=== PATIENT | female | born 1990 | race African-American/Black ===

== ENCOUNTER → 2016-04-15 | Outpatient (CLI) | payer OTHER ==
[2016-04-15 12:08] LABS: ABSOLUTE EOSINOPHILS # (AUTO) 0.1 10^3/uL (0.0-0.6); ABSOLUTE LYMPHOCYTES (AUTO) 1.5 10^3/uL (0.5-4.7); ABSOLUTE MONOCYTES (AUTO) 0.3 10^3/uL (0.1-1.4); ABSOLUTE NEUT (AUTO) 4.4 10^3/uL (1.7-8.2); BASOPHILS % (AUTO) 0.4 % (0-2); EOSINOPHILS % (AUTO) 2.1 % (0-6); HEMATOCRIT 38.3 % (36.0-47.0); HGB HCT DIFFERENCE -2.3; LYMPHOCYTES % (AUTO) 23.6 % (13-45); MEAN CORPUSCULAR HEMOGLOBIN 26.5 pg (27.0-33.4); MEAN CORPUSCULAR HGB CONC 31.4 g/dL (32.0-36.0); MEAN CORPUSCULAR VOLUME 84 fl (80-97); RED BLOOD COUNT 4.55 10^6/uL (3.72-5.28); RED CELL DISTRIBUTION WIDTH 13.6 % (11.5-14.0); SEGMENTED NEUTROPHILS % (AUTO) 68.9 % (42-78); WHITE BLOOD COUNT 6.4 10^3/uL (4.0-10.5)
[2016-04-15 12:32] LABS: ALANINE AMINOTRANSFERASE 20 U/L (9-52); ALBUMIN 3.8 g/dL (3.5-5.0); ALKALINE PHOSPHATASE 63 U/L (38-126); ANION GAP 13 (5-19); ASPARTATE AMINO TRANSFERASE 20 U/L (14-36); BILIRUBIN,TOTAL 0.5 mg/dL (0.2-1.3); BLOOD UREA NITROGEN 17 mg/dL (7-20); CALCIUM 9.7 mg/dL (8.4-10.2); CARBON DIOXIDE 27 mmol/L (22-30); CHLORIDE 99 mmol/L (98-107); CREATININE RESULT 0.54 mg/dL (0.52-1.25); GLUCOSE 257 mg/dL (75-110); POTASSIUM 4.4 mmol/L (3.6-5.0); SODIUM 138.6 mmol/L (137-145); TOTAL PROTEIN 7.1 g/dL (6.3-8.2)
== END ==
LOC: CCC 10:31
DX: E11.8 Type 2 diabetes mellitus with unspecified complications (principal)
CPT/HCPCS: 36415; 80053; 83036; 84443; 85025

== ENCOUNTER → 2016-07-23 | Outpatient (CLI) | payer OTHER ==
[2016-07-23 12:21] LABS: ANION GAP 15 (5-19); BLOOD UREA NITROGEN 15 mg/dL (7-20); CALCIUM 9.7 mg/dL (8.4-10.2); CARBON DIOXIDE 22 mmol/L (22-30); CHLORIDE 102 mmol/L (98-107); CREATININE RESULT 0.54 mg/dL (0.52-1.25); GLUCOSE 279 mg/dL (75-110); SODIUM 138.7 mmol/L (137-145)
== END ==
LOC: CCC 10:35
DX: E11.8 Type 2 diabetes mellitus with unspecified complications (principal)
CPT/HCPCS: 36415; 80048; 83036

== ENCOUNTER 2016-10-19 17:28 | Emergency (ER) | payer SELFPAY ==
[2016-10-19] MEDS ORDERED: ONDANSETRON ODT 4 MG TAB (6 TAB/DSPK) PO PRN (18:50)
[2016-10-19] MEDS ORDERED: PENICILLIN V POTASSIUM 500 MG TABLET PO ONE (18:50)
--- NOTE | 2016-10-19 18:52 | ER Document Report ---
ED Medical Screen (RME) - General Chief Complaint: High Blood Sugar Stated Complaint: BLOOD SUGAR PROBLEM Time Seen by Provider: 10/19/16 18:47 Mode of Arrival: Ambulatory Information source: Patient Notes: 26-year-old female that presents to the emergency room with intermittent elevations and her sugar. She does report that she has not had any fevers, but she has had some teeth pain after "cracking a tooth". Denies any abdominal pain , dysuria TRAVEL OUTSIDE OF THE [place] IN LAST 30 DAYS: No - HPI Onset: Last week Onset/Duration: Gradual Quality of pain: No pain Severity: None Pain Level: Denies Associated Symptoms: Other - dental pain. denies: Chest pain, Fever, Shortness of breath Exacerbated by: Denies Relieved by: Denies Similar symptoms previously: No Recently seen / treated by doctor: No - Related Data Smoking: Non-smoker Frequency of alcohol use: None Drug Abuse: None Allergies/Adverse Reactions: No Known Allergies Allergy (Verified 03/20/16 16:18) Past Medical History - General Information source: Patient - Social History Cigarette use (# per day): No Chew tobacco use (# tins/day): No Frequency of alcohol use: None Drug Abuse: None Lives with: Family Family history: Reviewed & Not Pertinent - Past Medical History Cardiac Medical History: Reports: None Pulmonary Medical History: Reports: None Denies: Hx Tuberculosis EENT Medical History: Reports: None Neurological Medical History: Reports: None Endocrine Medical History: Reports: Hx Diabetes Mellitus Type 1 Renal/ Medical History: Denies: Hx Peritoneal Dialysis Malignancy Medical History: Reports: None GI Medical History: Reports: None Musculoskeltal Medical History: Reports None Skin Medical History: Reports None Psychiatric Medical History: Denies: Hx Depression Traumatic Medical History: Reports: None Infectious Medical History: Reports: None Past Surgical History: Denies: Hx Pacemaker - Immunizations Immunizations up to date: Yes Hx Diphtheria, Pertussis, Tetanus Vaccination: Yes Review of Systems - Review of Systems Constitutional: denies: Chills, Fever EENT: See HPI Cardiovascular: No symptoms reported Respiratory: No symptoms reported Gastrointestinal: No symptoms reported Genitourinary: No symptoms reported Female Genitourinary: No symptoms reported Musculoskeletal: No symptoms reported Skin: No symptoms reported Hematologic/Lymphatic: No symptoms reported Neurological/Psychological: No symptoms reported Physical Exam - Vital signs Vitals: Temp Pulse Resp BP Pulse Ox 98.3 F 105 H 19 118/83 98 10/19/16 17:46 10/19/16 17:46 10/19/16 17:46 10/19/16 17:46 10/19/16 17:46 Notes: Physical exam: GENERAL: Well-appearing 26-year-old female, no acute distress, alert and oriented 3 HEAD: Atraumatic, normocephalic. EYES: Pupils equal round and reactive to light, extraocular movements intact, sclera anicteric, conjunctiva are normal. ENT: oropharynx clear without exudates. Moist mucous membranes. Does have some dental caries in the left upper and right upper with some tenderness over the tooth. Otherwise, the teeth look like they are in reasonable shape NECK: Normal range of motion, supple without lymphadenopathy or JVD. LUNGS: Breath sounds clear to auscultation bilaterally and equal. No wheezes rales or rhonchi. HEART: Regular rate and rhythm without murmurs, rubs or gallops. ABDOMEN: Soft, normoactive bowel sounds. No tenderness to palpation. No guarding, no rebound. No masses appreciated. EXTREMITIES: Normal range of motion, no pitting or edema. No clubbing or cyanosis. NEUROLOGICAL: Cranial nerves II through XII grossly intact. Normal speech, normal gait. PSYCH: Normal mood, normal affect. SKIN: Warm, Dry, normal turgor, no rashes or lesions noted. Course - Re-evaluation Re-evalutation: 10/19/16 18:49 Patient does have some signs of dental caries and she states that her sugars have been climbing in the 400 range. Due to this, I will treat her with some Penicillin VK for dental caries and I referred her to the [facility]. Repeat Accu-Chek in the ER is 187. Is tolerating fluids and otherwise looks good. 10/19/16 20:33 - Vital Signs Vital signs: Temp Pulse Resp BP Pulse Ox 97.9 F 88 16 101/18 L 100 10/19/16 19:36 10/19/16 19:36 10/19/16 19:36 10/19/16 19:36 10/19/16 19:36 - Laboratory Laboratory results interpreted by me: 10/19/16 17:49 POC Glucose 187 H Doctor's Discharge - Discharge Clinical Impression: Dental caries, Diabetes Condition: Stable Disposition: HOME, SELF-CARE Instructions: Dentist, Toothache ([facility]) Additional Instructions: Note: Take the Diflucan tablet to the antibiotics are complete if you start having symptoms of a yeast infection. Prescriptions: Fluconazole [Diflucan] 150 mg PO ONCE PRN #1 tablet PRN Reason: Penicillin V Potassium [Penicillin Vk 500 mg Tablet] 500 mg PO QID #28 tablet Referrals: [facility] [Provider Group] - Follow up as needed
[2016-10-19 19:37] VITALS: BP 101/18
== END 2016-10-19 19:37 | disposition home or self-care (01) ==
LOC: ER 17:28
DX: K02.9 Dental caries, unspecified (principal); E10.65 Type 1 diabetes mellitus with hyperglycemia
CPT/HCPCS: 82962; 99284

== ENCOUNTER 2016-10-27 21:16 | Emergency (ER) | payer SELFPAY ==
--- NOTE | 2016-10-27 22:56 | ER Document Report ---
ED General - General Mode of Arrival: Ambulatory Information source: Patient TRAVEL OUTSIDE OF THE [place] IN LAST 30 DAYS: No - HPI Onset: Just prior to arrival - Refer to HPI notes Similar symptoms previously: No Recently seen / treated by doctor: No <XIMENA BOLES - Last Filed: 10/28/16 02:36> <NOELCHON - Last Filed: 10/28/16 03:27> - General Chief Complaint: Nausea/Vomiting Stated Complaint: DIZZY Time Seen by Provider: 10/27/16 22:54 Notes: Patient is a 26-year-old female presenting to the emergency department for nausea and vomiting earlier this afternoon. Patient is an insulin-dependent diabetic. Patient states that her sugar has been 296 afternoon. Patient states she took her medications around 10:00 this morning. Patient took 14 units of NovoLog with his serial this afternoon. Patient also had a sharp headache, fruity breath and some blurry vision. Patient states that she has been feeling some dizziness and off-balance this when she walked this morning. Patient's last hemoglobin A1c was 9. Patient has had diabetes for 5 years and states her last DKA was July 2015. Patient denies any missed dosages of her medication. Patient states that she is finishing her menstrual cycle presently. Patient denies any chance of being . Patient has no known drug allergies. Patient's primary care physician is the [facility]. (XIMENA BOLES) - Related Data Allergies/Adverse Reactions: No Known Allergies Allergy (Verified 10/27/16 22:06) Past Medical History - General Information source: Patient - Social History Smoking Status: Never Smoker Cigarette use (# per day): No Chew tobacco use (# tins/day): No Smoking Education Provided: No Frequency of alcohol use: None Drug Abuse: None Family History: None Patient has suicidal ideation: No Patient has homicidal ideation: No Endocrine Medical History: Reports: Hx Diabetes Mellitus Type 1 Surgical Hx: Negative - Immunizations Immunizations up to date: Yes Hx Diphtheria, Pertussis, Tetanus Vaccination: Yes <XIMENA BOLES - Last Filed: 10/28/16 02:36> Review of Systems - Review of Systems Constitutional: No symptoms reported EENT: See HPI, Blurred vision Cardiovascular: See HPI, Dizziness Respiratory: No symptoms reported Gastrointestinal: See HPI, Nausea, Vomiting Genitourinary: No symptoms reported Female Genitourinary: No symptoms reported Musculoskeletal: No symptoms reported Skin: No symptoms reported Hematologic/Lymphatic: No symptoms reported Neurological/Psychological: See HPI, Headaches -: Yes All other systems reviewed and negative <XIMENA BOLES - Last Filed: 10/28/16 02:36> Physical Exam - Vital signs Interpretation: Normal <CLYDE BOLESINE - Last Filed: 10/28/16 02:36> <CHON COHEN - Last Filed: 10/28/16 03:27> - Vital signs Vitals: Temp Pulse Resp BP Pulse Ox 98.4 F 73 16 132/80 H 100 10/27/16 22:06 10/27/16 22:06 10/27/16 22:06 10/27/16 22:06 10/27/16 22:06 - Notes Notes: GENERAL: Alert, interacts well. No acute distress. HEAD: Normocephalic, atraumatic. EYES: Appear normal. Pupils equal, round, and reactive to light. ENT: Moist mucus membranes, tongue midline. NECK: Full range of motion. Supple. Trachea midline. LUNGS: Clear to auscultation bilaterally, no wheezes, rales, or rhonchi. No respiratory distress. HEART: Regular rate and rhythm. No murmurs, gallops, or rubs. ABDOMEN: Soft, non-tender. Non-distended. Normal bowel sounds. EXTREMITIES: Moves all 4 extremities spontaneously. Normal strength. No edema. NEUROLOGICAL: Alert and oriented x3. Normal speech. No focal neurological deficits. GSC 15. PSYCH: Normal affect, normal mood. SKIN: Warm, dry, normal turgor. No rashes or lesions noted. (XIMENA BOLES) Course - Laboratory Result Diagrams: 10/27/16 23:25 10/27/16 23:25 <ELVIXIMENA - Last Filed: 10/28/16 02:36> - Laboratory Result Diagrams: 10/27/16 23:25 10/27/16 23:25 <CHON COHEN - Last Filed: 10/28/16 03:27> - Re-evaluation Re-evalutation: 10/28/16 00:28 Presents emergency department chief plan nausea and vomiting earlier this afternoon. She is insulin-dependent diabetic that her sugar was running to 96. Camille lightheaded dizzy but not vertiginous in nature. Last hemoglobin A1c she says is greater than 10. She denies any headache neck pain or history of trauma or fall she is well-appearing nontoxic in no acute distress with stable vital signs not tachycardic and afebrile. No acute abdominal guarding rebound rigidity labs completely normal the exception of blood in her urine she says she is just getting off of her period. Her sugar here is 113 she is not DKA. No active vomiting or abdominal pain on examination her urinary tract infection. Given Zofran discharge follow-up primary care physician in 1-2 days and discussed reasons for ED return sooner 10/28/16 00:30 (CHON COHEN) - Vital Signs Vital signs: Temp Pulse Resp BP Pulse Ox 98.2 F 72 16 91/62 L 100 10/28/16 00:46 10/28/16 00:46 10/28/16 00:46 10/28/16 00:46 10/28/16 00:46 - Laboratory Laboratory results interpreted by me: 10/27/16 10/27/16 23:05 23:25 Creatinine 0.50 L Glucose 113 H Urine Protein 30 H Urine Blood LARGE H Discharge <XIMENA BOLES - Last Filed: 10/28/16 02:36> <CHON COHEN - Last Filed: 10/28/16 03:27> - Discharge Clinical Impression: Nausea, Dizziness Condition: Stable Disposition: HOME, SELF-CARE Additional Instructions: Nausea or Vomiting, Nonspecific Vomiting (or nausea without vomiting) can be caused by many different problems. Of course, it can mean that something's wrong with the stomach, such as "stomach flu," ulcers, or inflammation. But it can also be a symptom of a problem that has nothing to do with the stomach or intestines. Vomiting is common with severe headaches, earaches, and tonsillitis. We see it with pneumonia or heart attacks. Drugs can cause nausea. Many abdominal problems cause vomiting; for example, gallstones, kidney stones, pancreatitis, and intestinal obstruction (blocked bowels). In most cases, curing the vomiting depends on fixing the problem that caused it. For temporary relief, we may use an anti-nausea medicine. For home use, we can prescribe suppositories, chewable pills, pills that dissolve in the mouth, or liquid anti-nausea drugs. If the vomiting seems to be caused by a problem in the stomach, acid-suppressing drugs may be prescribed as well. It's important to avoid dehydration. Sip clear liquids. Take increasing amounts of fluid over the first 24 hours. Then start small amounts of bland foods (such as dry toast, applesauce, mashed potato). Avoid aspirin, tobacco, and alcohol. Gradually resume your usual diet. If the vomiting worsens, if the problem that's making you vomit worsens, or if there's evidence of bleeding in the stomach (such as black, tarry stool, bloody or black vomit, or lightheadedness), you should return immediately. Call your doctor if you aren't improved in 24 to 36 hours. Dizziness Under normal circumstances, your sense of balance is controlled by a number of signals that your brain receives from several locations: Eyes. No matter what your position, visual signals help you determine where your body is in space and how it's moving. Sensory nerves. These are in your skin, muscles and joints. Sensory nerves send messages to your brain about body movements and positions. Inner ear. The organ of balance in your inner ear is the vestibular labyrinth. It includes loop-shaped structures (semicircular canals) that contain fluid and fine, hair-like sensors that monitor the rotation of your head. Near the semicircular canals are the utricle and saccule, which contain tiny particles called otoconia ([id number]). These particles are attached to sensors that help detect gravity and [id number] motion. Good balance depends on at least two of these three sensory systems working well. For instance, closing your eyes while washing your hair in the shower doesn't mean you'll lose your balance. Signals from your inner ear and sensory nerves help keep you upright. However, if your central nervous system can't process signals from all of these locations, if the messages are contradictory, or if the sensory systems aren't functioning properly, you may experience loss of balance. Dizziness may have a number of potential causes. These may include: Vertigo Vertigo - the false sense of motion or spinning - is the most common symptom of dizziness. Sitting up or moving around may make it worse. Sometimes vertigo is severe enough to cause nausea and vomiting. Vertigo usually results from a problem with the nerves and the structures of the balance mechanism in your inner ear (vestibular system), which sense movement and changes in your head position. Abnormal rhythmic eye movements ( nystagmus) almost always accompany vertigo. Causes of vertigo may include: Benign paroxysmal positional vertigo (BPPV). BPPV involves intense, brief episodes of vertigo associated with a change in the position of your head, often when you turn over in bed or sit up in the morning. It occurs when normal calcium carbonate crystals (otoconia) break loose and fall into the wrong part of the canals in your inner ear. When these particles shift, they stimulate sensors in your ear, producing an episode of vertigo. Doctors don't know what causes BPPV, but it may be a natural result of aging. Trauma to your head also may lead to BPPV. Inflammation in the inner ear. Signs and symptoms of inflammation of the inner ear (acute vestibular neuronitis or labyrinthitis) include sudden, intense vertigo that may persist for several days, with nausea and vomiting. It can be incapacitating, requiring bed rest to minimize the signs and symptoms. Fortunately, vestibular neuronitis generally subsides and clears up on its own. Recovery time may be shorter with vestibular rehabilitation exercises. Although the cause of this condition is unknown, it may be a viral infection. Meniere's disease. This disease involves the excessive buildup of fluid in your inner ear. It may affect adults at any age and is characterized by sudden episodes of vertigo lasting 30 minutes to an hour or longer. Other signs and symptoms include the feeling of fullness in your ear, buzzing or ringing in your ear (tinnitus), and fluctuating hearing loss. The cause of Meniere's disease is unknown. Vestibular migraine. People who experience a vestibular migraine are very sensitive to motion. Dizziness and vertigo caused by a vestibular migraine may be triggered by turning your head quickly, being in a crowded or confusing place , driving or riding in a vehicle, or even watching movement on TV. A vestibular migraine may cause feelings of imbalance or unsteadiness, hearing loss, "muffled " hearing, or ringing in your ears (tinnitus). For most people with a vestibular migraine, vertigo doesn't necessarily happen at the same time as the headache. Instead, typical migraine triggers may lead to vertigo without an actual migraine. Attacks of migrainous vertigo can last from a few minutes to several days. Acoustic neuroma. An acoustic neuroma (schwannoma) is a noncancerous (benign ) growth on the acoustic nerve, which connects the inner ear to your brain. Signs and symptoms of an acoustic neuroma may include dizziness, loss of balance , hearing loss and tinnitus. Rapid changes in motion. Riding on roller coasters or in boats, cars or even airplanes may on occasion make you dizzy. Other causes. Rarely, vertigo can be a symptom of a more serious neurological problem such as a stroke, brain hemorrhage or multiple sclerosis. Feeling of faintness (presyncope) "Presyncope" is the medical term for feeling faint and lightheaded without losing consciousness. Sometimes nausea, pale skin and a sense of dizziness accompany a feeling of faintness. Causes of presyncope include: Drop in blood pressure (orthostatic hypotension). A dramatic drop in your systolic blood pressure - the higher number in your blood pressure reading - may result in lightheadedness or a feeling of faintness. It can occur after sitting up or standing too quickly. Inadequate output of blood from the heart. Conditions such as partially blocked arteries (atherosclerosis), disease of the heart muscle (cardiomyopathy) , abnormal heart rhythm (arrhythmia) or a decrease in blood volume may cause inadequate blood flow from your heart. Loss of balance (disequilibrium) Disequilibrium is the loss of balance or the feeling of unsteadiness when you walk. Causes may include: Inner ear (vestibular) problems. Abnormalities with your inner ear can cause you to feel like you are floating, have a heavy head or are unsteady in the dark. Sensory disorders. Failing vision and nerve damage in your legs (peripheral neuropathy) are common in older adultsand may result in difficulty maintaining your balance. Joint and muscle problems. Muscle weakness and osteoarthritis - the type of arthritis that involves wear and tear of your joints - can contribute to loss of balance when it involves your weight-bearing joints. Medications. Loss of balance can be a side effect of certain medications, such as anti-seizure drugs, sedatives and tranquilizers. Lightheadedness and other kinds of 'dizziness' Feeling lightheaded is the feeling of being "spaced out" or having the sensation of spinning inside your head. It can also give you the sensation that if your lightheadedness worsens, you might lose consciousness. Causes may include: Inner ear disorders. These abnormalities of your inner ear can lead to illusions of motion and make you feel like you're floating. Anxiety disorders. Certain anxiety disorders, such as panic attacks and a fear of leaving home or being in large, open spaces (agoraphobia), may cause lightheadedness. Hyperventilation. Abnormally rapid breathing that often accompanies anxiety disorders may make you feel lightheaded. Referrals: [facility] [Provider Group] (Call for a follow-up appointment in 3- 5 days return for increasing worsening or new symptoms) Scribe Attestation: 10/28/16 00:30 I personally performed the services described in the documentation reviewed the documentation recorded by my scribe in my presence and it accurately and completely records my words and actions (CHON COHEN) Scribe Documentation - Scribe Written by Shiela:: Shiela Valdes, 10/28/2016 2:50 acting as scribe for :: Noel <XIMENA BOLES - Last Filed: 10/28/16 02:36>
[2016-10-27] MEDS ORDERED: MECLIZINE HCL 25 MG TABLET PO ONE (23:17)
[2016-10-27] MEDS ORDERED: ONDANSETRON 4 MG TAB.RAPDIS PO ONE (23:18)
[2016-10-27 23:31] LABS: APPEARANCE,URINE SLIGHTLY-CLOUDY; BILIRUBIN,URINE NEGATIVE (NEGATIVE); GLUCOSE, URINE NEGATIVE (NEGATIVE); KETONES,URINE NEGATIVE (NEGATIVE); LEUKOCYTE ESTERASE,URINE NEGATIVE (NEGATIVE); NITRITE,URINE NEGATIVE (NEGATIVE); PROTEIN,URINE 30 mg/dL (NEGATIVE); URINE SPECIFIC GRAVITY 1.013; UROBILINOGEN,URINE NEGATIVE mg/dL (<2.0)
[2016-10-27 23:37] LABS: ABSOLUTE BASOPHILS # (AUTO) 0.1 10^3/uL (0.0-0.2); ABSOLUTE EOSINOPHILS # (AUTO) 0.2 10^3/uL (0.0-0.6); ABSOLUTE LYMPHOCYTES (AUTO) 2.5 10^3/uL (0.5-4.7); ABSOLUTE MONOCYTES (AUTO) 0.4 10^3/uL (0.1-1.4); ABSOLUTE NEUT (AUTO) 4.2 10^3/uL (1.7-8.2); BASOPHILS % (AUTO) 0.8 % (0-2); EOSINOPHILS % (AUTO) 2.4 % (0-6); HEMATOCRIT 37.5 % (36.0-47.0); HEMOGLOBIN 12.6 g/dL (12.0-15.5); HGB HCT DIFFERENCE 0.3; MEAN CORPUSCULAR HEMOGLOBIN 27.6 pg (27.0-33.4); MEAN CORPUSCULAR HGB CONC 33.6 g/dL (32.0-36.0); MEAN CORPUSCULAR VOLUME 82 fl (80-97); RED BLOOD COUNT 4.57 10^6/uL (3.72-5.28); RED CELL DISTRIBUTION WIDTH 12.9 % (11.5-14.0); SEGMENTED NEUTROPHILS % (AUTO) 57.8 % (42-78); WHITE BLOOD COUNT 7.3 10^3/uL (4.0-10.5)
[2016-10-27 23:45] LABS: URINE BARBITURATES SCREEN NEGATIVE; URINE METHADONE SCREEN NEGATIVE; URINE OPIATES LOW NEGATIVE; URINE PHENCYCLIDINE SCREEN NEGATIVE
[2016-10-27 23:51] LABS: ANION GAP 12 (5-19); BLOOD UREA NITROGEN 11 mg/dL (7-20); CALCIUM 10.2 mg/dL (8.4-10.2); CARBON DIOXIDE 27 mmol/L (22-30); CHLORIDE 103 mmol/L (98-107); GLUCOSE 113 mg/dL (75-110); POTASSIUM 3.9 mmol/L (3.6-5.0); SODIUM 141.6 mmol/L (137-145)
[2016-10-28 00:21] LABS: VENOUS BLOOD BASE EXCESS -1.5 mmol/L; VENOUS BLOOD HCO3 25.3 mmol/L (20-32); VENOUS BLOOD PCO2 51.5 mmHg (35-63); VENOUS BLOOD PH 7.31 (7.30-7.42)
[2016-10-28 00:50] VITALS: BP 91/62
== END 2016-10-28 00:51 | disposition home or self-care (01) ==
LOC: ER 21:16
DX: R11.2 Nausea with vomiting, unspecified (principal); R42 Dizziness and giddiness; R51 Headache; Z79.4 Long term (current) use of insulin; E11.9 Type 2 diabetes mellitus without complications
CPT/HCPCS: 99284; 36415; 85025; 81025; 80048; 81001; 80307; 82803; S0119

== ENCOUNTER → 2016-12-29 | Outpatient (CLI) | payer OTHER | LOC: OD 15:27 | DX: E11.8 Type 2 diabetes mellitus with unspecified complications (principal) | CPT/HCPCS: 36415; 83036 ==

== ENCOUNTER 2017-01-18 19:11 | Emergency (ER) | payer SELFPAY ==
[2017-01-18] MEDS ORDERED: HYDROCODONE/ACETAMINOPHEN 5-325 MG TABLET PO ONE (19:49)
[2017-01-18] MEDS ORDERED: NORMAL SALINE 1000 ML 1,000 ML IV ONE ×2 (19:49→21:43)
[2017-01-18] MEDS ORDERED: ONDANSETRON HCL INJ/PF 4 MG/2 ML SDV IV ONE (19:50)
--- NOTE | 2017-01-18 19:54 | ER Document Report ---
ED GI/ - General Chief Complaint: Pelvic Pain Stated Complaint: ABDOMINAL PAIN Time Seen by Provider: 01/18/17 19:39 Notes: Patient is a 17-year-old female that comes emergency department for chief complaint of sharp mid to left lower pelvic pain, nausea, and breaking into a sweat with a particularly bad episode this morning of pain. She also reports vaginal bleeding that started today. She states she thinks she ruptured cyst, she had a similar episode about a month ago although she did not have an ultrasound at that time. She also states she has not eaten or drank much today , she is a type I diabetic, she did not take insulin this morning. She denies fever, she denies current nausea, she states pain has improved but not resolved. She denies vaginal discharge, flank pain, she states she has not been sexually active in over a year. TRAVEL OUTSIDE OF THE [place] IN LAST 30 DAYS: No - Related Data Allergies/Adverse Reactions: No Known Allergies Allergy (Unverified 01/18/17 19:22) Past Medical History - General Information source: Patient - Social History Smoking Status: Never Smoker Frequency of alcohol use: None Drug Abuse: None Lives with: Family Family History: Reviewed & Not Pertinent Patient has suicidal ideation: No Patient has homicidal ideation: No Endocrine Medical History: Reports: Hx Diabetes Mellitus Type 1 Renal/ Medical History: Denies: Hx Peritoneal Dialysis Surgical Hx: Negative - Immunizations Immunizations up to date: Yes Hx Diphtheria, Pertussis, Tetanus Vaccination: Yes Review of Systems - Review of Systems Constitutional: No symptoms reported EENT: No symptoms reported Cardiovascular: No symptoms reported Respiratory: No symptoms reported Gastrointestinal: See HPI Genitourinary: See HPI Female Genitourinary: See HPI Musculoskeletal: No symptoms reported Skin: No symptoms reported Hematologic/Lymphatic: No symptoms reported Neurological/Psychological: No symptoms reported Physical Exam - Vital signs Vitals: Temp Pulse Resp BP Pulse Ox 97.4 F 71 16 95/61 L 99 01/18/17 19:17 01/18/17 19:17 01/18/17 19:17 01/18/17 19:17 01/18/17 19:17 Interpretation: Normal - General General appearance: Appears well, Alert In distress: None - HEENT Head: Normocephalic, Atraumatic Eyes: Normal Conjunctiva: Normal Extraocular movements intact: Yes Eyelashes: Normal Pupils: PERRL Nasal: Normal Mouth/Lips: Normal Mucous membranes: Dry Pharynx: Normal Neck: Normal - Respiratory Respiratory status: No respiratory distress Chest status: Nontender Breath sounds: Normal Chest palpation: Normal - Cardiovascular Rhythm: Regular. No: Tachycardia Heart sounds: Normal auscultation, S1 appreciated, S2 appreciated Murmur: No - Abdominal Inspection: Normal Distension: No distension Bowel sounds: Normal Tenderness: Nontender. No: Tender, Guarding Organomegaly: No organomegaly - Back Back: Normal, Nontender. No: Tender, CVA tenderness - Extremities General upper extremity: Normal inspection, Nontender, Normal ROM, Normal strength General lower extremity: Normal inspection, Nontender, Normal ROM, Normal strength - Neurological Neuro grossly intact: Yes Cognition: Normal Orientation: AAOx4 [place] Coma Scale Eye Opening: Spontaneous Clement Coma Scale Verbal: Oriented Clement Coma Scale Motor: Obeys Commands [place] Coma Scale Total: 15 Speech: Normal Motor strength normal: LUE, RUE, LLE, RLE Sensory: Normal - Psychological Associated symptoms: Normal affect, Normal mood - Skin Skin Temperature: Warm Skin Moisture: Dry Skin Color: Normal Course - Re-evaluation Re-evalutation: Patient appears clinically dry with dry mucous membranes, urinalysis shows elevated specific gravity, ketones, glucose, questionable urinary tract infection. CBC shows mild leukocytosis. This is nonspecific, patient has a fairly benign abdomen with only mild left lower quadrant tenderness on examination. Low suspicion of PID based on her reported symptoms, ultrasound does not show anything other than trace free fluid. Chemistry shows slightly low and bicarbonate, anion gap is normal, hyperglycemia noted. Patient given several boluses of IV fluids. Venous blood gas was checked at the same time and does not show acidosis whatsoever. I reevaluated patient. I did discuss her slightly lowered bicarbonate, dehydration, ketones in the urine, and type 1 diabetes risks. Discussed DKA and potential admission. Patient states that after IV fluid she feels normal again. She is asking to leave. Declined antibiotics for her urine, urine culture placed. Patient is very compliant with her medications, she is only had DKA once since being diagnosed with type diabetes. Because of venous blood gas , lack of anion gap, hydration here, and patient intelligence and compliance after discussion with patient with strict return precautions she states that she will leave and return if she worsens in any way. Patient and family member state understanding and agreement. - Vital Signs Vital signs: Temp Pulse Resp BP Pulse Ox 97.4 F 88 16 109/68 100 01/18/17 19:17 01/19/17 00:43 01/18/17 19:17 01/19/17 00:43 01/19/17 00:43 - Laboratory Result Diagrams: 01/18/17 20:48 01/18/17 21:28 Laboratory results interpreted by me: 01/18/17 01/18/17 01/18/17 20:48 21:11 21:28 WBC 13.1 H Seg Neutrophils % 88.4 H Lymphocytes % 8.5 L Monocytes % 2.2 L Absolute Neutrophils 11.6 H Carbon Dioxide 20 L Glucose 361 H POC Glucose 362 H Urine Glucose (UA) Urine Ketones Urine Blood Ur Leukocyte Esterase 01/18/17 01/18/17 01/19/17 23:12 23:19 00:02 WBC Seg Neutrophils % Lymphocytes % Monocytes % Absolute Neutrophils Carbon Dioxide Glucose POC Glucose 206 H 179 H Urine Glucose (UA) >=500 H Urine Ketones 80 H Urine Blood LARGE H Ur Leukocyte Esterase TRACE H Discharge - Discharge Clinical Impression: Pelvic pain, Hyperglycemia, Dehydration Condition: Stable Disposition: HOME, SELF-CARE Additional Instructions: Continue rehydration at home, try not to miss any insulin doses, follow-up with your provider for additional management. Your ultrasound shows some free fluid which does suggest you ruptured an ovarian cyst, but no concerning abnormalities are seen on your pelvic ultrasound. Please return the emergency department if you worsen in anyway including vomiting, returned or increased pain, fever, or any other concerning symptoms. Forms: Return to Work Referrals: [facility] [Primary Care Provider] - Follow up as needed
[2017-01-18] MEDS ORDERED: ACETAMINOPHEN 325 MG TABLET PO ONE (20:20)
[2017-01-18 21:01] LABS: ABSOLUTE BASOPHILS # (AUTO) 0.1 10^3/uL (0.0-0.2); ABSOLUTE LYMPHOCYTES (AUTO) 1.1 10^3/uL (0.5-4.7); ABSOLUTE MONOCYTES (AUTO) 0.3 10^3/uL (0.1-1.4); ABSOLUTE NEUT (AUTO) 11.6 10^3/uL (1.7-8.2); BASOPHILS % (AUTO) 0.7 % (0-2); EOSINOPHILS % (AUTO) 0.2 % (0-6); LYMPHOCYTES % (AUTO) 8.5 % (13-45); MEAN CORPUSCULAR HEMOGLOBIN 28.1 pg (27.0-33.4); MEAN CORPUSCULAR HGB CONC 33.4 g/dL (32.0-36.0); MEAN CORPUSCULAR VOLUME 84 fl (80-97); MONOCYTES % (AUTO) 2.2 % (3-13); RED BLOOD COUNT 4.64 10^6/uL (3.72-5.28); RED CELL DISTRIBUTION WIDTH 12.7 % (11.5-14.0); SEGMENTED NEUTROPHILS % (AUTO) 88.4 % (42-78); WHITE BLOOD COUNT 13.1 10^3/uL (4.0-10.5)
[2017-01-18 21:51] LABS: ALANINE AMINOTRANSFERASE 27 U/L (5-35); ALBUMIN 4.6 g/dL (3.7-5.6); ALKALINE PHOSPHATASE 89 U/L (50-135); ANION GAP 17 (5-19); ASPARTATE AMINO TRANSFERASE 16 U/L (5-30); BILIRUBIN,DIRECT 0.3 mg/dL (0.0-0.4); BILIRUBIN,TOTAL 1.1 mg/dL (0.2-1.3); BLOOD UREA NITROGEN 15 mg/dL (7-20); CARBON DIOXIDE 20 mmol/L (22-30); CHLORIDE 103 mmol/L (98-107); CREATININE RESULT 0.56 mg/dL (0.52-1.25); GLUCOSE 361 mg/dL (75-110); POTASSIUM 4.4 mmol/L (3.6-5.0); SODIUM 140.2 mmol/L (137-145); TOTAL PROTEIN 8.1 g/dL (6.3-8.2)
[2017-01-18 21:59] LABS: VENOUS BLOOD BASE EXCESS -3.7 mmol/L; VENOUS BLOOD HCO3 22.4 mmol/L (20-32); VENOUS BLOOD PCO2 44.7 mmHg (35-63); VENOUS BLOOD PH 7.32 (7.30-7.42)
--- NOTE | 2017-01-18 23:48 | RADIOLOGY REPORT (SQ) ---
EXAM DESCRIPTION: U/S NON OB PEL TV W/DOPPLER COMPLETED DATE/TIME: 01/18/2017 11:39 pm REASON FOR STUDY: sharp left pelvic pain COMPARISON: None. TECHNIQUE: Dynamic and static grayscale images acquired of the pelvis via transvaginal approach and recorded on PACS. Additional selected color Doppler and spectral images recorded. LIMITATIONS: None. FINDINGS: UTERUS: Contour normal. No mass. ENDOMETRIAL STRIPE: No focal or generalized thickening. No masses. CERVIX: No nabothian cysts. RIGHT OVARY: No abnormal masses. RIGHT OVARY DOPPLER: Normal arterial vascular flow without evidence for torsion. LEFT OVARY: No abnormal masses. LEFT OVARY DOPPLER: Normal arterial vascular flow without evidence for torsion. FREE FLUID: Small amount of free fluid is identified in the posterior cul-de-sac. OTHER: No other significant finding. MEASUREMENTS: UTERUS: 7.6 x 4.1 x 5.3 cm ENDOMETRIAL STRIPE: 14 mm RIGHT OVARY: 2.9 x 1.8 x 3.0 cm LEFT OVARY: 3.3 x 1.4 x 1.8 cm IMPRESSION: No significant pelvic abnormalities were identified. Findings as noted above. TECHNICAL DOCUMENTATION: JOB ID: [id number] [employer]- All Rights Reserved
[2017-01-18 23:57] LABS: APPEARANCE,URINE CLEAR; BILIRUBIN,URINE NEGATIVE (NEGATIVE); GLUCOSE, URINE >=500 mg/dL (NEGATIVE); KETONES,URINE 80 mg/dL (NEGATIVE); LEUKOCYTE ESTERASE,URINE TRACE (NEGATIVE); NITRITE,URINE NEGATIVE (NEGATIVE); PROTEIN,URINE NEGATIVE (NEGATIVE); URINE SPECIFIC GRAVITY 1.039; UROBILINOGEN,URINE NEGATIVE mg/dL (<2.0)
[2017-01-19] MEDS ORDERED: NORMAL SALINE 1000 ML 1,000 ML IV ONE (00:10)
[2017-01-19 00:45] VITALS: BP 109/68
== END 2017-01-19 00:45 | disposition home or self-care (01) ==
LOC: MERGE 19:11 → EDBD 19:11 → ER 19:11
DX: R10.2 Pelvic and perineal pain (principal); E10.65 Type 1 diabetes mellitus with hyperglycemia; E86.0 Dehydration; R10.9 Unspecified abdominal pain; R11.0 Nausea
CPT/HCPCS: 99284; 36415; 87086; 82962; 85025; 81025; 80053; 81001; 82803; 76830; 93976; J2405; J7030

== ENCOUNTER 2017-03-13 12:51 | Emergency (ER) | payer OTHER ==
[2017-03-13 14:11] LABS: ABSOLUTE BASOPHILS # (AUTO) 0.1 10^3/uL (0.0-0.2); ABSOLUTE EOSINOPHILS # (AUTO) 0.2 10^3/uL (0.0-0.6); ABSOLUTE LYMPHOCYTES (AUTO) 2.7 10^3/uL (0.5-4.7); ABSOLUTE MONOCYTES (AUTO) 0.7 10^3/uL (0.1-1.4); ABSOLUTE NEUT (AUTO) 5.7 10^3/uL (1.7-8.2); BASOPHILS % (AUTO) 0.5 % (0-2); EOSINOPHILS % (AUTO) 2.4 % (0-6); HEMATOCRIT 36.7 % (36.0-47.0); HEMOGLOBIN 12.4 g/dL (12.0-15.5); HGB HCT DIFFERENCE 0.5; LYMPHOCYTES % (AUTO) 28.6 % (13-45); MEAN CORPUSCULAR HEMOGLOBIN 27.6 pg (27.0-33.4); MEAN CORPUSCULAR HGB CONC 33.7 g/dL (32.0-36.0); MEAN CORPUSCULAR VOLUME 82 fl (80-97); MONOCYTES % (AUTO) 7.5 % (3-13); RED BLOOD COUNT 4.48 10^6/uL (3.72-5.28); WHITE BLOOD COUNT 9.3 10^3/uL (4.0-10.5)
[2017-03-13 14:24] LABS: ALANINE AMINOTRANSFERASE 24 U/L (9-52); ALBUMIN 4.2 g/dL (3.5-5.0); ALKALINE PHOSPHATASE 83 U/L (38-126); ANION GAP 12 (5-19); ASPARTATE AMINO TRANSFERASE 14 U/L (14-36); BILIRUBIN,DIRECT 0.2 mg/dL (0.0-0.4); BILIRUBIN,TOTAL 0.4 mg/dL (0.2-1.3); BLOOD UREA NITROGEN 11 mg/dL (7-20); CALCIUM 10.1 mg/dL (8.4-10.2); CARBON DIOXIDE 25 mmol/L (22-30); CHLORIDE 104 mmol/L (98-107); CREATININE RESULT 0.58 mg/dL (0.52-1.25); GLUCOSE 157 mg/dL (75-110); POTASSIUM 3.7 mmol/L (3.6-5.0); SODIUM 141.2 mmol/L (137-145); TOTAL PROTEIN 7.5 g/dL (6.3-8.2)
[2017-03-13 14:30] LABS: APPEARANCE,URINE TURBID; BILIRUBIN,URINE NEGATIVE (NEGATIVE); GLUCOSE, URINE >=500 mg/dL (NEGATIVE); KETONES,URINE TRACE mg/dL (NEGATIVE); LEUKOCYTE ESTERASE,URINE LARGE (NEGATIVE); NITRITE,URINE NEGATIVE (NEGATIVE); PROTEIN,URINE >=500 mg/dL (NEGATIVE); URINE SPECIFIC GRAVITY 1.039; UROBILINOGEN,URINE NEGATIVE mg/dL (<2.0)
[2017-03-13 14:33] LABS: WBC,URINE 20-30 /HPF
[2017-03-13 14:34] LABS: BACTERIA,URINE TRACE /HPF; RBC,URINE 30-50 /HPF
[2017-03-13] MEDS ORDERED: HYDROCODONE/ACETAMINOPHEN 5-325 MG TABLET PO ONE (14:40)
[2017-03-13] MEDS ORDERED: CEFTRIAXONE 1 GM/D5W RTU 1 GM/50 ML RTUPB IV ONE (14:40)
[2017-03-13] MEDS ORDERED: NITROFURANTOIN MONOHYD/M-CRYST 100 MG CAPSULE PO ONE (15:00)
--- NOTE | 2017-03-13 15:12 | ER Document Report ---
ED Blood Sugar Problem - General Chief Complaint: High Blood Sugar Stated Complaint: BLOOD SUGAR PROBLEMS Time Seen by Provider: 03/13/17 13:16 Mode of Arrival: Ambulatory Information source: Patient Notes: Patient is a 26-year-old female who presents to the ER today for burning with urination 3 days. Patient admits to hesitancy and frequency of urination. She also states that she has some bleeding and she is unsure if she has started her menstrual cycle as it is 4 days early or if the bleeding is coming with the urine. She denies any abdominal or back pain. She denies any fevers or chills. She states that she has been passing little clots of blood. Patient also is a type I diabetic and states that she her sugars have been high , in the 300s over the past couple of days. She states that she gave herself her insulin and has been keeping it down the best she can. TRAVEL OUTSIDE OF THE [place] IN LAST 30 DAYS: No - Related Data Allergies/Adverse Reactions: No Known Allergies Allergy (Verified 03/13/17 12:51) Past Medical History - General Information source: Patient - Social History Smoking Status: Never Smoker Frequency of alcohol use: None Drug Abuse: None Family History: None, Reviewed & Not Pertinent Patient has suicidal ideation: No Patient has homicidal ideation: No Pulmonary Medical History: Denies: Hx Tuberculosis Endocrine Medical History: Reports: Hx Diabetes Mellitus Type 1 Renal/ Medical History: Denies: Hx Peritoneal Dialysis Psychiatric Medical History: Denies: Hx Depression Past Surgical History: Denies: Hx Pacemaker - Immunizations Immunizations up to date: Yes Hx Diphtheria, Pertussis, Tetanus Vaccination: Yes Review of Systems - Review of Systems Constitutional: No symptoms reported EENT: No symptoms reported Cardiovascular: No symptoms reported Respiratory: No symptoms reported Gastrointestinal: No symptoms reported Genitourinary: No symptoms reported Female Genitourinary: See HPI Musculoskeletal: No symptoms reported Skin: No symptoms reported Hematologic/Lymphatic: No symptoms reported Neurological/Psychological: No symptoms reported Physical Exam - Vital signs Vitals: Temp Pulse Resp BP Pulse Ox 98.0 F 100 16 109/87 H 99 03/13/17 13:06 03/13/17 13:06 03/13/17 13:06 03/13/17 13:06 03/13/17 13:06 - Notes Notes: PHYSICAL EXAMINATION: GENERAL: Well-appearing and in no acute distress. HEAD: Atraumatic, normocephalic. EYES: Pupils equal round and reactive to light, extraocular movements intact, sclera anicteric, conjunctiva are normal. NECK: Normal range of motion, supple without lymphadenopathy LUNGS: CTAB and equal. No wheezes rales or rhonchi. HEART: Regular rate and rhythm without murmurs ABDOMEN: Soft, no tenderness. No guarding, no rebound BACK: no vertebral tenderness, normal ROM GI/: no CVA tenderness Pelvic: Some blood in vaginal canal, no discharge noted, normal tenderness to exam, no cervical motion or adnexal tenderness EXTREMITIES: Normal range of motion, no pitting edema. No cyanosis. NEUROLOGICAL: Cranial nerves grossly intact. Normal sensory/motor exams. PSYCH: Normal mood, normal affect. SKIN: Warm, Dry, normal turgor, no rashes or lesions noted Course - Re-evaluation Re-evalutation: 03/13/17 16:59 Urinalysis shows large leuks with 20-30 white blood cells, patient started on Macrobid, wet mount negative, gonorrhea and chlamydia negative. I will also provide her with Pyridium. Patient appears to have started her menstrual cycle. 03/13/17 16:59 - Vital Signs Vital signs: Temp Pulse Resp BP Pulse Ox 97.5 F 84 15 112/65 100 03/13/17 15:41 03/13/17 15:41 03/13/17 15:41 03/13/17 15:41 03/13/17 15:41 - Laboratory Result Diagrams: 03/13/17 13:35 03/13/17 13:35 Laboratory results interpreted by me: 03/13/17 03/13/17 03/13/17 13:35 13:35 15:51 Glucose 157 H POC Glucose 66 L Urine Protein >=500 H Urine Glucose (UA) >=500 H Urine Ketones TRACE H Urine Blood LARGE H Ur Leukocyte Esterase LARGE H Urine Ascorbic Acid 40 H Discharge - Discharge Clinical Impression: menstrual cycle UTI (urinary tract infection) Qualifiers: Urinary tract infection type: site unspecified Hematuria presence: without hematuria Qualified Code(s): N39.0 - Urinary tract infection, site not specified Condition: Stable Disposition: HOME, SELF-CARE Additional Instructions: Return immediately for any new or worsening symptoms. Follow up with primary care provider, call tomorrow to make followup appointment. Prescriptions: Nitrofurantoin/Nitrofuran Mac [Macrobid 100 mg Capsule] 1 tab PO BID #20 capsule Phenazopyridine HCl [Pyridium 200 mg Tablet] 200 mg PO TID #15 tablet
[2017-03-13] MEDS ORDERED: ACETAMINOPHEN 325 MG TABLET PO ONE (15:32)
[2017-03-13 15:44] VITALS: BP 112/65
== END 2017-03-13 15:44 | disposition home or self-care (01) ==
LOC: ER 12:51
DX: N39.0 Urinary tract infection, site not specified (principal); N92.6 Irregular menstruation, unspecified; E10.65 Type 1 diabetes mellitus with hyperglycemia; R30.9 Painful micturition, unspecified; R39.11 Hesitancy of micturition; R35.0 Frequency of micturition
CPT/HCPCS: 99283; 36415; 87210; 82962; 85025; 80053; 81001; 87491; 87591; J8499

== ENCOUNTER 2017-03-23 09:52 | Emergency (ER) | payer SELFPAY ==
[2017-03-23] MEDS ORDERED: NORMAL SALINE 1000 ML 1,000 ML IV ONE (10:38)
[2017-03-23] MEDS ORDERED: DIPHENHYDRAMINE HCL 50 MG/ML VIAL IV ONE (10:38)
[2017-03-23] MEDS ORDERED: PROCHLORPERAZINE EDISYLATE INJ 10 MG/2 ML VIAL IV ONE (10:38)
--- NOTE | 2017-03-23 10:53 | ER Document Report ---
ED General - General Chief Complaint: Headache Stated Complaint: VISION BLURRED, HEADACHE Time Seen by Provider: 03/23/17 10:14 Mode of Arrival: Ambulatory Information source: Patient Notes: 26-year-old female history of diabetes migraine headaches presents with complaints of migraine headache with blurry vision. Patient notes light bothers her. Symptoms have been ongoing for about 4 days now. She admits to nausea associated with it. Patient was recently treated for urinary tract infection with Macrobid and believe this is causing nausea TRAVEL OUTSIDE OF THE [place] IN LAST 30 DAYS: No - HPI Onset: Last week Onset/Duration: Persistent Quality of pain: Achy Severity: Mild Pain Level: 1 Associated symptoms: Headache, Nausea, Vomiting Exacerbated by: Other Relieved by: Denies Similar symptoms previously: No Recently seen / treated by doctor: Yes - Related Data Allergies/Adverse Reactions: No Known Allergies Allergy (Verified 03/13/17 12:51) Past Medical History - Social History Smoking Status: Never Smoker Cigarette use (# per day): No Chew tobacco use (# tins/day): No Smoking Education Provided: No Frequency of alcohol use: None Drug Abuse: None Family History: None, Reviewed & Not Pertinent Patient has suicidal ideation: No Patient has homicidal ideation: No Pulmonary Medical History: Denies: Hx Tuberculosis Endocrine Medical History: Reports: Hx Diabetes Mellitus Type 1 Renal/ Medical History: Denies: Hx Peritoneal Dialysis Psychiatric Medical History: Denies: Hx Depression Past Surgical History: Denies: Hx Pacemaker - Immunizations Immunizations up to date: Yes Hx Diphtheria, Pertussis, Tetanus Vaccination: Yes Review of Systems - Review of Systems Notes: REVIEW OF SYSTEMS: CONSTITUTIONAL : Denies fever, chills, or sweats. Denies recent illness. EENT: Denies eye, ear, throat, or mouth pain or symptoms. Denies nasal or sinus congestion or discharge. Denies throat, tongue, or mouth swelling or difficulty swallowing. CARDIOVASCULAR: Denies chest pain. Denies palpitations or racing or irregular heart beat. Denies ankle edema. RESPIRATORY: Denies cough, cold, or chest congestion. Denies shortness of breath, difficulty breathing, or wheezing. GASTROINTESTINAL: Admits to nausea vomiting GENITOURINARY: Denies difficulty urinating, painful urination, burning, frequency, blood in urine, or discharge. FEMALE GENITOURINARY: Denies vaginal bleeding, heavy or abnormal periods, irregular periods. Denies vaginal discharge or odor. MUSCULOSKELETAL: Denies back or neck pain or stiffness. Denies joint pain or swelling. SKIN: Denies rash, lesions or sores. HEMATOLOGIC : Denies easy bruising or bleeding. LYMPHATIC: Denies swollen, enlarged glands. NEUROLOGICAL: Admits to headache PSYCHIATRIC: Denies anxiety or stress. Denies depression, suicidal ideation, or homicidal ideation. ALL OTHER SYSTEMS REVIEWED AND NEGATIVE. PHYSICAL EXAMINATION: GENERAL: Well-appearing, well-nourished and in no acute distress. HEAD: Atraumatic, normocephalic. EYES: Pupils equal round and reactive to light, extraocular movements intact, conjunctiva are normal. ENT: Nares patent, oropharynx clear without exudates. Moist mucous membranes. NECK: Normal range of motion, supple without lymphadenopathy LUNGS: Breath sounds clear to auscultation bilaterally and equal. No wheezes rales or rhonchi. HEART: Regular rate and rhythm without murmurs ABDOMEN: Soft, nontender, nondistended abdomen. No guarding, no rebound. No masses appreciated. Female : deferred Musculoskeletal: Normal range of motion, no pitting or edema. No cyanosis. NEUROLOGICAL: Cranial nerves grossly intact. Normal speech, normal gait. Normal sensory, motor exams light sensitivity noted PSYCH: Normal mood, normal affect. SKIN: Warm, Dry, normal turgor, no rashes or lesions noted. Dictation was performed using [employer] voice recognition software Physical Exam - Vital signs Vitals: Temp Pulse Resp BP Pulse Ox 98.3 F 75 16 131/73 H 100 03/23/17 10:00 03/23/17 10:00 03/23/17 10:00 03/23/17 10:00 03/23/17 10:00 Course - Re-evaluation Re-evalutation: 03/23/17 10:53 Patient's presentation is consistent with migraine headache, lab work is pending as well as CT imaging she is otherwise well-appearing no distress IV fluids will be given, she is noted to be slightly hyperglycemic 03/23/17 13:09 Patient is quite drowsy after receiving Compazine and Benadryl and states she feels strange and anxious. I believe this is secondary to Compazine. Her workup otherwise was quite benign repeated blood sugar noted improvement. Family members here to take her home. I have explained very strict return precautions and he states he understands and will return if there are any other concerns. I will given him follow-up with neurology as well for further evaluation and care After performing a Medical Screening Examination, I estimate there is LOW risk for ACUTE GLAUCOMA, TEMPORAL ARTERITIS, MENINGITIS, INCRANIAL HEMORRHAGE, or ISCHEMIC STROKE thus I consider the discharge disposition reasonable. I have reevaluated this patient multiple times and no significant life threatening changes are noted. The patient and I have discussed the diagnosis and risks, and we agree with discharging home with close follow-up with the understanding that symptoms and presentations can change. We also discussed returning to the Emergency Department immediately if new or worsening symptoms occur. We have discussed the symptoms which are most concerning (e.g., changing or worsening symptoms, new numbness or weakness, vomiting, fever) that necessitate immediate return. - Vital Signs Vital signs: Temp Pulse Resp BP Pulse Ox 97.4 F 99 16 144/72 H 100 03/23/17 12:26 03/23/17 12:26 03/23/17 12:26 03/23/17 12:26 03/23/17 12:26 - Laboratory Result Diagrams: 03/23/17 11:28 03/23/17 11:28 Laboratory results interpreted by me: 03/23/17 03/23/17 03/23/17 10:21 11:28 11:28 Glucose 232 H POC Glucose 247 H Total Protein 8.5 H Urine Glucose (UA) >=500 H 03/23/17 12:29 Glucose POC Glucose 173 H Total Protein Urine Glucose (UA) - Diagnostic Test Radiology reviewed: Image reviewed, Reports reviewed Discharge - Discharge Clinical Impression: Blurry vision Migraine headache Qualifiers: Migraine type: unspecified Status migrainosus presence: without status migrainosus Intractability: not intractable Qualified Code(s): G43.909 - Migraine, unspecified, not intractable, without status migrainosus Condition: Stable Disposition: HOME, SELF-CARE Instructions: Intravenous Compazine for Headaches ([facility]), Use of Diphenhydramine , Headache ([facility]) Referrals: FELICIANO PAZ MD [ACTIVE STAFF] - Follow up in 3-5 days
--- NOTE | 2017-03-23 11:09 | RADIOLOGY REPORT (SQ) ---
EXAM DESCRIPTION: CT HEAD WITHOUT COMPLETED DATE/TIME: 03/23/2017 11:01 am REASON FOR STUDY: headache COMPARISON: 06/03/2012 TECHNIQUE: Axial images acquired through the brain without intravenous contrast. Images reviewed wi th bone, brain and subdural windows. Images stored on PACS. All CT scanners at this facility use dose modulation, iterative reconstruction, and/or weight based d osing when appropriate to reduce radiation dose to as low as reasonably achievable (ALARA). [facility]: Dose Right [facility]: CareDose [facility]: Dose Right [facility]: Teradose 4D [facility]: [employer] - [facility] RADIATION DOSE: CT Rad equipment meets quality standard of care and radiation dose reduction techniq ues were employed. CTDIvol: 64.6 mGy. DLP: 1163 mGy-cm. mGy. LIMITATIONS: None. FINDINGS: VENTRICLES: Normal size and contour. CEREBRUM: No masses. No hemorrhage. No midline shift. No evidence for acute infarction. Normal gra y/white matter differentiation. No areas of low density in the white matter. CEREBELLUM: No masses. No hemorrhage. No alteration of density. No evidence for acute infarction. EXTRAAXIAL SPACES: No fluid collections. No masses. ORBITS AND GLOBE: No intra- or extraconal masses. Normal contour of globe without masses. CALVARIUM: No fracture. PARANASAL SINUSES: No fluid or mucosal thickening. SOFT TISSUES: No mass or hematoma. OTHER: No other significant finding. IMPRESSION: NORMAL BRAIN CT WITHOUT CONTRAST. EVIDENCE OF ACUTE STROKE: NO. COMMENT: Quality ID # [id number]: Final reports with documentation of one or more dose reduction techniques (e.g., Automated exposure control, adjustment of the mA and/or kV according to patient size, use of iterative reconstruction technique) TECHNICAL DOCUMENTATION: JOB ID: [id number] [employer]- All Rights Reserved
[2017-03-23 11:38] LABS: ABSOLUTE BASOPHILS # (AUTO) 0.1 10^3/uL (0.0-0.2); ABSOLUTE EOSINOPHILS # (AUTO) 0.2 10^3/uL (0.0-0.6); ABSOLUTE LYMPHOCYTES (AUTO) 2.9 10^3/uL (0.5-4.7); ABSOLUTE MONOCYTES (AUTO) 0.5 10^3/uL (0.1-1.4); ABSOLUTE NEUT (AUTO) 5.3 10^3/uL (1.7-8.2); EOSINOPHILS % (AUTO) 2.5 % (0-6); HEMATOCRIT 41.6 % (36.0-47.0); HEMOGLOBIN 13.6 g/dL (12.0-15.5); HGB HCT DIFFERENCE -0.8; LYMPHOCYTES % (AUTO) 32.2 % (13-45); MEAN CORPUSCULAR HEMOGLOBIN 27.1 pg (27.0-33.4); MEAN CORPUSCULAR HGB CONC 32.7 g/dL (32.0-36.0); MEAN CORPUSCULAR VOLUME 83 fl (80-97); MONOCYTES % (AUTO) 5.1 % (3-13); RED BLOOD COUNT 5.02 10^6/uL (3.72-5.28); RED CELL DISTRIBUTION WIDTH 13.1 % (11.5-14.0); SEGMENTED NEUTROPHILS % (AUTO) 59.2 % (42-78)
[2017-03-23 11:42] LABS: APPEARANCE,URINE SLIGHTLY-CLOUDY; BILIRUBIN,URINE NEGATIVE (NEGATIVE); GLUCOSE, URINE >=500 mg/dL (NEGATIVE); KETONES,URINE NEGATIVE (NEGATIVE); LEUKOCYTE ESTERASE,URINE NEGATIVE (NEGATIVE); NITRITE,URINE NEGATIVE (NEGATIVE); PROTEIN,URINE NEGATIVE (NEGATIVE); URINE SPECIFIC GRAVITY 1.038; UROBILINOGEN,URINE NEGATIVE mg/dL (<2.0)
[2017-03-23 11:58] LABS: ALANINE AMINOTRANSFERASE 23 U/L (9-52); ALBUMIN 4.6 g/dL (3.5-5.0); ALKALINE PHOSPHATASE 84 U/L (38-126); ANION GAP 11 (5-19); ASPARTATE AMINO TRANSFERASE 24 U/L (14-36); BILIRUBIN,DIRECT 0.2 mg/dL (0.0-0.4); BILIRUBIN,TOTAL 0.6 mg/dL (0.2-1.3); BLOOD UREA NITROGEN 12 mg/dL (7-20); CALCIUM 10.1 mg/dL (8.4-10.2); CARBON DIOXIDE 29 mmol/L (22-30); CHLORIDE 101 mmol/L (98-107); CREATININE RESULT 0.52 mg/dL (0.52-1.25); GLUCOSE 232 mg/dL (75-110); POTASSIUM 4.3 mmol/L (3.6-5.0); SODIUM 140.7 mmol/L (137-145); TOTAL PROTEIN 8.5 g/dL (6.3-8.2)
[2017-03-23 13:12] VITALS: BP 119/64
== END 2017-03-23 13:15 | disposition home or self-care (01) ==
LOC: ER 09:52
DX: G43.909 Migraine, unspecified, not intractable, without status migrainosus (principal); H53.8 Other visual disturbances; R11.2 Nausea with vomiting, unspecified; E10.65 Type 1 diabetes mellitus with hyperglycemia
CPT/HCPCS: 99284; 96361; 96374; 96375; 36415; 82962; 85025; 81025; 80053; 81001; 70450; J1200; J0780; J7030

== ENCOUNTER 2017-03-26 00:31 | Emergency (ER) | payer SELFPAY ==
[2017-03-26] MEDS ORDERED: MECLIZINE HCL 25 MG TABLET PO ONE (01:25)
[2017-03-26] MEDS ORDERED: NORMAL SALINE 1000 ML 1,000 ML IV ONE (01:25)
[2017-03-26] MEDS ORDERED: ONDANSETRON HCL INJ/PF 4 MG/2 ML SDV IV ONE (01:26)
--- NOTE | 2017-03-26 01:28 | ER Document Report ---
ED Dizziness/Weakness - General Chief Complaint: Dizziness Stated Complaint: DIZZY Time Seen by Provider: 03/26/17 01:15 Mode of Arrival: Ambulatory Information source: Patient Notes: Patient presents complaining of dizziness with standing. Patient states that she has had some nausea off and on this evening as well. Patient reports that her blood sugar has been running high is concerned that is elevated tonight. Patient reports recent upper respiratory cold symptoms as well. Patient denies any concerns about . TRAVEL OUTSIDE OF THE [place] IN LAST 30 DAYS: No - HPI Patient complains to provider of: Dizziness Onset: This evening Onset/Duration: Gradual Quality of pain: No pain Associated symptoms: Nausea, Vertigo. denies: Chest pain, Fainted, Headache, Vomiting Exacerbated by: Change in position Baseline gait: Walks w/o assistance - Related Data Allergies/Adverse Reactions: No Known Allergies Allergy (Verified 03/13/17 12:51) Past Medical History - General Information source: Patient - Social History Smoking Status: Never Smoker Chew tobacco use (# tins/day): No Frequency of alcohol use: None Drug Abuse: None Occupation: Factory work Family History: None, Reviewed & Not Pertinent Patient has suicidal ideation: No Patient has homicidal ideation: No Pulmonary Medical History: Denies: Hx Tuberculosis Endocrine Medical History: Reports: Hx Diabetes Mellitus Type 1 Renal/ Medical History: Denies: Hx Peritoneal Dialysis Psychiatric Medical History: Denies: Hx Depression Surgical Hx: Negative Past Surgical History: Denies: Hx Pacemaker - Immunizations Immunizations up to date: Yes Hx Diphtheria, Pertussis, Tetanus Vaccination: Yes Review of Systems - Review of Systems Constitutional: Recent illness - Upper respiratory symptoms. denies: Fever EENT: No symptoms reported Cardiovascular: Dizziness. denies: Chest pain Respiratory: No symptoms reported. denies: Cough, Short of breath Gastrointestinal: Nausea. denies: Abdominal pain, Vomiting Genitourinary: No symptoms reported Female Genitourinary: No symptoms reported. denies: Musculoskeletal: No symptoms reported Skin: No symptoms reported Hematologic/Lymphatic: No symptoms reported Neurological/Psychological: No symptoms reported. denies: Confusion, Weakness, Headaches Physical Exam - Vital signs Vitals: Temp Pulse Resp BP Pulse Ox 97.9 F 83 18 123/84 100 03/26/17 00:46 03/26/17 00:46 03/26/17 00:46 03/26/17 00:46 03/26/17 00:46 - General General appearance: Appears well, Alert In distress: None - HEENT Head: Normocephalic, Atraumatic Eyes: Normal Conjunctiva: Normal Extraocular movements intact: Yes Eyelashes: Normal Pupils: PERRL Ears: Normal External canal: Normal Tympanic membrane: Normal Nasal: Swelling, Clear rhinorrhea Mouth/Lips: Normal Mucous membranes: Normal Pharynx: Normal. No: Erythema, Exudate, Retropharyngeal abscess Neck: Normal, Supple. No: Lymphadenopathy, Meningismus Notes: Patient does have some mild horizontal nystagmus - Respiratory Respiratory status: No respiratory distress Chest status: Nontender Breath sounds: Normal. No: Rales, Rhonchi, Stridor, Wheezing Chest palpation: Normal - Cardiovascular Rhythm: Regular Heart sounds: S1 appreciated, S2 appreciated Murmur: No - Abdominal Inspection: Normal Distension: No distension Bowel sounds: Normal Tenderness: Nontender - Back Back: Normal, Nontender. No: Vertebra tenderness - Extremities General upper extremity: Normal inspection, Normal ROM General lower extremity: Normal inspection, Normal ROM - Neurological Neuro grossly intact: Yes Cognition: Normal Clement Coma Scale Eye Opening: Spontaneous Clement Coma Scale Verbal: Oriented Clement Coma Scale Motor: Obeys Commands Edgar Coma Scale Total: 15 Speech: Normal Cranial nerves: Normal. No: Facial palsy, Tongue deviation Cerebellar coordination: Normal. No: Gait ataxia - Psychological Associated symptoms: Normal affect, Normal mood - Skin Skin Temperature: Warm Skin Moisture: Dry Skin Color: Normal Course - Re-evaluation Re-evalutation: 03/26/17 03:36 Patient reports that dizzy symptoms have resolved after medication was given. Discussed patient's blood sugar as patient was concerned that her blood sugar was running very high. Patient with symptoms consistent with benign paroxysmal vertigo. - Vital Signs Vital signs: Temp Pulse Resp BP Pulse Ox 97.8 F 78 16 121/75 100 03/26/17 04:23 03/26/17 04:23 03/26/17 04:23 03/26/17 04:23 03/26/17 04:23 - Laboratory Result Diagrams: 03/26/17 02:20 03/26/17 03:06 Laboratory results interpreted by me: 03/26/17 03:06 Creatinine 0.46 L Glucose 159 H Labs- Entire Visit 03/26/17 03/26/1703/26/17 02:20 02:20 02:20 WBC 9.8 RBC 4.66 Hgb 12.6 Hct 38.7 MCV 83 MCH 27.2 MCHC 32.7 RDW 13.2 Plt Count 326 Seg Neutrophils % 75.9 Lymphocytes % 19.1 Monocytes % 3.8 Eosinophils % 0.4 Basophils % 0.8 Absolute Neutrophils 7.4 Absolute Lymphocytes 1.9 Absolute Monocytes 0.4 Absolute Eosinophils 0.0 Absolute Basophils 0.1 Sodium Cancelled Potassium Cancelled Chloride Cancelled Carbon Dioxide Cancelled Anion Gap Cancelled BUN Cancelled Creatinine Cancelled Est GFR ( Amer) Cancelled Est GFR (Non-Af Amer) Cancelled Glucose Cancelled Calcium Cancelled Total Bilirubin Cancelled Direct Bilirubin Cancelled Neonat Total Bilirubin Cancelled Neonat Direct Bilirubin Cancelled Neonat Indirect Bili Cancelled AST Cancelled ALT Cancelled Alkaline Phosphatase Cancelled Total Protein Cancelled Albumin Cancelled Serum HCG, Qual Cancelled 03/26/17 03/26/17 03:06 03:06 WBC RBC Hgb Hct MCV MCH MCHC RDW Plt Count Seg Neutrophils % Lymphocytes % Monocytes % Eosinophils % Basophils % Absolute Neutrophils Absolute Lymphocytes Absolute Monocytes Absolute Eosinophils Absolute Basophils Sodium 138.6 Potassium 4.4 Chloride 102 Carbon Dioxide 26 Anion Gap 11 BUN 17 Creatinine 0.46 L Est GFR ( Amer) > 60 Est GFR (Non-Af Amer) > 60 Glucose 159 H Calcium 10.0 Total Bilirubin 1.0 Direct Bilirubin 0.3 Neonat Total Bilirubin Not Reportable Neonat Direct Bilirubin Not Reportable Neonat Indirect Bili Not Reportable AST 21 ALT 25 Alkaline Phosphatase 72 Total Protein 7.5 Albumin 4.3 Serum HCG, Qual NEGATIVE 03/26/17 03:42 Reviewed patient's labs from previous ER visit - EKG Interpretation by [facility] EKG shows normal: Sinus rhythm Rate: Normal Rhythm: NSR Discharge - Discharge Clinical Impression: Vertigo, Nausea Condition: Stable Disposition: HOME, SELF-CARE Instructions: Antinausea Medication ([facility]), Meclizine ([facility]), Vertigo ([facility]) Additional Instructions: Return immediately for any new or worsening symptoms Followup with your primary care provider, call tomorrow to make a followup appointment Prescriptions: Meclizine HCl [Antivert 25 mg Tablet] 25 mg PO ASDIR PRN #15 tablet PRN Reason: Forms: Return to Work Referrals: MIMI HORN MD [Primary Care Provider] - Follow up tomorrow
[2017-03-26 02:33] LABS: ABSOLUTE BASOPHILS # (AUTO) 0.1 10^3/uL (0.0-0.2); ABSOLUTE LYMPHOCYTES (AUTO) 1.9 10^3/uL (0.5-4.7); ABSOLUTE MONOCYTES (AUTO) 0.4 10^3/uL (0.1-1.4); ABSOLUTE NEUT (AUTO) 7.4 10^3/uL (1.7-8.2); BASOPHILS % (AUTO) 0.8 % (0-2); EOSINOPHILS % (AUTO) 0.4 % (0-6); HEMATOCRIT 38.7 % (36.0-47.0); HEMOGLOBIN 12.6 g/dL (12.0-15.5); LYMPHOCYTES % (AUTO) 19.1 % (13-45); MEAN CORPUSCULAR HEMOGLOBIN 27.2 pg (27.0-33.4); MEAN CORPUSCULAR HGB CONC 32.7 g/dL (32.0-36.0); MEAN CORPUSCULAR VOLUME 83 fl (80-97); MONOCYTES % (AUTO) 3.8 % (3-13); PLATELET COUNT 326 10^3/uL (150-450); RED BLOOD COUNT 4.66 10^6/uL (3.72-5.28); RED CELL DISTRIBUTION WIDTH 13.2 % (11.5-14.0); SEGMENTED NEUTROPHILS % (AUTO) 75.9 % (42-78); TOTAL CELLS COUNTED % (AUTO) 100 %; WHITE BLOOD COUNT 9.8 10^3/uL (4.0-10.5)
[2017-03-26 03:32] LABS: ALANINE AMINOTRANSFERASE 25 U/L (9-52); ALBUMIN 4.3 g/dL (3.5-5.0); ALKALINE PHOSPHATASE 72 U/L (38-126); ANION GAP 11 (5-19); ASPARTATE AMINO TRANSFERASE 21 U/L (14-36); BILIRUBIN,DIRECT 0.3 mg/dL (0.0-0.4); BLOOD UREA NITROGEN 17 mg/dL (7-20); CARBON DIOXIDE 26 mmol/L (22-30); CHLORIDE 102 mmol/L (98-107); GLUCOSE 159 mg/dL (75-110); POTASSIUM 4.4 mmol/L (3.6-5.0); SODIUM 138.6 mmol/L (137-145); TOTAL PROTEIN 7.5 g/dL (6.3-8.2)
[2017-03-26 04:23] VITALS: BP 121/75
--- NOTE | 2017-03-26 07:57 | EKG REPORT ---
SEVERITY:- NORMAL ECG - SINUS RHYTHM : Confirmed by: Yen Chandra MD 26-Mar-2017 07:57:02
== END 2017-03-26 04:29 | disposition home or self-care (01) ==
LOC: ER 00:31
DX: R42 Dizziness and giddiness (principal); R11.0 Nausea
CPT/HCPCS: 93005; 99284; 96361; 96374; 36415; 84703; 85025; 80053; 93010; J2405; J7030

== ENCOUNTER 2017-08-29 18:32 | Emergency (ER) | payer BC ==
[2017-08-29] MEDS ORDERED: NORMAL SALINE 1000 ML 1,000 ML IV ONE (18:50)
[2017-08-29] MEDS ORDERED: KETOROLAC TROMETHAMINE INJ/PF 30 MG/1 ML SDV IV ONE (18:50)
--- NOTE | 2017-08-29 18:58 | ER Document Report ---
ED GI/ - General Mode of Arrival: Medic Information source: Patient TRAVEL OUTSIDE OF THE [place] IN LAST 30 DAYS: No - HPI Patient complains to provider of: Abdominal pain, Diarrhea. No: Vomiting Onset: This afternoon Timing/Duration: Gradual Quality of pain: Cramping Pain Level: 5 Location: Other - Generalized abdomen Vaginal bleeding (Compared to normal period): Similar Associated symptoms: Diarrhea, Lightheaded. denies: Chest pain, Constipation, Nausea, Odor, Urinary hesitancy, Urinary frequency, Urinary retention, Urinary urgency, Vomiting Exacerbated by: Denies Relieved by: Denies Similar symptoms previously: No Recently seen / treated by doctor: No <KAT LORENZO - Last Filed: 08/29/17 20:28> <ROCÍO MOROCHO - Last Filed: 08/29/17 21:25> - General Chief Complaint: Abdominal Pain Stated Complaint: ABDOMINAL PAIN Time Seen by Provider: 08/29/17 18:40 Notes: Patient presents complaining of abdominal cramping that started this afternoon. Patient states that she got diaphoretic and went to the bathroom and had about 4 or 5 episodes of diarrhea. Patient states that she had felt lightheaded after the diarrhea and had a low blood pressure as measured per EMS. Patient denies any nausea vomiting or fever. Patient states she did start her menstrual cycle today and has had some pelvic cramping typical when she has her period. Patient is diabetic but states her blood sugar was 150 today. (KAT LORENZO) - Related Data Allergies/Adverse Reactions: No Known Allergies Allergy (Verified 08/29/17 18:33) Past Medical History - General Information source: Patient - Social History Smoking Status: Never Smoker Frequency of alcohol use: None Drug Abuse: None Occupation: factory Family History: None, Reviewed & Not Pertinent Pulmonary Medical History: Denies: Hx Tuberculosis Neurological Medical History: Reports: Hx Migraine Endocrine Medical History: Reports: Hx Diabetes Mellitus Type 1 Renal/ Medical History: Reports: Hx Ovarian Cysts. Denies: Hx Peritoneal Dialysis Psychiatric Medical History: Denies: Hx Depression Surgical Hx: Negative Past Surgical History: Denies: Hx Pacemaker - Immunizations Immunizations up to date: Yes Hx Diphtheria, Pertussis, Tetanus Vaccination: Yes <KAT LORENZO - Last Filed: 08/29/17 20:28> Review of Systems - Review of Systems Constitutional: No symptoms reported. denies: Fever, Recent illness EENT: No symptoms reported Cardiovascular: Lightheaded. denies: Chest pain, Dizziness Respiratory: No symptoms reported. denies: Cough, Short of breath Gastrointestinal: Abdominal pain, Diarrhea. denies: Nausea, Vomiting Genitourinary: No symptoms reported. denies: Dysuria, Flank pain Female Genitourinary: No symptoms reported Musculoskeletal: No symptoms reported. denies: Back pain Skin: No symptoms reported Hematologic/Lymphatic: No symptoms reported Neurological/Psychological: No symptoms reported. denies: Headaches <KAT LORENZO - Last Filed: 08/29/17 20:28> Physical Exam - General General appearance: Appears well, Alert In distress: None - HEENT Head: Normocephalic, Atraumatic Eyes: Normal Nasal: Normal Mouth/Lips: Normal Mucous membranes: Normal Neck: Normal, Supple. No: Lymphadenopathy - Respiratory Respiratory status: No respiratory distress Chest status: Nontender Breath sounds: Normal. No: Rales, Rhonchi, Stridor, Wheezing Chest palpation: Normal - Cardiovascular Rhythm: Regular Heart sounds: S1 appreciated, S2 appreciated Murmur: No - Abdominal Inspection: Normal Distension: No distension Bowel sounds: Normal Tenderness: Tender - Generalized abdominal tenderness Organomegaly: No organomegaly - Back Back: Normal, Nontender. No: CVA tenderness - Extremities General upper extremity: Normal inspection, Normal ROM General lower extremity: Normal inspection, Normal ROM - Neurological Neuro grossly intact: Yes Cognition: Normal Clement Coma Scale Eye Opening: Spontaneous Clement Coma Scale Verbal: Oriented [place] Coma Scale Motor: Obeys Commands Clement Coma Scale Total: 15 - Psychological Associated symptoms: Normal affect, Normal mood - Skin Skin Temperature: Warm Skin Moisture: Dry Skin Color: Normal <KAT LORENZO - Last Filed: 08/29/17 20:28> - Vital signs Vitals: Temp Pulse BP Pulse Ox 98.2 F 88 102/61 100 08/29/17 18:37 08/29/17 18:37 08/29/17 18:37 08/29/17 18:37 Course <KAT LORENZO - Last Filed: 08/29/17 20:28> - Laboratory Result Diagrams: 08/29/17 20:22 08/29/17 20:22 <ROCÍO MOROCHO - Last Filed: 08/29/17 21:25> - Re-evaluation Re-evalutation: 08/29/17 20:28 Patient reports that abdominal pain is currently resolved at this time. Patient requesting oral fluids at this time. (KAT LORENZO) - Vital Signs Vital signs: Temp Pulse Resp BP Pulse Ox 98.2 F 88 102/61 100 08/29/17 18:37 08/29/17 18:37 08/29/17 18:37 08/29/17 18:37 - Laboratory Laboratory results interpreted by me: 08/29/17 08/29/17 08/29/17 20:20 20:22 20:22 WBC 11.4 H Seg Neutrophils % 83.1 H Lymphocytes % 12.3 L Absolute Neutrophils 9.5 H Creatinine 0.47 L Glucose 179 H POC Glucose 182 H Discharge <KAT LORENZO - Last Filed: 08/29/17 20:28> <ROCÍO MOROCHO - Last Filed: 08/29/17 21:25> - Discharge Clinical Impression: Dysmenorrhea Abdominal pain Qualifiers: Abdominal location: unspecified location Qualified Code(s): R10.9 - Unspecified abdominal pain Diarrhea Qualifiers: Diarrhea type: unspecified type Qualified Code(s): R19.7 - Diarrhea, unspecified Condition: Stable Disposition: HOME, SELF-CARE Instructions: Abdominal Pain ([facility]), Anti-Inflammatory Medication ([facility]), Antispasmodics ([facility]), Diarrhea, Nonspecific ([facility]), Dysmenorrhea ([facility]) Additional Instructions: Return immediately for any new or worsening symptoms Followup with your primary care provider, call tomorrow to make a followup appointment Prescriptions: Dicyclomine HCl [Bentyl 20 mg Tablet] 20 mg PO QID PRN #12 tablet PRN Reason: Naproxen [Naprosyn 250 Nmg Tablet] 1 tab PO BID #14 tablet Forms: Return to Work Referrals: MIMI HORN MD [Primary Care Provider] - 08/31/17
--- NOTE | 2017-08-29 19:40 | RADIOLOGY REPORT (SQ) ---
EXAM DESCRIPTION: U/S NON OB PEL TV W/DOPPLER COMPLETED DATE/TIME: 08/29/2017 7:22 pm REASON FOR STUDY: pelvic pain COMPARISON: None. TECHNIQUE: Dynamic and static grayscale images acquired of the pelvis via transvaginal approach and recorded on PACS. Additional selected color Doppler and spectral images recorded. LIMITATIONS: None. FINDINGS: UTERUS: Contour normal. No mass. ENDOMETRIAL STRIPE: No focal or generalized thickening. No masses. CERVIX: No nabothian cysts. RIGHT OVARY AND DOPPLER: Normal size. No worrisome masses. Normal arterial vascular flow without evid ence for torsion. LEFT OVARY AND DOPPLER: Ovary not visualized. FREE FLUID: None noted. OTHER: No other significant finding. MEASUREMENTS: UTERUS: 7.8 x 4.3 x 5.4 cm ENDOMETRIAL STRIPE: 7 mm RIGHT OVARY: 2.2 x 1.3 x 3.0 cm LEFT OVARY: Not visualized. IMPRESSION: NORMAL TRANSVAGINAL PELVIC ULTRASOUND. TECHNICAL DOCUMENTATION: JOB ID: [id number] [employer]- All Rights Reserved Rev-08/14 Reading location - IP/workstation name: [email or web address]
[2017-08-29] MEDS ORDERED: ACETAMINOPHEN 325 MG TABLET PO ONE (20:22)
[2017-08-29 20:46] LABS: ABSOLUTE LYMPHOCYTES (AUTO) 1.4 10^3/uL (0.5-4.7); ABSOLUTE MONOCYTES (AUTO) 0.4 10^3/uL (0.1-1.4); ABSOLUTE NEUT (AUTO) 9.5 10^3/uL (1.7-8.2); BASOPHILS % (AUTO) 0.4 % (0-2); EOSINOPHILS % (AUTO) 0.4 % (0-6); HEMATOCRIT 36.7 % (36.0-47.0); HEMOGLOBIN 12.3 g/dL (12.0-15.5); LYMPHOCYTES % (AUTO) 12.3 % (13-45); MEAN CORPUSCULAR HEMOGLOBIN 27.9 pg (27.0-33.4); MEAN CORPUSCULAR HGB CONC 33.5 g/dL (32.0-36.0); MEAN CORPUSCULAR VOLUME 83 fl (80-97); MONOCYTES % (AUTO) 3.8 % (3-13); PLATELET COUNT 217 10^3/uL (150-450); RED BLOOD COUNT 4.41 10^6/uL (3.72-5.28); RED CELL DISTRIBUTION WIDTH 12.6 % (11.5-14.0); SEGMENTED NEUTROPHILS % (AUTO) 83.1 % (42-78); TOTAL CELLS COUNTED % (AUTO) 100 %; WHITE BLOOD COUNT 11.4 10^3/uL (4.0-10.5)
[2017-08-29 20:55] LABS: ALANINE AMINOTRANSFERASE 24 U/L (9-52); ALBUMIN 4.3 g/dL (3.5-5.0); ALKALINE PHOSPHATASE 74 U/L (38-126); ANION GAP 10 (5-19); ASPARTATE AMINO TRANSFERASE 17 U/L (14-36); BILIRUBIN,DIRECT 0.2 mg/dL (0.0-0.4); BILIRUBIN,TOTAL 0.6 mg/dL (0.2-1.3); BLOOD UREA NITROGEN 13 mg/dL (7-20); CALCIUM 9.8 mg/dL (8.4-10.2); CARBON DIOXIDE 25 mmol/L (22-30); CHLORIDE 105 mmol/L (98-107); GLUCOSE 179 mg/dL (75-110); POTASSIUM 3.9 mmol/L (3.6-5.0); SODIUM 140.4 mmol/L (137-145); TOTAL PROTEIN 7.7 g/dL (6.3-8.2)
[2017-08-29 22:05] VITALS: BP 110/89
== END 2017-08-29 22:03 | disposition home or self-care (01) ==
LOC: ER 18:32
DX: N94.6 Dysmenorrhea, unspecified (principal); R10.84 Generalized abdominal pain; R19.7 Diarrhea, unspecified; R42 Dizziness and giddiness; E10.9 Type 1 diabetes mellitus without complications
CPT/HCPCS: 99284; 96361; 96374; 36415; 82962; 84703; 85025; 80053; 76830; 93976; J1885; J7030

== ENCOUNTER 2018-04-14 15:42 | Emergency (ER) | payer SELFPAY ==
--- NOTE | 2018-04-14 17:34 | ER Document Report ---
ED Medical Screen (RME) - General Chief Complaint: Headache Stated Complaint: BLOOD SUGAR ISSUE Time Seen by Provider: 04/14/18 17:34 TRAVEL OUTSIDE OF THE [place] IN LAST 30 DAYS: No - Related Data Allergies/Adverse Reactions: insulin glargine [From Lantus U-100 Insulin] Adverse Reaction (Verified 04/14/18 17:20) Past Medical History - Social History Frequency of alcohol use: None Drug Abuse: None Family history: Reviewed & Not Pertinent Pulmonary Medical History: Denies: Hx Tuberculosis Neurological Medical History: Reports: Hx Migraine Endocrine Medical History: Reports: Hx Diabetes Mellitus Type 1 Renal/ Medical History: Reports: Hx Ovarian Cysts. Denies: Hx Peritoneal Dialysis Psychiatric Medical History: Denies: Hx Depression Past Surgical History: Denies: Hx Pacemaker - Immunizations Immunizations up to date: Yes Hx Diphtheria, Pertussis, Tetanus Vaccination: Yes Physical Exam - Vital signs Vitals: Temp Pulse Resp BP Pulse Ox 98.7 F 91 18 122/81 100 04/14/18 16:13 04/14/18 16:13 04/14/18 16:13 04/14/18 16:13 04/14/18 16:13 Course - Vital Signs Vital signs: Temp Pulse Resp BP Pulse Ox 98.7 F 91 18 122/81 100 04/14/18 16:13 04/14/18 16:13 04/14/18 16:13 04/14/18 16:13 04/14/18 16:13 Doctor's Discharge - Discharge Referrals: MIMI HORN MD [Primary Care Provider] - Follow up as needed
[2018-04-14] MEDS ORDERED: IBUPROFEN 600 MG TABLET PO ONE (17:36)
--- NOTE | 2018-04-14 18:19 | ER Document Report ---
ED General - General Chief Complaint: Headache Stated Complaint: BLOOD SUGAR ISSUE Time Seen by Provider: 04/14/18 17:34 Notes: 27-year-old female patient emergency department chief complaint of headache. Patient has a history of type I diabetes. Has been on a new medication (treciba). Thinks the medication is causing her headache. Headache on and off for about a week now. Some blurred vision. Not the worst headache of her life. No fever, chills, sweats. No neck stiffness. 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 Patient does have a history of migraines TRAVEL OUTSIDE OF THE [place] IN LAST 30 DAYS: No - HPI Onset: Last week Onset/Duration: Gradual, Constant Quality of pain: Achy Severity: Mild Pain Level: 1 Associated symptoms: Headache Exacerbated by: Denies Relieved by: Denies - Related Data Allergies/Adverse Reactions: insulin glargine [From Lantus U-100 Insulin] Adverse Reaction (Verified 04/14/18 17:20) Past Medical History - General Information source: Patient - Social History Smoking Status: Never Smoker Frequency of alcohol use: None Drug Abuse: None Lives with: Family Family History: None, Reviewed & Not Pertinent Patient has suicidal ideation: No Patient has homicidal ideation: No Pulmonary Medical History: Denies: Hx Tuberculosis Neurological Medical History: Reports: Hx Migraine Endocrine Medical History: Reports: Hx Diabetes Mellitus Type 1 Renal/ Medical History: Reports: Hx Ovarian Cysts. Denies: Hx Peritoneal Dialysis Psychiatric Medical History: Denies: Hx Depression Past Surgical History: Denies: Hx Pacemaker - Immunizations Immunizations up to date: Yes Hx Diphtheria, Pertussis, Tetanus Vaccination: Yes Review of Systems - Review of Systems Notes: Constitutional: denies: Chills, Diaphoresis, Fever, Malaise, Weakness EENT: denies: Eye discharge, Blurred vision, Tearing, Double vision, Nose con gestion, Nose discharge, Throat swelling, Mouth pain Cardiovascular: denies: Palpitations, Heart racing, Orthopnea, Dyspnea, Chest pain Respiratory: denies: Cough, Hurts to breathe, Wheezing, Shortness of breath Gastrointestinal: denies: Abdominal pain, Diarrhea, Nausea, Vomiting, Black stools, bright red blood in stool Genitourinary: denies: Burning, Dysuria, Discharge, Frequency, Flank pain, Hematuria Musculoskeletal: denies: Joint pain, Joint swelling, Muscle pain, Muscle stiffness, back pain Hematologic/Lymphatic: denies: Anemia, Easy bleeding, Easy bruising, Blood clots Neurological/Psychological: denies: Confusion, Dementia, Depression, Loss of consciousness. Headache Skin: No lesions, no masses, no skin breakdown, no abscesses Physical Exam - Vital signs Vitals: Temp Pulse Resp BP Pulse Ox 98.7 F 91 18 122/81 100 04/14/18 16:13 04/14/18 16:13 04/14/18 16:13 04/14/18 16:13 04/14/18 16:13 Interpretation: Normal - General General appearance: Appears well, Alert - HEENT Head: Normocephalic, Atraumatic Eyes: Normal Pupils: PERRL - Respiratory Respiratory status: No respiratory distress Chest status: Nontender Breath sounds: Normal Chest palpation: Normal - Cardiovascular Rhythm: Regular Heart sounds: Normal auscultation Murmur: No - Abdominal Inspection: Normal Distension: No distension Bowel sounds: Normal Tenderness: Nontender Organomegaly: No organomegaly - Back Back: Normal, Nontender - Extremities General upper extremity: Normal inspection, Nontender, Normal color, Normal ROM, Normal temperature General lower extremity: Normal inspection, Nontender, Normal color, Normal ROM, Normal temperature, Normal weight bearing. No: Cierra's sign - Neurological Neuro grossly intact: Yes Cognition: Normal Orientation: AAOx4 Clement Coma Scale Eye Opening: Spontaneous Clement Coma Scale Verbal: Oriented Clement Coma Scale Motor: Obeys Commands Bond Coma Scale Total: 15 Speech: Normal Cranial nerves: Normal Cerebellar coordination: Normal Motor strength normal: LUE, RUE, LLE, RLE Additional motor exam normals: Equal fittings finisher. No: Pronator drift Sensory: Normal - Psychological Associated symptoms: Normal affect, Normal mood - Skin Skin Temperature: Warm Skin Moisture: Dry Skin Color: Normal Course - Re-evaluation Re-evalutation: 04/14/18 20:06 This is a well-appearing female patient in no acute distress who is convinced that her new diabetes medication is giving her headache. She does state that her blood sugars have been very well controlled even though her hemoglobin A1c is 11. I have advised her to continue with the new medication until told to do otherwise by her primary care doctor or supervisor public message service. Due to the fact that she was having headache and these new symptoms I did add thyroid function studies on. 04/14/18 20:29 Laboratory 04/14/18 04/14/18 04/14/18 18:40 18:40 18:40 WBC 8.6 RBC 4.71 Hgb 13.0 Hct 39.0 MCV 83 MCH 27.5 MCHC 33.2 RDW 13.3 Plt Count 252 Seg Neutrophils % 67.5 Lymphocytes % 26.9 Monocytes % 3.5 Eosinophils % 1.4 Basophils % 0.7 Absolute Neutrophils 5.8 Absolute Lymphocytes 2.3 Absolute Monocytes 0.3 Absolute Eosinophils 0.1 Absolute Basophils 0.1 Sodium 135.6 L Potassium 4.2 Chloride 102 Carbon Dioxide 25 Anion Gap 9 BUN 14 Creatinine 0.44 L Est GFR ( Amer) > 60 Est GFR (Non-Af Amer) > 60 Glucose 284 H Hemoglobin A1c % 11.1 H Calcium 9.4 Total Bilirubin 0.8 Direct Bilirubin 0.2 Neonat Total Bilirubin Not Reportable Neonat Direct Bilirubin Not Reportable Neonat Indirect Bili Not Reportable AST 21 ALT 17 Alkaline Phosphatase 78 Total Protein 7.8 Albumin 4.6 TSH Free T4 Free T3 pg/mL 04/14/18 18:40 WBC RBC Hgb Hct MCV MCH MCHC RDW Plt Count Seg Neutrophils % Lymphocytes % Monocytes % Eosinophils % Basophils % Absolute Neutrophils Absolute Lymphocytes Absolute Monocytes Absolute Eosinophils Absolute Basophils Sodium Potassium Chloride Carbon Dioxide Anion Gap BUN Creatinine Est GFR ( Amer) Est GFR (Non-Af Amer) Glucose Hemoglobin A1c % Calcium Total Bilirubin Direct Bilirubin Neonat Total Bilirubin Neonat Direct Bilirubin Neonat Indirect Bili AST ALT Alkaline Phosphatase Total Protein Albumin TSH 1.53 Free T4 1.22 Free T3 pg/mL 3.39 Patient has a hemoglobin A1c is 11. Thyroid functions look unremarkable. Known history of migraines. Patient is getting frustrated because she still has a mild headache. I will advise her to continue with anti-inflammatory medications at home. If symptoms get worse she can certainly return - Vital Signs Vital signs: Temp Pulse Resp BP Pulse Ox 98.7 F 91 18 122/81 100 04/14/18 16:13 04/14/18 16:13 04/14/18 16:13 04/14/18 16:13 04/14/18 16:13 - Laboratory Result Diagrams: 04/14/18 18:40 04/14/18 18:40 Laboratory results interpreted by me: 04/14/18 04/14/18 18:40 18:40 Sodium 135.6 L Creatinine 0.44 L Glucose 284 H Hemoglobin A1c % 11.1 H Discharge - Discharge Clinical Impression: Migraine Qualifiers: Migraine type: ophthalmoplegic Intractability: not intractable Qualified Code(s): G43.B0 - Ophthalmoplegic migraine, not intractable Condition: Good Disposition: HOME, SELF-CARE Instructions: Headache ([facility]), Diabetes ([facility]) Additional Instructions: Continue to use her medications as prescribed. I do not recommend stopping your new diabetes medications without consultation with specialist. Your hemoglobin A1c is still grossly elevated at over 11. Please check your blood sugar regularly and adjust accordingly based on your sliding scale. I recommend taking ibuprofen at least 3 times a day over the next couple of days to see if your headache and symptoms were resolved. Due to the fact that her symptoms have been present for several weeks now it is unlikely that there is a significant pathology. More than likely this represents an intractable migraine. You could have some ocular symptoms or ocular strain due to some vision issues. It may be important to follow-up with a switch operator to have your vision rechecked and your glasses adjusted if needed. In the event that you develop fever, neck stiffness, weakness on one side or the other, extremely elevated or extremely low blood sugars or for any other concerns you may return for repeat evaluation. Prescriptions: Ibuprofen [Motrin 600 Mg Tablet] 600 mg PO TID 5 Days #15 tablet Ondansetron [Zofran Odt 4 mg Tablet] 1 - 2 tab PO Q4H PRN #15 tab.rapdis PRN Reason: For Nausea/Vomiting Forms: Return to Work Referrals: MIMI HORN MD [Primary Care Provider] - Follow up in 3-5 days
[2018-04-14 18:54] LABS: ABSOLUTE BASOPHILS # (AUTO) 0.1 10^3/uL (0.0-0.2); ABSOLUTE EOSINOPHILS # (AUTO) 0.1 10^3/uL (0.0-0.6); ABSOLUTE LYMPHOCYTES (AUTO) 2.3 10^3/uL (0.5-4.7); ABSOLUTE MONOCYTES (AUTO) 0.3 10^3/uL (0.1-1.4); ABSOLUTE NEUT (AUTO) 5.8 10^3/uL (1.7-8.2); BASOPHILS % (AUTO) 0.7 % (0-2); EOSINOPHILS % (AUTO) 1.4 % (0-6); LYMPHOCYTES % (AUTO) 26.9 % (13-45); MEAN CORPUSCULAR HEMOGLOBIN 27.5 pg (27.0-33.4); MEAN CORPUSCULAR HGB CONC 33.2 g/dL (32.0-36.0); MEAN CORPUSCULAR VOLUME 83 fl (80-97); MONOCYTES % (AUTO) 3.5 % (3-13); PLATELET COUNT 252 10^3/uL (150-450); RED BLOOD COUNT 4.71 10^6/uL (3.72-5.28); RED CELL DISTRIBUTION WIDTH 13.3 % (11.5-14.0); SEGMENTED NEUTROPHILS % (AUTO) 67.5 % (42-78); TOTAL CELLS COUNTED % (AUTO) 100 %; WHITE BLOOD COUNT 8.6 10^3/uL (4.0-10.5)
[2018-04-14 19:23] LABS: ALANINE AMINOTRANSFERASE 17 U/L (9-52); ALBUMIN 4.6 g/dL (3.5-5.0); ALKALINE PHOSPHATASE 78 U/L (38-126); ANION GAP 9 (5-19); ASPARTATE AMINO TRANSFERASE 21 U/L (14-36); BILIRUBIN,DIRECT 0.2 mg/dL (0.0-0.4); BILIRUBIN,TOTAL 0.8 mg/dL (0.2-1.3); BLOOD UREA NITROGEN 14 mg/dL (7-20); CALCIUM 9.4 mg/dL (8.4-10.2); CARBON DIOXIDE 25 mmol/L (22-30); CHLORIDE 102 mmol/L (98-107); GLUCOSE 284 mg/dL (75-110); POTASSIUM 4.2 mmol/L (3.6-5.0); SODIUM 135.6 mmol/L (137-145); TOTAL PROTEIN 7.8 g/dL (6.3-8.2)
[2018-04-14 19:41] LABS: FREE T3 3.39 pg/mL (2.77-5.27); FREE T4 (FREE THYROXINE) 1.22 ng/dL (0.78-2.19)
[2018-04-14 19:54] LABS: THYROID STIMULATING HORMONE 1.53 uIU/mL (0.47-4.68)
[2018-04-14 21:04] LABS: APPEARANCE,URINE SLIGHTLY-CLOUDY; BILIRUBIN,URINE NEGATIVE (NEGATIVE); COLOR,URINE YELLOW; GLUCOSE, URINE >=500 mg/dL (NEGATIVE); KETONES,URINE NEGATIVE (NEGATIVE); LEUKOCYTE ESTERASE,URINE NEGATIVE (NEGATIVE); NITRITE,URINE NEGATIVE (NEGATIVE); PROTEIN,URINE NEGATIVE (NEGATIVE); URINE SPECIFIC GRAVITY 1.044; UROBILINOGEN,URINE NEGATIVE mg/dL (<2.0)
[2018-04-14 21:05] VITALS: BP 127/72
[2018-04-14 23:57] LABS: CHLAM PCR NOT DETECTED (NOT DETECT); GON PCR NOT DETECTED (NOT DETECT)
== END 2018-04-14 21:06 | disposition home or self-care (01) ==
LOC: ER 15:42
DX: G43.B0 Ophthalmoplegic migraine, not intractable (principal); E10.9 Type 1 diabetes mellitus without complications
CPT/HCPCS: 36415; 80053; 81001; 81025; 83036; 84439; 84443; 84481; 85025; 87491; 87591; 99284

== ENCOUNTER 2018-05-10 10:09 | Emergency (ER) | payer SELFPAY ==
[2018-05-10 10:15] VITALS: BP 115/66
[2018-05-10] MEDS ORDERED: ONDANSETRON HCL INJ/PF 4 MG/2 ML SDV IV ONE (10:50)
[2018-05-10] MEDS ORDERED: NORMAL SALINE 1000 ML 1,000 ML IV ONE ×2 (10:50→13:58)
--- NOTE | 2018-05-10 10:52 | ER Document Report ---
ED Medical Screen (RME) - General Chief Complaint: Abdominal Pain Stated Complaint: ABDOMINAL PAIN Time Seen by Provider: 05/10/18 10:38 Mode of Arrival: Wheelchair Information source: Patient Notes: 27-year-old female with a history of diabetes presents emergency department with complaints of nausea, vomiting, suprapubic abdominal pain, vaginal itching that started this morning. Patient states that she has a history of ovarian cysts and just started her menstrual cycle today. She states that the pain is likely from the menstrual cycle. She describes the pain as a cramping sensation. No radiation. No alleviating or exacerbating factors. Patient did not take any medication prior to arrival. She denies any surgical history on her abdomen. Patient states that she is on Levemir and NovoLog. EMS checked her blood sugar and found it to be 304. I have greeted and performed a rapid initial assessment of this patient. A comprehensive ED assessment and evaluation of the patient, analysis of test results and completion of the medical decision making process will be conducted by additional ED providers. PHYSICAL EXAMINATION: GENERAL: Well-appearing, well-nourished and in no acute distress. HEAD: Atraumatic, normocephalic. EYES: Pupils equal round extraocular movements intact, conjunctiva are normal. ENT: Nares patent NECK: Normal range of motion LUNGS: No respiratory distress Musculoskeletal: Normal range of motion NEUROLOGICAL: Normal speech PSYCH: Normal mood, normal affect. SKIN: Warm, Dry, normal turgor, no rashes or lesions noted. TRAVEL OUTSIDE OF THE [place] IN LAST 30 DAYS: No - Related Data Allergies/Adverse Reactions: insulin glargine [From Lantus U-100 Insulin] Adverse Reaction (Verified 04/14/18 17:20) Past Medical History - Social History Chew tobacco use (# tins/day): No Frequency of alcohol use: None Drug Abuse: None Family history: Reviewed & Not Pertinent Pulmonary Medical History: Denies: Hx Tuberculosis Neurological Medical History: Reports: Hx Migraine Endocrine Medical History: Reports: Hx Diabetes Mellitus Type 1 Renal/ Medical History: Reports: Hx Ovarian Cysts. Denies: Hx Peritoneal Dialysis Psychiatric Medical History: Denies: Hx Depression Past Surgical History: Denies: Hx Pacemaker - Immunizations Immunizations up to date: Yes Hx Diphtheria, Pertussis, Tetanus Vaccination: Yes Physical Exam - Vital signs Vitals: Temp Pulse Resp BP Pulse Ox 96.3 F L 83 16 115/66 100 05/10/18 10:13 05/10/18 10:13 05/10/18 10:13 05/10/18 10:13 05/10/18 10:13 Course - Vital Signs Vital signs: Temp Pulse Resp BP Pulse Ox 96.3 F L 83 16 115/66 100 05/10/18 10:13 05/10/18 10:13 05/10/18 10:13 05/10/18 10:13 05/10/18 10:13
[2018-05-10] MEDS ORDERED: KETOROLAC TROMETHAMINE INJ/PF 30 MG/1 ML SDV IV ONE (11:30)
--- NOTE | 2018-05-10 11:31 | ER Document Report ---
ED General - General Chief Complaint: Abdominal Pain Stated Complaint: ABDOMINAL PAIN Time Seen by Provider: 05/10/18 10:38 Mode of Arrival: Wheelchair TRAVEL OUTSIDE OF THE [place] IN LAST 30 DAYS: No - HPI Notes: Patient is a 27-year-old female that presents to the emergency department for chief complaint of abdominal pain nausea and vomiting. Patient reports lower abdominal pain bilaterally that is crampy in nature. The pain is intermittent without aggravating or relieving factors. There is no radiation of her pain. She did try Tylenol prior to coming to the ED that did not change her symptoms. She did start her menstrual cycle today which she is on schedule for her. She states every third or fourth cycle she has a severe menses and this feels similar. Patient does report history of ruptured ovarian cyst in the past and states this feels similar. She became concerned when she vomited stating that she usually only vomits when she is in DKA. She did have her insulin switched a week and a half ago and has been trying to get better control of her glucose. She states it has been running around 270 at home. EMS reported blood glucose greater than 300. Patient did take her sliding scale insulin at 11 AM while in the emergency room without consultation of myself or nursing staff. She reports nausea with one episode of emesis today. She denies any diarrhea, fevers, chills, chest pain and shortness of breath. She does states she has a yeast infection currently with some vaginal itching which she gets when her glucose is elevated. She has been using [id number] yeast medication for that and denies any concern for other STDs or pelvic infections. Past Medical History: Diabetes Past Surgical History: Negative Social History: Denies drugs alcohol and tobacco Family History: Reviewed and noncontributory for presenting illness Allergies: Reviewed, see documented allergy list. REVIEW OF SYSTEMS: CONSTITUTIONAL : No fever No chills No diaphoresis No recent illness EENT: No vision changes No congestion No sore throat CARDIOVASCULAR: No chest pain No palpitations RESPIRATORY: No shortness of breath No cough No difficulty breathing GASTROINTESTINAL: abdominal pain nausea vomiting No diarrhea GENITOURINARY: No dysuria Vaginal itching No hematuria No difficulty urinating MUSCULOSKELETAL: No back pain No leg pain No arm pain SKIN: No rashes No lesions LYMPHATIC: No swollen, enlarged glands. NEUROLOGICAL: No lightheadedness No headache No weakness No paresthesias PSYCHIATRIC: No anxiety No depression PHYSICAL EXAMINATION: Vital signs reviewed, nursing noted reviewed. GENERAL: Well-appearing, well-nourished and in no acute distress. HEAD: Atraumatic, normocephalic. EYES: Eyes appear normal, extraocular movements intact, sclera anicteric, conjunctiva are normal. ENT: nares patent, oropharynx clear without exudates. Moist mucous membranes. NECK: Normal range of motion, supple without lymphadenopathy LUNGS: Breath sounds clear to auscultation bilaterally and equal. No wheezes rales or rhonchi. HEART: Regular rate and rhythm without murmurs ABDOMEN: Soft, mild suprapubic tenderness normoactive bowel sounds. No rebound, guarding, or rigidity. No masses appreciated. EXTREMITIES: Nontender, good range of motion, no pitting or edema. NEUROLOGICAL: No focal neurological deficits. Moves all extremities spontaneously Motor and sensory grossly intact on exam. PSYCH: Normal mood, normal affect. SKIN: Warm, Dry, normal turgor, no rashes or lesions noted on exposed skin - Related Data Allergies/Adverse Reactions: insulin glargine [From Lantus U-100 Insulin] Adverse Reaction (Verified 04/14/18 17:20) Past Medical History - General Information source: Patient - Social History Smoking Status: Never Smoker Chew tobacco use (# tins/day): No Frequency of alcohol use: None Drug Abuse: None Family History: None, Reviewed & Not Pertinent Patient has suicidal ideation: No Patient has homicidal ideation: No Pulmonary Medical History: Denies: Hx Tuberculosis Neurological Medical History: Reports: Hx Migraine Endocrine Medical History: Reports: Hx Diabetes Mellitus Type 1 Renal/ Medical History: Reports: Hx Ovarian Cysts. Denies: Hx Peritoneal Di alysis Psychiatric Medical History: Denies: Hx Depression Past Surgical History: Denies: Hx Pacemaker - Immunizations Immunizations up to date: Yes Hx Diphtheria, Pertussis, Tetanus Vaccination: Yes Physical Exam - Vital signs Vitals: Temp Pulse Resp BP Pulse Ox 96.3 F L 83 16 115/66 100 05/10/18 10:13 05/10/18 10:13 05/10/18 10:13 05/10/18 10:13 05/10/18 10:13 Course - Re-evaluation Re-evalutation: 05/10/18 11:30 Vitals reviewed. Nursing notes reviewed. Patient given IV hydration, Zofran and Toradol for symptomatic management initial plan of care. Glucose was greater than 400 and repeat done shortly after was declining. Patient took her home insulin without consulting myself or any other medical staff in the ED about 10 minutes prior to her initial Accu-Chek. 05/10/18 14:05 Patient's blood sugar has continued to decrease and is in the low 300s now. She has no anion gap. VBG shows a very mild acidosis. On reevaluation patient is asymptomatic. She has not had any vomiting in the emergency room. She was offered admission for hydration and monitoring of her hyperglycemia. Patient would like to try outpatient management first. She has insulin at home who will continue to check her glucose and use her sliding scale insulins. She will be given a second liter of normal saline prior to being discharged. Patient's yeast infection will be treated with Diflucan. She will return to the emergency room if her symptoms recur or if her blood glucose at home continues to increase. She is asymptomatic at time of discharge. Laboratory 05/10/18 05/10/18 05/10/18 11:02 12:27 12:27 WBC 9.2 RBC 4.57 Hgb 12.6 Hct 37.8 MCV 83 MCH 27.5 MCHC 33.2 RDW 13.9 Plt Count 212 Seg Neutrophils % 89.9 H Lymphocytes % 7.7 L Monocytes % 2.1 L Eosinophils % 0.1 Basophils % 0.2 Absolute Neutrophils 8.3 H Absolute Lymphocytes 0.7 Absolute Monocytes 0.2 Absolute Eosinophils 0.0 Absolute Basophils 0.0 VBG pH VBG pCO2 VBG HCO3 VBG Base Excess Sodium 139.8 Potassium 4.1 Chloride 106 Carbon Dioxide 21 L Anion Gap 13 BUN 13 Creatinine 0.49 L Est GFR ( Amer) > 60 Est GFR (Non-Af Amer) > 60 Glucose 320 H Calcium 9.1 Total Bilirubin 0.6 Direct Bilirubin 0.2 Neonat Total Bilirubin Not Reportable Neonat Direct Bilirubin Not Reportable Neonat Indirect Bili Not Reportable AST 16 ALT 13 Alkaline Phosphatase 82 Total Protein 7.7 Albumin 4.5 Lipase 74.5 Urine Color YELLOW Urine Appearance SLIGHTLY-CLOUDY Urine pH 5.0 Ur Specific [place] 1.042 Urine Protein 30 H Urine Glucose (UA) >=500 H Urine Ketones 80 H Urine Blood LARGE H Urine Nitrite NEGATIVE Urine Bilirubin NEGATIVE Urine Urobilinogen NEGATIVE Ur Leukocyte Esterase NEGATIVE Urine WBC (Auto) >182 Urine RBC (Auto) 103 Squamous Epi Cells Auto 3 Urine Mucus (Auto) RARE Urine Ascorbic Acid NEGATIVE Urine HCG, Qual NEGATIVE 05/10/18 12:27 WBC RBC Hgb Hct MCV MCH MCHC RDW Plt Count Seg Neutrophils % Lymphocytes % Monocytes % Eosinophils % Basophils % Absolute Neutrophils Absolute Lymphocytes Absolute Monocytes Absolute Eosinophils Absolute Basophils VBG pH 7.26 L VBG pCO2 47.3 VBG HCO3 20.6 VBG Base Excess -6.6 Sodium Potassium Chloride Carbon Dioxide Anion Gap BUN Creatinine Est GFR ( Amer) Est GFR (Non-Af Amer) Glucose Calcium Total Bilirubin Direct Bilirubin Neonat Total Bilirubin Neonat Direct Bilirubin Neonat Indirect Bili AST ALT Alkaline Phosphatase Total Protein Albumin Lipase Urine Color Urine Appearance Urine pH Ur Specific [place] Urine Protein Urine Glucose (UA) Urine Ketones Urine Blood Urine Nitrite Urine Bilirubin Urine Urobilinogen Ur Leukocyte Esterase Urine WBC (Auto) Urine RBC (Auto) Squamous Epi Cells Auto Urine Mucus (Auto) Urine Ascorbic Acid Urine HCG, Qual - Vital Signs Vital signs: Temp Pulse Resp BP Pulse Ox 97.1 F 83 16 115/66 100 05/10/18 10:55 05/10/18 10:13 05/10/18 10:13 05/10/18 10:13 05/10/18 10:13 - Laboratory Result Diagrams: 05/10/18 12:27 05/10/18 12:27 Laboratory results interpreted by me: 05/10/18 05/10/18 05/10/18 11:02 12:27 12:27 Seg Neutrophils % 89.9 H Lymphocytes % 7.7 L Monocytes % 2.1 L Absolute Neutrophils 8.3 H VBG pH Carbon Dioxide 21 L Creatinine 0.49 L Glucose 320 H Urine Protein 30 H Urine Glucose (UA) >=500 H Urine Ketones 80 H Urine Blood LARGE H 05/10/18 12:27 Seg Neutrophils % Lymphocytes % Monocytes % Absolute Neutrophils VBG pH 7.26 L Carbon Dioxide Creatinine Glucose Urine Protein Urine Glucose (UA) Urine Ketones Urine Blood Discharge - Discharge Clinical Impression: Yeast vaginitis, Hyperglycemia due to type 1 diabetes mellitus Vomiting Qualifiers: Vomiting type: unspecified Vomiting Intractability: non-intractable Nausea presence: with nausea Qualified Code(s): R11.2 - Nausea with vomiting, unspecified Condition: Stable Disposition: HOME, SELF-CARE Instructions: Vaginal Yeast Infection ([facility]), Hyperglycemia ([facility]) Additional Instructions: Please return to the emergency department if you have any worsening, or concern of your symptoms. Please return to the emergency department if you develop chest pain, difficulty breathing, severe abdominal pain, or ongoing vomiting. Please follow-up with your primary care physician in 2-3 days and any other r ecommended physicians. If prescribed, take all medications as directed. If you have any questions or concerns do not hesitate to return the emergency department for evaluation. Continue to monitor your glucose at home and return to the emergency room if it begins to increase despite your home insulin treatment Return to the emergency room if you develop any increased nausea vomiting or abdominal pains Stay well hydrated by increasing your intake of water If you are still having symptoms of vaginal yeast infection take the second dose of Diflucan in 1 week Prescriptions: Fluconazole [Diflucan] 150 mg PO ONCE PRN #1 tablet PRN Reason: Referrals: [facility] [Provider Group] - Follow up in 3-5 days
[2018-05-10 11:55] LABS: APPEARANCE,URINE SLIGHTLY-CLOUDY; BILIRUBIN,URINE NEGATIVE (NEGATIVE); COLOR,URINE YELLOW; GLUCOSE, URINE >=500 mg/dL (NEGATIVE); KETONES,URINE 80 mg/dL (NEGATIVE); LEUKOCYTE ESTERASE,URINE NEGATIVE (NEGATIVE); NITRITE,URINE NEGATIVE (NEGATIVE); PROTEIN,URINE 30 mg/dL (NEGATIVE); URINE SPECIFIC GRAVITY 1.042; UROBILINOGEN,URINE NEGATIVE mg/dL (<2.0)
[2018-05-10 12:55] LABS: ABSOLUTE LYMPHOCYTES (AUTO) 0.7 10^3/uL (0.5-4.7); ABSOLUTE MONOCYTES (AUTO) 0.2 10^3/uL (0.1-1.4); ABSOLUTE NEUT (AUTO) 8.3 10^3/uL (1.7-8.2); BASOPHILS % (AUTO) 0.2 % (0-2); EOSINOPHILS % (AUTO) 0.1 % (0-6); HEMATOCRIT 37.8 % (36.0-47.0); HEMOGLOBIN 12.6 g/dL (12.0-15.5); LYMPHOCYTES % (AUTO) 7.7 % (13-45); MEAN CORPUSCULAR HEMOGLOBIN 27.5 pg (27.0-33.4); MEAN CORPUSCULAR HGB CONC 33.2 g/dL (32.0-36.0); MEAN CORPUSCULAR VOLUME 83 fl (80-97); MONOCYTES % (AUTO) 2.1 % (3-13); PLATELET COUNT 212 10^3/uL (150-450); RED BLOOD COUNT 4.57 10^6/uL (3.72-5.28); RED CELL DISTRIBUTION WIDTH 13.9 % (11.5-14.0); SEGMENTED NEUTROPHILS % (AUTO) 89.9 % (42-78); TOTAL CELLS COUNTED % (AUTO) 100 %; WHITE BLOOD COUNT 9.2 10^3/uL (4.0-10.5)
[2018-05-10 12:59] LABS: VENOUS BLOOD BASE EXCESS -6.6 mmol/L; VENOUS BLOOD HCO3 20.6 mmol/L (20-32); VENOUS BLOOD PCO2 47.3 mmHg (35-63); VENOUS BLOOD PH 7.26 (7.30-7.42)
[2018-05-10 13:16] LABS: ALANINE AMINOTRANSFERASE 13 U/L (9-52); ALBUMIN 4.5 g/dL (3.5-5.0); ALKALINE PHOSPHATASE 82 U/L (38-126); ANION GAP 13 (5-19); ASPARTATE AMINO TRANSFERASE 16 U/L (14-36); BILIRUBIN,DIRECT 0.2 mg/dL (0.0-0.4); BILIRUBIN,TOTAL 0.6 mg/dL (0.2-1.3); BLOOD UREA NITROGEN 13 mg/dL (7-20); CALCIUM 9.1 mg/dL (8.4-10.2); CARBON DIOXIDE 21 mmol/L (22-30); CHLORIDE 106 mmol/L (98-107); GLUCOSE 320 mg/dL (75-110); LIPASE 74.5 U/L (23-300); POTASSIUM 4.1 mmol/L (3.6-5.0); SODIUM 139.8 mmol/L (137-145); TOTAL PROTEIN 7.7 g/dL (6.3-8.2)
[2018-05-10] MEDS ORDERED: FLUCONAZOLE 100 MG TABLET PO ONE (13:59)
== END 2018-05-10 14:55 | disposition home or self-care (01) ==
LOC: ER 10:09
DX: B37.3 Candidiasis of vulva and vagina (principal); E10.65 Type 1 diabetes mellitus with hyperglycemia; R11.2 Nausea with vomiting, unspecified; R10.9 Unspecified abdominal pain; R10.31 Right lower quadrant pain; R10.32 Left lower quadrant pain; R11.10 Vomiting, unspecified; Z79.4 Long term (current) use of insulin
CPT/HCPCS: 99284; 96361; 96374; 36415; 87086; 82962; 83690; 85025; 81025; 87088; 80053; 81001; 82803; J2405; J7030

== ENCOUNTER → 2018-05-26 | Outpatient (CLI) | payer OTHER ==
[2018-05-26 15:49] LABS: ABSOLUTE BASOPHILS # (AUTO) 0.1 10^3/uL (0.0-0.2); ABSOLUTE EOSINOPHILS # (AUTO) 0.1 10^3/uL (0.0-0.6); ABSOLUTE MONOCYTES (AUTO) 0.4 10^3/uL (0.1-1.4); ABSOLUTE NEUT (AUTO) 3.3 10^3/uL (1.7-8.2); EOSINOPHILS % (AUTO) 1.4 % (0-6); HEMATOCRIT 33.8 % (36.0-47.0); HEMOGLOBIN 11.5 g/dL (12.0-15.5); LYMPHOCYTES % (AUTO) 34.6 % (13-45); MEAN CORPUSCULAR HEMOGLOBIN 27.8 pg (27.0-33.4); MEAN CORPUSCULAR VOLUME 82 fl (80-97); MONOCYTES % (AUTO) 6.3 % (3-13); PLATELET COUNT 262 10^3/uL (150-450); RED BLOOD COUNT 4.14 10^6/uL (3.72-5.28); RED CELL DISTRIBUTION WIDTH 13.1 % (11.5-14.0); SEGMENTED NEUTROPHILS % (AUTO) 56.7 % (42-78); TOTAL CELLS COUNTED % (AUTO) 100 %; WHITE BLOOD COUNT 5.8 10^3/uL (4.0-10.5)
[2018-05-26 16:01] LABS: ALANINE AMINOTRANSFERASE 23 U/L (9-52); ALBUMIN 4.1 g/dL (3.5-5.0); ALKALINE PHOSPHATASE 67 U/L (38-126); ANION GAP 9 (5-19); ASPARTATE AMINO TRANSFERASE 18 U/L (14-36); BILIRUBIN,DIRECT 0.1 mg/dL (0.0-0.4); BILIRUBIN,TOTAL 0.5 mg/dL (0.2-1.3); BLOOD UREA NITROGEN 11 mg/dL (7-20); CALCIUM 9.8 mg/dL (8.4-10.2); CARBON DIOXIDE 27 mmol/L (22-30); CHLORIDE 101 mmol/L (98-107); GLUCOSE 235 mg/dL (75-110); POTASSIUM 4.3 mmol/L (3.6-5.0); SODIUM 136.7 mmol/L (137-145); TOTAL PROTEIN 7.3 g/dL (6.3-8.2)
== END ==
LOC: CCC 15:02
DX: E11.8 Type 2 diabetes mellitus with unspecified complications (principal)
CPT/HCPCS: 36415; 80053; 83036; 85025

== ENCOUNTER 2018-07-17 10:35 | Emergency (ER) | payer SELFPAY ==
[2018-07-17 10:45] VITALS: BP 118/64
[2018-07-17] MEDS ORDERED: NORMAL SALINE 1000 ML 1,000 ML IV ONE ×2 (10:50→12:24)
[2018-07-17] MEDS ORDERED: ONDANSETRON HCL INJ/PF 4 MG/2 ML SDV IV ONE (10:51)
--- NOTE | 2018-07-17 10:53 | ER Document Report ---
ED Medical Screen (RME) - General Chief Complaint: Nausea Stated Complaint: NAUSEA Time Seen by Provider: 07/17/18 10:45 Primary Care Provider: [facility] [Primary Care Provider] - Follow up as needed Mode of Arrival: Medic Information source: Patient Notes: 27-year-old female presented to ED via EMS for nausea feeling like her sugar was too high. EMS came to her work blood sugar was 338 they have given her fluids in EMS. She states she got up this morning did not check her sugar went to work and when she started feeling sick she took her Levemir. She states she had still not taken her sugar. She is a type I diabetic insulin-dependent. She also has a history of ovarian cyst. She states she is on Levemir and NovoLog. She states she works at [employer]. Patient is alert oriented answering all questions appropriately respirations regular and unlabored. I have greeted and performed a rapid initial assessment of this patient. A comprehensive ED assessment and evaluation of the patient, analysis of test results and completion of medical decision making process will be conducted by an additional ED providers. TRAVEL OUTSIDE OF THE [place] IN LAST 30 DAYS: No - Related Data Allergies/Adverse Reactions: insulin glargine [From Lantus U-100 Insulin] Adverse Reaction (Verified 07/17/18 10:37) Past Medical History - Social History Family history: Reviewed & Not Pertinent Pulmonary Medical History: Denies: Hx Tuberculosis Neurological Medical History: Reports: Hx Migraine Endocrine Medical History: Reports: Hx Diabetes Mellitus Type 1 Renal/ Medical History: Reports: Hx Ovarian Cysts. Denies: Hx Peritoneal Dialysis Psychiatric Medical History: Denies: Hx Depression Past Surgical History: Denies: Hx Pacemaker - Immunizations Immunizations up to date: Yes Hx Diphtheria, Pertussis, Tetanus Vaccination: Yes Physical Exam - Vital signs Vitals: Temp Pulse Resp BP Pulse Ox 97.6 F 92 16 118/64 99 07/17/18 10:43 07/17/18 10:43 07/17/18 10:43 07/17/18 10:43 07/17/18 10:43 Course - Vital Signs Vital signs: Temp Pulse Resp BP Pulse Ox 97.6 F 92 16 118/64 99 07/17/18 10:43 07/17/18 10:43 07/17/18 10:43 07/17/18 10:43 07/17/18 10:43 Doctor's Discharge - Discharge Referrals: [facility] [Primary Care Provider] - Follow up as needed
[2018-07-17 12:12] LABS: ABSOLUTE BASOPHILS # (AUTO) 0.1 10^3/uL (0.0-0.2); ABSOLUTE LYMPHOCYTES (AUTO) 1.3 10^3/uL (0.5-4.7); ABSOLUTE MONOCYTES (AUTO) 0.2 10^3/uL (0.1-1.4); ABSOLUTE NEUT (AUTO) 8.4 10^3/uL (1.7-8.2); BASOPHILS % (AUTO) 0.6 % (0-2); EOSINOPHILS % (AUTO) 0.4 % (0-6); HEMATOCRIT 36.6 % (36.0-47.0); HEMOGLOBIN 12.1 g/dL (12.0-15.5); LYMPHOCYTES % (AUTO) 13.1 % (13-45); MEAN CORPUSCULAR HEMOGLOBIN 27.9 pg (27.0-33.4); MEAN CORPUSCULAR HGB CONC 33.1 g/dL (32.0-36.0); MEAN CORPUSCULAR VOLUME 84 fl (80-97); MONOCYTES % (AUTO) 2.2 % (3-13); PLATELET COUNT 242 10^3/uL (150-450); RED BLOOD COUNT 4.36 10^6/uL (3.72-5.28); RED CELL DISTRIBUTION WIDTH 12.7 % (11.5-14.0); SEGMENTED NEUTROPHILS % (AUTO) 83.7 % (42-78); TOTAL CELLS COUNTED % (AUTO) 100 %; WHITE BLOOD COUNT 10.1 10^3/uL (4.0-10.5)
[2018-07-17 12:14] LABS: AMORPHOUS SEDIMENT,URINE TRACE /HPF; APPEARANCE,URINE CLOUDY; BILIRUBIN,URINE NEGATIVE (NEGATIVE); COLOR,URINE YELLOW; GLUCOSE, URINE >=500 mg/dL (NEGATIVE); KETONES,URINE 80 mg/dL (NEGATIVE); LEUKOCYTE ESTERASE,URINE TRACE (NEGATIVE); NITRITE,URINE NEGATIVE (NEGATIVE); PROTEIN,URINE 30 mg/dL (NEGATIVE); URINE SPECIFIC GRAVITY 1.032; UROBILINOGEN,URINE NEGATIVE mg/dL (<2.0)
[2018-07-17 12:34] LABS: ALANINE AMINOTRANSFERASE 28 U/L (9-52); ALBUMIN 4.4 g/dL (3.5-5.0); ALKALINE PHOSPHATASE 96 U/L (38-126); ANION GAP 15 (5-19); ASPARTATE AMINO TRANSFERASE 19 U/L (14-36); BILIRUBIN,DIRECT 0.2 mg/dL (0.0-0.4); BILIRUBIN,TOTAL 0.8 mg/dL (0.2-1.3); BLOOD UREA NITROGEN 16 mg/dL (7-20); CALCIUM 9.8 mg/dL (8.4-10.2); CARBON DIOXIDE 20 mmol/L (22-30); CHLORIDE 101 mmol/L (98-107); GLUCOSE 375 mg/dL (75-110); POTASSIUM 4.7 mmol/L (3.6-5.0); SODIUM 136.4 mmol/L (137-145)
[2018-07-17] MEDS ORDERED: INSULIN REG, HUMAN 100 UNIT/ML 3 ML VIAL (PYX) SUBCUT ONE (13:44)
--- NOTE | 2018-07-17 15:00 | ER Document Report ---
Entered by JAYA CERNA SCRIBE 07/17/18 1227 Acting as scribe for:NATIVIDAD LOMBARDI DO ED General - General Chief Complaint: Nausea Stated Complaint: NAUSEA Time Seen by Provider: 07/17/18 10:45 [facility]Primary [facility]] - Follow up as needed Mode of Arrival: Medic Information source: Patient Notes: Patient is a 27-year-old type 1 diabetic female that presents to the emergency department today with complaints of "might be in DKA". Patient states that this morning when she woke up "at about 8:19" she had an episode of diarrhea. Patient states she did not think too much of this, stating she attributed it to "the whoppers she ate last night". Patient states that she ate "2 cookies, some fruit, and some other stuff" this morning prior to getting ready for work. Patient states that as she was getting ready for work she noticed that she was "having difficulty walking and felt uncoordinated". Patient states that she took her BGL at that time and it was 338. Patient states she decided that she should take her long-lasting insulin a few hours early, so she took 38 units of her long-lasting insulin between 8:30 and 9:00 this morning. Patient states that she has also noticed "fleshy blood" coming from her vagina this morning. Patient states she is unsure if she is . Patient states her last menstrual began on 06/06. Patient states that she has had some nausea as well as blurry vision but denies any fevers or vomiting. TRAVEL OUTSIDE OF THE [place] IN LAST 30 DAYS: No - Related Data Allergies/Adverse Reactions: insulin glargine [From Lantus U-100 Insulin] Adverse Reaction (Verified 07/17/18 10:37) Past Medical History - General Information source: Patient - Social History Smoking Status: Never Smoker Cigarette use (# per day): No Frequency of alcohol use: None Drug Abuse: None Lives with: Family Family History: None, Reviewed & Not Pertinent Patient has suicidal ideation: No Patient has homicidal ideation: No Neurological Medical History: Reports: Hx Migraine Endocrine Medical History: Reports: Hx Diabetes Mellitus Type 1 Renal/ Medical History: Reports: Hx Ovarian Cysts - Immunizations Immunizations up to date: Yes Hx Diphtheria, Pertussis, Tetanus Vaccination: Yes Review of Systems - Review of Systems Constitutional: See HPI, Other - elevated BGLs. denies: Fever EENT: See HPI, Blurred vision Cardiovascular: No symptoms reported Respiratory: No symptoms reported Gastrointestinal: See HPI, Diarrhea, Nausea, Other - "feeling gassy". denies: Vomiting Genitourinary: No symptoms reported Female Genitourinary: See HPI, - ?, Vaginal bleeding Musculoskeletal: No symptoms reported Skin: No symptoms reported Hematologic/Lymphatic: No symptoms reported Neurological/Psychological: See HPI, Other - "Difficulty walking and feeling uncoordinated" -: Yes All other systems reviewed and negative Physical Exam - Vital signs Vitals: Temp Pulse Resp BP Pulse Ox 97.6 F 92 16 118/64 99 07/17/18 10:43 07/17/18 10:43 07/17/18 10:43 07/17/18 10:43 07/17/18 10:43 - Notes Notes: PHYSICAL EXAM GENERAL: Alert, interacts well. No acute distress. HEAD: Normocephalic, atraumatic. EYES: Pupils equal, round, and reactive to light. Extraocular movements intact. ENT: Oral mucosa moist, tongue midline. NECK: Full range of motion. Supple. Trachea midline. LUNGS: Clear to auscultation bilaterally, no wheezes, rales, or rhonchi. No respiratory distress. HEART: Regular rate and rhythm. No murmurs, gallops, or rubs. ABDOMEN: Soft, non-tender. Non-distended. Bowel sounds present in all 4 quadr ants. No guarding, rigidity, or rebound. EXTREMITIES: Moves all 4 extremities spontaneously. No edema, radial and dorsalis pedis pulses 2/4 bilaterally. No cyanosis. NEUROLOGICAL: Alert and oriented x3. Normal speech. PSYCH: Normal affect, normal mood. SKIN: Warm, dry, normal turgor. No rashes or lesions noted. Course - Re-evaluation Re-evalutation: 07/17/18 14:56 CBC unremarkable, CMP shows slight low sodium 136.4, CO2 low at 20 but only mildly low, anion gap is normal at 15, glucose is 375, after 2 L of normal saline is 258, patient refuses to receive the hospitals insulin to treat her blood sugar, she is allowed to give herself her own NovoLog at bedside, advised to use 12 units. Patient is not having any vomiting here, urinalysis does reveal greater than 500 glucose and 80 of ketones, large blood and trace leukocy te esterase. This appears grossly contaminated with 28 squamous epithelial cells. Will be sent for culture however I will also treat her with Macrobid given the fact that she could very easily tip over indeed DKA. No current evidence of diabetic ketoacidosis. Patient is aware that she will need to watch her blood sugar very closely, eat appropriately and treat herself appropriately with the right amount of medication. - Vital Signs Vital signs: Temp Pulse Resp BP Pulse Ox 97.6 F 92 16 118/64 99 07/17/18 10:43 07/17/18 10:43 07/17/18 10:43 07/17/18 10:43 07/17/18 10:43 - Laboratory Result Diagrams: 07/17/18 11:46 07/17/18 11:46 Laboratory results interpreted by me: 07/17/18 07/17/18 07/17/18 11:46 11:46 11:46 Seg Neutrophils % 83.7 H Monocytes % 2.2 L Absolute Neutrophils 8.4 H Sodium 136.4 L Carbon Dioxide 20 L Creatinine 0.48 L Glucose 375 H POC Glucose Urine Protein 30 H Urine Glucose (UA) >=500 H Urine Ketones 80 H Urine Blood LARGE H Ur Leukocyte Esterase TRACE H 07/17/18 14:07 Seg Neutrophils % Monocytes % Absolute Neutrophils Sodium Carbon Dioxide Creatinine Glucose POC Glucose 258 H Urine Protein Urine Glucose (UA) Urine Ketones Urine Blood Ur Leukocyte Esterase - EKG Interpretation by Me Additional EKG results interpreted by me: 07/17/18 14:58 EKG shows sinus arrhythmia at a rate of 85, there is variation with respirations up to 103, no ST segment elevations or depressions, no T wave inversions with the exception of V2, normal axis, normal intervals per my interpretation. Discharge - Discharge Clinical Impression: Hyperglycemia due to type 1 diabetes mellitus Acute cystitis Qualifiers: Hematuria presence: with hematuria Qualified Code(s): N30.01 - Acute cystitis with hematuria Condition: Stable Disposition: HOME, SELF-CARE Additional Instructions: Please drink plenty of fluids, watch your blood sugar very carefully and continue to use your sliding scale insulin as directed. Please return for steadily increasing blood sugars. Return also for fevers, vomiting or any new or concerning symptoms. Prescriptions: Nitrofurantoin/Nitrofuran Mac [Macrobid 100 mg Capsule] 1 tab PO BID #10 capsule Referrals: [facility] [Primary Care Provider] - Follow up as needed I personally performed the services described in the documentation, reviewed and edited the documentation which was dictated to the scribe in my presence, and it accurately records my words and actions.
--- NOTE | 2018-07-17 21:01 | EKG REPORT ---
SEVERITY:- OTHERWISE NORMAL ECG - SINUS ARRHYTHMIA, RATE [id number] : Confirmed by: Yen Chandra MD 17-Jul-2018 21:01:08
== END 2018-07-17 15:37 | disposition home or self-care (01) ==
LOC: ER 10:35
DX: E10.65 Type 1 diabetes mellitus with hyperglycemia (principal); N30.01 Acute cystitis with hematuria; R19.7 Diarrhea, unspecified; N93.9 Abnormal uterine and vaginal bleeding, unspecified; R26.2 Difficulty in walking, not elsewhere classified; R11.0 Nausea; H53.8 Other visual disturbances; I49.9 Cardiac arrhythmia, unspecified
CPT/HCPCS: 93005; 99285; 96361; 96374; 36415; 87086; 82962; 85025; 81025; 80053; 81001; 93010; J2405; J7030

== ENCOUNTER 2018-07-30 20:44 | Emergency (ER) | payer SELFPAY ==
[2018-07-30 21:29] VITALS: BP 122/78
[2018-07-30] MEDS ORDERED: RINGERS SOLUTION,LACTATED 1,000 ML IV ONE (22:17)
--- NOTE | 2018-07-30 22:19 | ER Document Report ---
ED Medical Screen (RME) - General Chief Complaint: Headache <24 hrs old Stated Complaint: NAUSEA Time Seen by Provider: 07/30/18 22:09 Primary Care Provider: DASH ALVA [Primary Care Provider] - Follow up as needed Notes: Patient is a 27-year-old female presents to the emergency department for "heat sickness." Patient states her air conditioning went out today and she feels as though she is very hot. Patient states she was here a few weeks ago for the same. States she was given fluids and felt a lot better. Patient states her blood sugars have been reading in the 200s which is abnormal for her. Patient also complains of generalized nausea headache. Per EMS report patient got 8 mg of ODT Zofran and 400 mg of ibuprofen prior to arrival to the emergency room. Patient states her vision is "going in and out." States sometimes it is "blurry." GENERAL: Alert, interacts well. No acute distress. LUNGS: Clear to auscultation bilaterally, no wheezes, rales, or rhonchi. No respiratory distress. HEART: Regular rate and rhythm. No murmur I have greeted and performed a rapid initial assessment of this patient. A comprehensive ED assessment and evaluation of the patient, analysis of test re sults and completion of the medical decision making process will be conducted by additional ED providers. This medical record was dictated with voice recognizing software. There may be grammatical, syntax errors that are unintended. TRAVEL OUTSIDE OF THE [place] IN LAST 30 DAYS: No - Related Data Allergies/Adverse Reactions: insulin degludec [From Tresiba FlexTouch U-100] Allergy (Verified 07/30/18 22:08) insulin glargine [From Lantus U-100 Insulin] Adverse Reaction (Verified 07/30/18 22:08) Past Medical History - Social History Frequency of alcohol use: None Drug Abuse: None Family history: Reviewed & Not Pertinent Pulmonary Medical History: Denies: Hx Tuberculosis Neurological Medical History: Reports: Hx Migraine Endocrine Medical History: Reports: Hx Diabetes Mellitus Type 1 Renal/ Medical History: Reports: Hx Ovarian Cysts. Denies: Hx Peritoneal Dialysis Psychiatric Medical History: Denies: Hx Depression Past Surgical History: Denies: Hx Pacemaker - Immunizations Immunizations up to date: Yes Hx Diphtheria, Pertussis, Tetanus Vaccination: Yes Physical Exam - Vital signs Vitals: Temp Pulse Resp BP Pulse Ox 98.4 F 74 18 122/78 99 07/30/18 21:27 07/30/18 21:27 07/30/18 21:27 07/30/18 21:27 07/30/18 21:27 Course - Vital Signs Vital signs: Temp Pulse Resp BP Pulse Ox 98.4 F 74 18 122/78 99 07/30/18 21:27 07/30/18 21:27 07/30/18 21:27 07/30/18 21:27 07/30/18 21:27 Doctor's Discharge - Discharge Referrals: [facility] [Primary Care Provider] - Follow up as needed
[2018-07-30 23:30] LABS: ABSOLUTE BASOPHILS # (AUTO) 0.1 10^3/uL (0.0-0.2); ABSOLUTE EOSINOPHILS # (AUTO) 0.2 10^3/uL (0.0-0.6); ABSOLUTE LYMPHOCYTES (AUTO) 2.7 10^3/uL (0.5-4.7); ABSOLUTE MONOCYTES (AUTO) 0.5 10^3/uL (0.1-1.4); ABSOLUTE NEUT (AUTO) 6.5 10^3/uL (1.7-8.2); BASOPHILS % (AUTO) 0.6 % (0-2); EOSINOPHILS % (AUTO) 1.6 % (0-6); HEMATOCRIT 38.6 % (36.0-47.0); HEMOGLOBIN 12.5 g/dL (12.0-15.5); LYMPHOCYTES % (AUTO) 27.1 % (13-45); MEAN CORPUSCULAR HEMOGLOBIN 26.7 pg (27.0-33.4); MEAN CORPUSCULAR HGB CONC 32.5 g/dL (32.0-36.0); MEAN CORPUSCULAR VOLUME 82 fl (80-97); MONOCYTES % (AUTO) 5.3 % (3-13); PLATELET COUNT 260 10^3/uL (150-450); RED BLOOD COUNT 4.69 10^6/uL (3.72-5.28); RED CELL DISTRIBUTION WIDTH 13.2 % (11.5-14.0); SEGMENTED NEUTROPHILS % (AUTO) 65.4 % (42-78); TOTAL CELLS COUNTED % (AUTO) 100 %
[2018-07-30 23:37] LABS: APPEARANCE,URINE CLOUDY; BILIRUBIN,URINE NEGATIVE (NEGATIVE); COLOR,URINE YELLOW; GLUCOSE, URINE >=500 mg/dL (NEGATIVE); KETONES,URINE 20 mg/dL (NEGATIVE); LEUKOCYTE ESTERASE,URINE SMALL (NEGATIVE); NITRITE,URINE NEGATIVE (NEGATIVE); PROTEIN,URINE 30 mg/dL (NEGATIVE); URINE SPECIFIC GRAVITY 1.028; UROBILINOGEN,URINE NEGATIVE mg/dL (<2.0)
[2018-07-30 23:48] LABS: ALANINE AMINOTRANSFERASE 18 U/L (9-52); ALBUMIN 4.2 g/dL (3.5-5.0); ALKALINE PHOSPHATASE 82 U/L (38-126); ANION GAP 12 (5-19); ASPARTATE AMINO TRANSFERASE 17 U/L (14-36); BILIRUBIN,DIRECT 0.2 mg/dL (0.0-0.4); BILIRUBIN,TOTAL 0.4 mg/dL (0.2-1.3); BLOOD UREA NITROGEN 19 mg/dL (7-20); CALCIUM 10.9 mg/dL (8.4-10.2); CARBON DIOXIDE 26 mmol/L (22-30); CHLORIDE 99 mmol/L (98-107); GLUCOSE 185 mg/dL (75-110); POTASSIUM 4.3 mmol/L (3.6-5.0); SODIUM 136.7 mmol/L (137-145); TOTAL PROTEIN 7.9 g/dL (6.3-8.2)
[2018-07-31] MEDS ORDERED: ACETAMINOPHEN 325 MG TABLET PO ONE (01:44)
[2018-07-31] MEDS ORDERED: ONDANSETRON HCL INJ/PF 4 MG/2 ML SDV IV ONE (02:34)
[2018-07-31 03:14] LABS: BACTERIA (WET MOUNT) 4+ BACTERIA SEEN; RBCS (WET MOUNT) NO RBCS SEEN; T.VAGINALIS (WET MOUNT) NO TRICHOMONAS SEEN; WBCS (WET MOUNT) FEW WBCS SEEN; YEAST (WET MOUNT) NO YEAST SEEN
[2018-07-31] MEDS ORDERED: METRONIDAZOLE 500 MG TABLET PO ONE (03:26)
[2018-07-31] MEDS ORDERED: AZITHROMYCIN 250 MG TABLET PO ONE (03:26)
[2018-07-31] MEDS ORDERED: CEFTRIAXONE INJ 250 MG VIAL IM ONE (03:26)
--- NOTE | 2018-07-31 03:56 | ER Document Report ---
ED General - General Chief Complaint: Headache <24 hrs old Stated Complaint: NAUSEA Time Seen by Provider: 07/30/18 22:09 Primary Care Provider: [facility] [Primary Care Provider] - Follow up as needed Notes: Patient is a 27-year-old female presents to the emergency department for "heat sickness." Patient states her air conditioning went out today and she feels as though she is very hot. Patient states she was here a few weeks ago for the same. States she was given fluids and felt a lot better. Patient states her blood sugars have been reading in the 200s which is abnormal for her. Patient also complains of generalized nausea headache. Per EMS report patient got 8 mg of ODT Zofran and 400 mg of ibuprofen prior to arrival to the emergency room. Patient states her vision is "going in and out." States sometimes it is "blurry." Patient is unable to recall last time she went to the eye doctor. Patient is denying dysuria but is complaining of generalized vaginal discharge and itching. TRAVEL OUTSIDE OF THE [place] IN LAST 30 DAYS: No - Related Data Allergies/Adverse Reactions: insulin degludec [From Tresiba FlexTouch U-100] Allergy (Verified 07/30/18 22:08) insulin glargine [From Lantus U-100 Insulin] Adverse Reaction (Verified 07/30/18 22:08) Past Medical History - Social History Smoking Status: Never Smoker Frequency of alcohol use: None Drug Abuse: None Family History: None, Reviewed & Not Pertinent Patient has suicidal ideation: No Patient has homicidal ideation: No Pulmonary Medical History: Denies: Hx Tuberculosis Neurological Medical History: Reports: Hx Migraine Endocrine Medical History: Reports: Hx Diabetes Mellitus Type 1 Renal/ Medical History: Reports: Hx Ovarian Cysts. Denies: Hx Peritoneal Di alysis Psychiatric Medical History: Denies: Hx Depression Past Surgical History: Denies: Hx Pacemaker - Immunizations Immunizations up to date: Yes Hx Diphtheria, Pertussis, Tetanus Vaccination: Yes Physical Exam - Vital signs Vitals: Temp Pulse Resp BP Pulse Ox 98.4 F 74 18 122/78 99 07/30/18 21:27 07/30/18 21:27 07/30/18 21:27 07/30/18 21:27 07/30/18 21:27 - HEENT Visual acuity- Right eye: 20/70 Visual acuity- Left eye: 20/50 Visual acuity- Both eyes: 20/30 Corrective lenses worn: No Course - Re-evaluation Re-evalutation: 07/31/18 03:58 After treatments in the emergency department patient states she overall feels a lot better. She is currently denying any headache, blurred vision or abnormal vision. Discussed with her at length the need to follow-up with rewinder operator helper due to her visual acuity in the emergency department. Patient's wet mount did show signs of bacterial vaginosis, will treat for same. 07/31/18 03:59 Patient's labs show no signs of leukocytosis, no signs of anemia. Patient's anion gap was 12. Patient's urine shows no signs of infection, she was prophylactically treated for gonorrhea and chlamydia in the emergency department due to test results pending. Patient stable for discharge. 07/31/18 04:07 Patient's blood sugar is noted to be 218. Patient states she wishes to go home and eat something and will take her at home insulin. Patient is declining any insulin in the emergency department. - Vital Signs Vital signs: Temp Pulse Resp BP Pulse Ox 98.4 F 74 18 122/78 100 07/30/18 21:27 07/30/18 21:27 07/30/18 21:27 07/30/18 21:27 07/31/18 02:00 - Laboratory Result Diagrams: 07/30/18 22:52 07/30/18 22:52 Laboratory results interpreted by me: 07/30/18 07/30/18 07/30/18 22:51 22:52 22:52 MCH 26.7 L Sodium 136.7 L Glucose 185 H POC Glucose 181 H Calcium 10.9 H Urine Protein Urine Glucose (UA) Urine Ketones Ur Leukocyte Esterase Urine Ascorbic Acid 07/30/18 07/31/18 07/31/18 22:52 01:21 01:51 MCH Sodium Glucose POC Glucose 214 H 219 H Calcium Urine Protein 30 H Urine Glucose (UA) >=500 H Urine Ketones 20 H Ur Leukocyte Esterase SMALL H Urine Ascorbic Acid 20 H Discharge - Discharge Clinical Impression: Bacterial vaginosis, Dehydration, Hyperglycemia Condition: Stable Disposition: HOME, SELF-CARE Instructions: Dehydration ([facility]), Hyperglycemia ([facility]), Vaginosis, Bacterial ([facility]) Additional Instructions: As we discussed you have been seen and treated in the emergency department for a headache, high blood sugar, nausea. Your lab results reveal signs of bacterial vaginosis. Please make sure you take antibiotics as prescribed. You have been prophylactically treated for gonorrhea and chlamydia. Those test results will not come back for hours. Please follow-up with medical records to get this test results. Please make sure you take your home insulin as prescribed and continue monitoring your sugars closely. Please follow-up with your primary care provider in the next 24 to 48 hours. Please return to the emergency room for any other concerning symptoms. Prescriptions: Metronidazole [Flagyl 500 mg Tablet] 500 mg PO BID #14 tablet Referrals: [facility] [Primary Care Provider] - Follow up as needed
[2018-07-31 04:39] LABS: CHLAM PCR NOT DETECTED (NOT DETECT); GON PCR NOT DETECTED (NOT DETECT)
== END 2018-07-31 04:27 | disposition home or self-care (01) ==
LOC: ER 20:44
DX: N76.0 Acute vaginitis (principal); B96.89 Other specified bacterial agents as the cause of diseases classified elsewhere; E86.0 Dehydration; E11.65 Type 2 diabetes mellitus with hyperglycemia; R51 Headache; R11.0 Nausea
CPT/HCPCS: 99284; 96361; 96374; 36415; 87086; 87210; 82962; 85025; 81025; 87088; 80053; 81001; 87491; 87591; J2405; J7120

== ENCOUNTER 2018-09-18 14:57 | Emergency (ER) | payer SELFPAY ==
--- NOTE | 2018-09-18 16:19 | ER Document Report ---
ED Medical Screen (RME) - General Chief Complaint: Vomiting Stated Complaint: VOMITING Time Seen by Provider: 09/18/18 16:18 Primary Care Provider: [facility] [Primary Care Provider] - Follow up as needed TRAVEL OUTSIDE OF THE [place] IN LAST 30 DAYS: No - HPI Notes: 09/18/18 16:19 Patient is a 28-year-old female with history of type 1 diabetes who presents complaining of having nausea and vomiting after eating [employer] couple days ago, but has not vomited in 1 to 2 days. Patient states that she does continue to feel nauseated with blurring of her vision intermittently which she has had before when her sugars start getting it the 200s. She states that she is on a wait list for an eye doctor currently. She is otherwise urinating normally and having normal bowel movements. Patient reports intermittent headache as well. She has been seen for something similar a month ago. Denies fever, neck pain, URI, CP, SOB, Abd pain, dysuria, back pain, or rash. I have treated and performed a rapid initial assessment of this patient. A comprehensive ED assessment and evaluation of the patient, analysis of test results and completion of medical decision making process will be conducted by additional ED providers. PHYSICAL EXAMINATION: GENERAL: Well-appearing, well-nourished and in no acute distress. A&Ox4. Answers questions appropriately. LUNGS: Breath sounds clear to auscultation bilaterally and equal. No wheezes rales or rhonchi. HEART: Regular rate and rhythm without murmurs, rubs, gallops. - Related Data Allergies/Adverse Reactions: insulin degludec [From Tresiba FlexTouch U-100] Allergy (Verified 09/18/18 15:01) insulin glargine [From Lantus U-100 Insulin] Adverse Reaction (Verified 09/18/18 15:01) Past Medical History - Social History Family history: Reviewed & Not Pertinent Pulmonary Medical History: Denies: Hx Tuberculosis Neurological Medical History: Reports: Hx Migraine Endocrine Medical History: Reports: Hx Diabetes Mellitus Type 1 Renal/ Medical History: Reports: Hx Ovarian Cysts. Denies: Hx Peritoneal Dialysis Psychiatric Medical History: Denies: Hx Depression Past Surgical History: Denies: Hx Pacemaker - Immunizations Immunizations up to date: Yes Hx Diphtheria, Pertussis, Tetanus Vaccination: Yes Physical Exam - Vital signs Vitals: Temp Pulse Resp BP Pulse Ox 98.5 F 85 18 117/79 99 09/18/18 15:05 09/18/18 15:05 09/18/18 15:05 09/18/18 15:05 09/18/18 15:05 Course - Vital Signs Vital signs: Temp Pulse Resp BP Pulse Ox 98.5 F 85 18 117/79 99 09/18/18 15:05 09/18/18 15:05 09/18/18 15:05 09/18/18 15:05 09/18/18 15:05 Doctor's Discharge - Discharge Referrals: [facility] [Primary Care Provider] - Follow up as needed
[2018-09-18] MEDS ORDERED: ONDANSETRON 4 MG TAB.RAPDIS PO ONE (16:23)
[2018-09-18 17:30] LABS: ABSOLUTE BASOPHILS # (AUTO) 0.1 10^3/uL (0.0-0.2); ABSOLUTE EOSINOPHILS # (AUTO) 0.2 10^3/uL (0.0-0.6); ABSOLUTE LYMPHOCYTES (AUTO) 2.7 10^3/uL (0.5-4.7); ABSOLUTE MONOCYTES (AUTO) 0.5 10^3/uL (0.1-1.4); ABSOLUTE NEUT (AUTO) 6.3 10^3/uL (1.7-8.2); BASOPHILS % (AUTO) 0.6 % (0-2); EOSINOPHILS % (AUTO) 2.1 % (0-6); HEMATOCRIT 38.4 % (36.0-47.0); HEMOGLOBIN 12.4 g/dL (12.0-15.5); LYMPHOCYTES % (AUTO) 28.1 % (13-45); MEAN CORPUSCULAR HEMOGLOBIN 26.7 pg (27.0-33.4); MEAN CORPUSCULAR HGB CONC 32.4 g/dL (32.0-36.0); MEAN CORPUSCULAR VOLUME 83 fl (80-97); MONOCYTES % (AUTO) 4.8 % (3-13); PLATELET COUNT 253 10^3/uL (150-450); RED BLOOD COUNT 4.65 10^6/uL (3.72-5.28); RED CELL DISTRIBUTION WIDTH 13.2 % (11.5-14.0); SEGMENTED NEUTROPHILS % (AUTO) 64.4 % (42-78); TOTAL CELLS COUNTED % (AUTO) 100 %; WHITE BLOOD COUNT 9.8 10^3/uL (4.0-10.5)
[2018-09-18 17:36] LABS: APPEARANCE,URINE SLIGHTLY-CLOUDY; BILIRUBIN,URINE NEGATIVE (NEGATIVE); COLOR,URINE STRAW; GLUCOSE, URINE >=500 mg/dL (NEGATIVE); KETONES,URINE NEGATIVE (NEGATIVE); LEUKOCYTE ESTERASE,URINE TRACE (NEGATIVE); NITRITE,URINE NEGATIVE (NEGATIVE); PROTEIN,URINE NEGATIVE (NEGATIVE); URINE SPECIFIC GRAVITY 1.037; UROBILINOGEN,URINE NEGATIVE mg/dL (<2.0)
[2018-09-18 17:49] LABS: ALANINE AMINOTRANSFERASE 14 U/L (9-52); ALBUMIN 4.4 g/dL (3.5-5.0); ALKALINE PHOSPHATASE 81 U/L (38-126); ANION GAP 14 (5-19); ASPARTATE AMINO TRANSFERASE 14 U/L (14-36); BILIRUBIN,DIRECT 0.2 mg/dL (0.0-0.4); BILIRUBIN,TOTAL 0.6 mg/dL (0.2-1.3); BLOOD UREA NITROGEN 13 mg/dL (7-20); CALCIUM 9.8 mg/dL (8.4-10.2); CARBON DIOXIDE 24 mmol/L (22-30); CHLORIDE 96 mmol/L (98-107); LIPASE 89.7 U/L (23-300); POTASSIUM 4.2 mmol/L (3.6-5.0); SODIUM 133.6 mmol/L (137-145)
[2018-09-18 17:57] LABS: GLUCOSE 441 mg/dL (75-110)
[2018-09-18] MEDS ORDERED: NORMAL SALINE 1000 ML 1,000 ML IV ONE (18:38)
[2018-09-18] MEDS ORDERED: INSULIN REG, HUMAN 100 UNIT/ML 3 ML VIAL (PYX) SUBCUT ONE ×2 (18:38→19:52)
--- NOTE | 2018-09-18 18:44 | ER Document Report ---
ED General - General Chief Complaint: Vomiting Stated Complaint: VOMITING Time Seen by Provider: 09/18/18 16:18 Primary Care Provider: [facility] [NO LOCAL MD] - Follow up as needed Notes: 28-year-old female presents to the ER from complaint of nausea vomiting and abdominal pain. She is a type I diabetic and states her sugars have been running high at the usually run in the 300s normally. She states they have been for 50 for the last several days. She denies fever chills cough or sore throat does complain of some burning and cramping in her epigastrium and pelvis. States she is vomited several times a day states she has not been in DKA as of late denies any illicit drug use. Complains of a history of ovarian cyst. Denies possibility of . TRAVEL OUTSIDE OF THE [place] IN LAST 30 DAYS: No - Related Data Allergies/Adverse Reactions: insulin degludec [From Tresiba FlexTouch U-100] Allergy (Verified 09/18/18 15:01) insulin glargine [From Lantus U-100 Insulin] Adverse Reaction (Verified 09/18/18 15:01) Past Medical History - Social History Smoking Status: Unknown if Ever Smoked Family History: None, Reviewed & Not Pertinent Pulmonary Medical History: Denies: Hx Tuberculosis Neurological Medical History: Reports: Hx Migraine Endocrine Medical History: Reports: Hx Diabetes Mellitus Type 1 Renal/ Medical History: Reports: Hx Ovarian Cysts. Denies: Hx Peritoneal Dialysis Psychiatric Medical History: Denies: Hx Depression Past Surgical History: Denies: Hx Pacemaker - Immunizations Immunizations up to date: Yes Hx Diphtheria, Pertussis, Tetanus Vaccination: Yes Review of Systems - Review of Systems Constitutional: denies: Chills, Fever EENT: denies: Double vision, Throat pain Cardiovascular: denies: Chest pain, Dyspnea Respiratory: denies: Cough, Short of breath Gastrointestinal: Abdominal pain, Nausea, Vomiting. denies: Diarrhea, Constipation, Black stools, Rectal bleeding Genitourinary: denies: Dysuria, Flank pain Musculoskeletal: denies: Back pain Neurological/Psychological: denies: Sensory change, Headaches -: Yes All other systems reviewed and negative Physical Exam - Vital signs Vitals: Temp Pulse Resp BP Pulse Ox 98.5 F 85 18 117/79 99 09/18/18 15:05 09/18/18 15:05 09/18/18 15:05 09/18/18 15:05 09/18/18 15:05 - Notes Notes: GENERAL_APPEARANCE: well_nourished, alert, cooperative, no_acute_distress, no_obvious_discomfort. VITALS: reviewed, see vital signs table. HEAD: no_swelling\tenderness on the head. EYES: PERRL, EOMI, conjunctiva_clear. NOSE: no_nasal_discharge. MOUTH: Dry mucous membranes THROAT: no_tonsilar_inflammation, no_airway_obstruction. no_lymphadenopathy NECK: supple, no_neck_tenderness, (-)thyromegaly. BACK: no_back_tenderness. CHEST_WALL: no_chest_tenderness. LUNGS: no_wheezing, no_rales, no_rhonchi, (-)accessory muscle use, good air ex change bilateral. HEART: normal_rate, normal_rhythm, normal_S1, normal_S2, (-)S3, (-)S4, no_murmur, no_rub. ABDOMEN: normal_BS, soft, prepubic_abd_tenderness, (-)guarding, (-)rebound, no_organomegaly, no_abd_masses. EXTREMITIES: good pulses in all_extremities, no_swelling\tenderness in the extremities, no_edema. SKIN: warm, dry, good_color, no_rash. MENTAL_STATUS: speech_clear, oriented_X_3, normal_affect, responds_appropriately to questions. NEURO: Neg Motor or Sensory Deficits on exam, CN 2-12 intact, DTR 2+ symmetric x 4, No cerbellar signs Course - Re-evaluation Re-evalutation: 09/18/18 18:48 28-year-old female history of diabetes presents with high blood sugars we will check the patient for DKA. Give patient IV fluids a dose of insulin. Patient is not in DKA there is no anion gap acidosis. No ketones in the urine. The patient can planes of a lot of pelvic pain has history of ovarian cyst we will do a pelvic Doppler to rule out torsion. Patient has no tenderness McBurney's point no rebound or guarding. 09/18/18 20:40 Small ovarian cyst likely follicular on the right. The patient is not . The patient expressed concerns about her pelvic pain and that she has not had a. In a month and a half. I spoke with her she will need to follow-up with an PROFESSIONAL HOUSING CONSULTANT she is not at this time her ultrasound is unremarkable. Likely with the patient's diabetes and stresses she may be susceptible to hormone dysfunction irregular periods currently there is nothing to suggest ectopic or torsion or any other emergency medical condition. Patient's blood sugars come down nicely and she will be discharged home. - Vital Signs Vital signs: Temp Pulse Resp BP Pulse Ox 98.5 F 85 18 117/79 99 09/18/18 15:05 09/18/18 15:05 09/18/18 15:05 09/18/18 15:05 09/18/18 15:05 - Laboratory Result Diagrams: 09/18/18 17:08 09/18/18 17:08 Laboratory results interpreted by me: 09/18/18 09/18/18 09/18/18 17:08 17:08 17:08 MCH 26.7 L Sodium 133.6 L Chloride 96 L Creatinine 0.44 L Glucose 441 H* POC Glucose Urine Glucose (UA) >=500 H Urine Blood SMALL H Ur Leukocyte Esterase TRACE H 09/18/18 20:06 MCH Sodium Chloride Creatinine Glucose POC Glucose 257 H Urine Glucose (UA) Urine Blood Ur Leukocyte Esterase Discharge - Discharge Clinical Impression: Hyperglycemia Ovarian cyst Qualifiers: Laterality: right Qualified Code(s): N83.201 - Unspecified ovarian cyst, right side Condition: Good Disposition: HOME, SELF-CARE Instructions: Ovarian Cyst ([facility]), Hyperglycemia ([facility]) Additional Instructions: Please follow-up with your PROFESSIONAL HOUSING CONSULTANT for further care. Prescriptions: Ondansetron [Zofran Odt 4 mg Tablet] 1 - 2 tab PO Q4H PRN #15 tab.rapdis PRN Reason: For Nausea/Vomiting Referrals: [facility] [NO LOCAL MD] - Follow up as needed
--- NOTE | 2018-09-18 20:24 | RADIOLOGY REPORT (SQ) ---
EXAM DESCRIPTION: US PELVIS TRANSVAGINAL COMPLETED DATE/TME: 09/18/2018 18:37 CLINICAL HISTORY: 28 years, Female, pelvic pain; late menses COMPARISON: Prior study from 08/29/2017 TECHNIQUE: 2-D grayscale images of the pelvis were performed. Doppler was utilized. LIMITATIONS: None. FINDINGS: Uterus measures 8.1 x 4.1 x 5.0 cm in size. Endometrial stripe thickness measures 12 mm, within normal limits for a premenopausal female. Cervix appears normal. Right ovary measures 2.7 x 1.8 x 3.1 cm in size. It contains a thick-walled anechoic lesion with peripheral Doppler flow measuring 2.0 x 1.6 x 1.7 cm in size, likely indicating a corpus luteal cyst. Otherwise, the right ovary demonstrates normal low resistance arterial waveforms as well as venous flow. Left ovary was not visualized. A small amount of free fluid is noted within the pelvis. IMPRESSION: Suspect corpus luteal cyst located about the right ovary, a benign finding. However, confirmation of the patient's non state is recommended with serum beta-hCG levels, if not already recently performed as an ovarian ectopic could technically have this appearance (especially given the provided history of late menses). Small amount of free fluid within the pelvis, likely physiologic. copyright 2010 [employer]- All Rights Reserved
[2018-09-18 21:14] VITALS: BP 112/72
== END 2018-09-18 21:14 | disposition home or self-care (01) ==
LOC: ER 14:57
DX: E10.65 Type 1 diabetes mellitus with hyperglycemia (principal); N83.201 Unspecified ovarian cyst, right side; R11.2 Nausea with vomiting, unspecified; R10.13 Epigastric pain; R10.2 Pelvic and perineal pain; Z88.8 Allergy status to other drugs, medicaments and biological substances
CPT/HCPCS: 99284; 96360; 36415; 82962; 83690; 84703; 85025; 80053; 81001; 76830; S0119; J7030

== ENCOUNTER 2019-01-26 13:12 | Emergency (ER) | payer SELFPAY ==
--- NOTE | 2019-01-26 13:33 | ER Document Report ---
ED Medical Screen (RME) - General Chief Complaint: Abdominal Pain Stated Complaint: ABDOMINAL PAIN Time Seen by Provider: 01/26/19 13:29 Mode of Arrival: Medic Information source: Patient Notes: This 28-year-old female with history of diabetes presents emergency department with complaints of abdominal pain increased stooling. Also reports her sugar was really high but it took her a long time to get it down. She complains that when she had a bowel movement she became very sweaty. She is had 4 bowel movements this morning. She also complained of increased thirst increased urination. EMS reports Accu-Chek at 194. Patient did receive 350 mils normal saline. I have greeted and performed a rapid initial assessment of this patient. A comprehensive ED assessment and evaluation of the patient, analysis of test results and completion of the medical decision making process will be conducted by additional ED providers. Dictation of this chart was performed using voice recognition software; therefore, there may be some unintended grammatical errors. TRAVEL OUTSIDE OF THE [place] IN LAST 30 DAYS: No - Related Data Allergies/Adverse Reactions: insulin degludec [From Tresiba FlexTouch U-100] Allergy (Verified 01/26/19 13:31) insulin glargine [From Lantus U-100 Insulin] Adverse Reaction (Verified 01/26/19 13:31) Past Medical History - Social History Family history: Reviewed & Not Pertinent Pulmonary Medical History: Denies: Hx Tuberculosis Neurological Medical History: Reports: Hx Migraine Endocrine Medical History: Reports: Hx Diabetes Mellitus Type 1 Renal/ Medical History: Reports: Hx Ovarian Cysts. Denies: Hx Peritoneal Dialysis Psychiatric Medical History: Denies: Hx Depression Past Surgical History: Denies: Hx Pacemaker - Immunizations Immunizations up to date: Yes Hx Diphtheria, Pertussis, Tetanus Vaccination: Yes
[2019-01-26] MEDS ORDERED: ONDANSETRON HCL INJ/PF 4 MG/2 ML SDV IV ONE (15:34)
[2019-01-26] MEDS ORDERED: RINGERS SOLUTION,LACTATED 1,000 ML IV ONE ×2 (15:34→17:36)
[2019-01-26 15:35] LABS: ABSOLUTE BASOPHILS # (AUTO) 0.1 10^3/uL (0.0-0.2); ABSOLUTE LYMPHOCYTES (AUTO) 1.4 10^3/uL (0.5-4.7); ABSOLUTE MONOCYTES (AUTO) 0.4 10^3/uL (0.1-1.4); ABSOLUTE NEUT (AUTO) 8.8 10^3/uL (1.7-8.2); BASOPHILS % (AUTO) 0.5 % (0-2); EOSINOPHILS % (AUTO) 0.2 % (0-6); HEMATOCRIT 36.6 % (36.0-47.0); LYMPHOCYTES % (AUTO) 13.1 % (13-45); MEAN CORPUSCULAR HGB CONC 32.7 g/dL (32.0-36.0); MEAN CORPUSCULAR VOLUME 83 fl (80-97); MONOCYTES % (AUTO) 3.5 % (3-13); PLATELET COUNT 273 10^3/uL (150-450); RED BLOOD COUNT 4.43 10^6/uL (3.72-5.28); RED CELL DISTRIBUTION WIDTH 12.9 % (11.5-14.0); SEGMENTED NEUTROPHILS % (AUTO) 82.7 % (42-78); TOTAL CELLS COUNTED % (AUTO) 100 %; WHITE BLOOD COUNT 10.7 10^3/uL (4.0-10.5)
[2019-01-26 15:37] LABS: VENOUS BLOOD BASE EXCESS -5.3 mmol/L; VENOUS BLOOD HCO3 20.9 mmol/L (20-32); VENOUS BLOOD PH 7.3 (7.30-7.42)
[2019-01-26 15:53] LABS: ALKALINE PHOSPHATASE 85 U/L (38-126); ANION GAP 12 (5-19); ASPARTATE AMINO TRANSFERASE 17 U/L (14-36); BILIRUBIN,DIRECT 0.1 mg/dL (0.0-0.4); BILIRUBIN,TOTAL 0.7 mg/dL (0.2-1.3); BLOOD UREA NITROGEN 17 mg/dL (7-20); CALCIUM 9.7 mg/dL (8.4-10.2); CARBON DIOXIDE 20 mmol/L (22-30); CHLORIDE 108 mmol/L (98-107); GLUCOSE 224 mg/dL (75-110); POTASSIUM 4.4 mmol/L (3.6-5.0); TOTAL PROTEIN 7.4 g/dL (6.3-8.2)
[2019-01-26 17:31] LABS: APPEARANCE,URINE SLIGHTLY-CLOUDY; BILIRUBIN,URINE NEGATIVE (NEGATIVE); COLOR,URINE YELLOW; GLUCOSE, URINE >=500 mg/dL (NEGATIVE); KETONES,URINE 80 mg/dL (NEGATIVE); LEUKOCYTE ESTERASE,URINE NEGATIVE (NEGATIVE); NITRITE,URINE NEGATIVE (NEGATIVE); PROTEIN,URINE 30 mg/dL (NEGATIVE); URINE SPECIFIC GRAVITY 1.026; UROBILINOGEN,URINE NEGATIVE mg/dL (<2.0)
--- NOTE | 2019-01-26 18:22 | ER Document Report ---
ED General - General Chief Complaint: Abdominal Pain Stated Complaint: ABDOMINAL PAIN Time Seen by Provider: 01/26/19 13:29 Primary Care Provider: [facility] [Primary Care Provider] - Follow up as needed Mode of Arrival: Medic Notes: Patient is a 28-year-old female type I diabetic presents to the emergency department for an increase in her blood sugars. States this morning her sugar was noted to be 397. States she did take Levemir and NovoLog. States she overall felt very tired so she took a nap. States when she woke up she had a "fruity taste in my mouth." States she has had 3 episodes of diarrhea this morning. She is denying any blood in her stool. Patient also complaining of nausea but is denying any vomiting. She is denying any cough, congestion or fevers. She is denying any dysuria or vaginal discharge. She is denying any change in her medication regimen. States she has a "slight sore throat." She is denying any abdominal pain, chest pain. TRAVEL OUTSIDE OF THE [place] IN LAST 30 DAYS: No - Related Data Allergies/Adverse Reactions: insulin degludec [From Tresiba FlexTouch U-100] Allergy (Verified 01/26/19 13:31) insulin glargine [From Lantus U-100 Insulin] Adverse Reaction (Verified 01/26/19 13:31) Past Medical History - General Information source: Patient - Social History Smoking Status: Never Smoker Chew tobacco use (# tins/day): No Frequency of alcohol use: None Drug Abuse: None Family History: None, Reviewed & Not Pertinent Patient has suicidal ideation: No Patient has homicidal ideation: No Pulmonary Medical History: Denies: Hx Tuberculosis Neurological Medical History: Reports: Hx Migraine Endocrine Medical History: Reports: Hx Diabetes Mellitus Type 1 Renal/ Medical History: Reports: Hx Ovarian Cysts. Denies: Hx Peritoneal Dialysis Psychiatric Medical History: Denies: Hx Depression Past Surgical History: Denies: Hx Pacemaker - Immunizations Immunizations up to date: Yes Hx Diphtheria, Pertussis, Tetanus Vaccination: Yes Review of Systems - Review of Systems Constitutional: denies: Fever EENT: See HPI Cardiovascular: See HPI Respiratory: No symptoms reported Gastrointestinal: See HPI Genitourinary: See HPI Female Genitourinary: No symptoms reported Musculoskeletal: No symptoms reported Skin: No symptoms reported Hematologic/Lymphatic: No symptoms reported Neurological/Psychological: No symptoms reported Physical Exam - Vital signs Vitals: Temp Pulse Resp BP Pulse Ox 98.2 F 97 14 104/64 100 01/26/19 13:39 01/26/19 13:39 01/26/19 13:39 01/26/19 13:39 01/26/19 13:39 - Notes Notes: GENERAL: Alert, interacts well. No acute distress. HEAD: Normocephalic, atraumatic. EYES: Pupils equal, round, and reactive to light. Extraocular movements intact. ENT: Oral mucosa moist, tongue midline. NECK: Full range of motion. Supple. Trachea midline. LUNGS: Clear to auscultation bilaterally, no wheezes, rales, or rhonchi. No r espiratory distress. HEART: Regular rate and rhythm. No murmur ABDOMEN: Soft, non-tender. Non-distended. Bowel sounds present in all 4 quadrants. EXTREMITIES: Moves all 4 extremities spontaneously. No edema, normal radial and dorsalis pedis pulses bilaterally. No cyanosis. BACK: no cervical, thoracic, lumbar midline tenderness. No saddle anesthesia, normal distal neurovascular exam. NEUROLOGICAL: Alert and oriented x3. Normal speech. cranial nerves II through XII grossly intact PSYCH: Normal affect, normal mood. SKIN: Warm, dry, normal turgor. No rashes or lesions noted. Course - Re-evaluation Re-evalutation: Laboratory 01/26/19 01/26/19 01/26/19 15:18 15:25 15:25 WBC 10.7 H RBC 4.43 Hgb 12.0 Hct 36.6 MCV 83 MCH 27.0 MCHC 32.7 RDW 12.9 Plt Count 273 Lymph % (Auto) 13.1 Nelson % (Auto) 3.5 Eos % (Auto) 0.2 Baso % (Auto) 0.5 Absolute Neuts (auto) 8.8 H Absolute Lymphs (auto) 1.4 Absolute Monos (auto) 0.4 Absolute Eos (auto) 0.0 Absolute Basos (auto) 0.1 Seg Neutrophils % 82.7 H VBG pH VBG pCO2 VBG HCO3 VBG Base Excess Sodium 140.3 Potassium 4.4 Chloride 108 H Carbon Dioxide 20 L Anion Gap 12 BUN 17 Creatinine 0.52 Est GFR ( Amer) > 60 Est GFR (MDRD) Non-Af > 60 Glucose 224 H POC Glucose 239 H Calcium 9.7 Total Bilirubin 0.7 Direct Bilirubin 0.1 Neonat Total Bilirubin Not Reportable Neonat Direct Bilirubin Not Reportable Neonat Indirect Bili Not Reportable AST 17 ALT 16 Alkaline Phosphatase 85 Total Protein 7.4 Albumin 4.0 Urine Color Urine Appearance Urine pH Ur Specific [place] Urine Protein Urine Glucose (UA) Urine Ketones Urine Blood Urine Nitrite Urine Bilirubin Urine Urobilinogen Ur Leukocyte Esterase Urine WBC (Auto) Urine RBC (Auto) U Hyaline Cast (Auto) Urine Bacteria (Auto) Squamous Epi Cells Auto Urine Mucus (Auto) Urine Ascorbic Acid Urine HCG, Qual Group A Strep Rapid 01/26/19 01/26/19 01/26/19 15:25 16:19 17:00 WBC RBC Hgb Hct MCV MCH MCHC RDW Plt Count Lymph % (Auto) Nelson % (Auto) Eos % (Auto) Baso % (Auto) Absolute Neuts (auto) Absolute Lymphs (auto) Absolute Monos (auto) Absolute Eos (auto) Absolute Basos (auto) Seg Neutrophils % VBG pH 7.30 VBG pCO2 43.0 VBG HCO3 20.9 VBG Base Excess -5.3 Sodium Potassium Chloride Carbon Dioxide Anion Gap BUN Creatinine Est GFR ( Amer) Est GFR (MDRD) Non-Af Glucose POC Glucose Calcium Total Bilirubin Direct Bilirubin Neonat Total Bilirubin Neonat Direct Bilirubin Neonat Indirect Bili AST ALT Alkaline Phosphatase Total Protein Albumin Urine Color YELLOW Urine Appearance SLIGHTLY-CLOUDY Urine pH 5.0 Ur Specific [place] 1.026 Urine Protein 30 H Urine Glucose (UA) >=500 H Urine Ketones 80 H Urine Blood SMALL H Urine Nitrite NEGATIVE Urine Bilirubin NEGATIVE Urine Urobilinogen NEGATIVE Ur Leukocyte Esterase NEGATIVE Urine WBC (Auto) 5 Urine RBC (Auto) 3 U Hyaline Cast (Auto) 4 Urine Bacteria (Auto) TRACE Squamous Epi Cells Auto 7 Urine Mucus (Auto) MOD Urine Ascorbic Acid 20 H Urine HCG, Qual NEGATIVE Group A Strep Rapid NEGATIVE 01/26/19 19:08 WBC RBC Hgb Hct MCV MCH MCHC RDW Plt Count Lymph % (Auto) Nelson % (Auto) Eos % (Auto) Baso % (Auto) Absolute Neuts (auto) Absolute Lymphs (auto) Absolute Monos (auto) Absolute Eos (auto) Absolute Basos (auto) Seg Neutrophils % VBG pH VBG pCO2 VBG HCO3 VBG Base Excess Sodium Potassium Chloride Carbon Dioxide Anion Gap BUN Creatinine Est GFR ( Amer) Est GFR (MDRD) Non-Af Glucose POC Glucose 150 H Calcium Total Bilirubin Direct Bilirubin Neonat Total Bilirubin Neonat Direct Bilirubin Neonat Indirect Bili AST ALT Alkaline Phosphatase Total Protein Albumin Urine Color Urine Appearance Urine pH Ur Specific [place] Urine Protein Urine Glucose (UA) Urine Ketones Urine Blood Urine Nitrite Urine Bilirubin Urine Urobilinogen Ur Leukocyte Esterase Urine WBC (Auto) Urine RBC (Auto) U Hyaline Cast (Auto) Urine Bacteria (Auto) Squamous Epi Cells Auto Urine Mucus (Auto) Urine Ascorbic Acid Urine HCG, Qual Group A Strep Rapid Patient sugar was noted to be elevated at today's visit, no signs of acidosis on labs. Patient was treated with fluid resuscitation in the emergency department. Discussed with her close follow-up with primary care provider and keeping a close eye on her sugars. Patient was able to drink fluids with no further episodes of nausea. Patient stable for discharge. - Vital Signs Vital signs: Temp Pulse Resp BP Pulse Ox 98.0 F 82 16 117/70 100 01/26/19 19:31 01/26/19 19:31 01/26/19 19:31 01/26/19 19:31 01/26/19 19:31 - Laboratory Result Diagrams: 01/26/19 15:25 01/26/19 15:25 Laboratory results interpreted by me: 01/26/19 01/26/19 01/26/19 15:18 15:25 15:25 WBC 10.7 H Absolute Neuts (auto) 8.8 H Seg Neutrophils % 82.7 H Chloride 108 H Carbon Dioxide 20 L Glucose 224 H POC Glucose 239 H Urine Protein Urine Glucose (UA) Urine Ketones Urine Blood Urine Ascorbic Acid 01/26/19 01/26/19 16:19 19:08 WBC Absolute Neuts (auto) Seg Neutrophils % Chloride Carbon Dioxide Glucose POC Glucose 150 H Urine Protein 30 H Urine Glucose (UA) >=500 H Urine Ketones 80 H Urine Blood SMALL H Urine Ascorbic Acid 20 H Discharge - Discharge Clinical Impression: Hyperglycemia, Nausea, Sore throat Condition: Stable Disposition: HOME, SELF-CARE Instructions: Hyperglycemia ([facility]) Additional Instructions: As we discussed you have been seen and treated in the emergency department for an elevation in your blood sugars. Your rapid strep test was negative for bacteria. Please make sure you keep a close eye on your sugars for the next couple of days. Please also make sure you follow-up with your primary care pr ovider in the next 12 to 24 hours. Return to the emergency room for any concerns. Forms: Return to Work Referrals: [facility] [Primary Care Provider] - Follow up as needed
[2019-01-26 19:32] VITALS: BP 117/70
== END 2019-01-26 19:32 | disposition home or self-care (01) ==
LOC: ER 13:12
DX: E10.65 Type 1 diabetes mellitus with hyperglycemia (principal); R19.7 Diarrhea, unspecified; R11.0 Nausea; J02.9 Acute pharyngitis, unspecified; Z88.8 Allergy status to other drugs, medicaments and biological substances
CPT/HCPCS: 36415; 87070; 87880; 82962; 85025; 81025; 80053; 81001; 82803; J2405; J7120; 96361; 96374; 99284

== ENCOUNTER 2019-04-29 08:31 | Emergency (ER) | payer OTHER ==
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
[2019-04-29 11:17] VITALS: BP 112/89
== END 2019-04-29 11:33 | disposition home or self-care (01) ==
LOC: ER 08:31
DX: S16.1XXA Strain of muscle, fascia and tendon at neck level, initial encounter (principal); S29.012A Strain of muscle and tendon of back wall of thorax, initial encounter; M25.511 Pain in right shoulder; M54.2 Cervicalgia; R07.1 Chest pain on breathing; V49.50XA Passenger injured in collision with unspecified motor vehicles in traffic accident, initial encounter; Y93.89 Activity, other specified; M62.830 Muscle spasm of back; E11.9 Type 2 diabetes mellitus without complications
CPT/HCPCS: 71046; 72040; 99283

== ENCOUNTER 2019-07-14 13:30 | Emergency (ER) | payer OTHER ==
--- NOTE | 2019-07-14 13:52 | ER Document Report ---
ED General - General Stated Complaint: HIGH BLOOD SUGAR Notes: Patient is a 28-year-old -[place] female with a history of diabetes that is insulin-dependent who presents to the emergency department with a chief complaint of suspected adverse reaction to the new diabetes medication Apidra. She states that she was previously on NovoLog and Levemir. States she was doing well with that but her [facility] try [facility] switch her to Apidra. She states she ran out of NovoLog last night started using a Apidra this morning used it for breakfast and lunch. She states she noticed a lag in her blood sugars after dosing herself with her normal units. She states her sugar did come down but it took longer than she expected. She states in addition of this she is felt generalized fatigue and had what she describes as transient intermittent episodes of foggy thinking and visual disturbances. She denies any cough, chest pain, shortness of breath, abdominal pain, urinary complaints, recent travel, fever or known sick contacts. TRAVEL OUTSIDE OF THE [place] IN LAST 30 DAYS: No - Related Data Allergies/Adverse Reactions: insulin degludec [From Tresiba FlexTouch U-100] Allergy (Verified 01/26/19 13:31) insulin glargine [From Lantus U-100 Insulin] Adverse Reaction (Verified 01/26/19 13:31) Past Medical History - Social History Smoking Status: Unknown if Ever Smoked Family History: None, Reviewed & Not Pertinent Pulmonary Medical History: Denies: Hx Tuberculosis Neurological Medical History: Reports: Hx Migraine Endocrine Medical History: Reports: Hx Diabetes Mellitus Type 1 Renal/ Medical History: Reports: Hx Ovarian Cysts. Denies: Hx Peritoneal Dialysis Psychiatric Medical History: Denies: Hx Depression Past Surgical History: Denies: Hx Pacemaker - Immunizations Immunizations up to date: Yes Hx Diphtheria, Pertussis, Tetanus Vaccination: Yes Review of Systems - Review of Systems Constitutional: Weakness EENT: Blurred vision -: Yes All other systems reviewed and negative Physical Exam - General General appearance: Appears well, Alert In distress: None - HEENT Head: Normocephalic Eyes: Normal Conjunctiva: Normal Extraocular movements intact: Yes Pupils: PERRL Mouth/Lips: Normal Mucous membranes: Moist Neck: Supple - Respiratory Respiratory status: No respiratory distress, Other - Equal chest rise and fall - Extremities General upper extremity: Normal inspection General lower extremity: Normal inspection - Neurological Neuro grossly intact: Yes Cognition: Normal Orientation: AAOx4 Clement Coma Scale Eye Opening: Spontaneous [place] Coma Scale Verbal: Oriented Clement Coma Scale Motor: Obeys Commands Clement Coma Scale Total: 15 Speech: Normal - Psychological Associated symptoms: Normal affect, Normal mood - Skin Skin Temperature: Warm Skin Moisture: Dry Skin Color: Normal Course - Re-evaluation Re-evalutation: 07/14/19 15:56 Patient's blood glucose seems to be controlled. She will discuss with her primary provider her concerns regarding Apidra and desire to switch back to NovoLog. She states she has paperwork to turn into them today and will do so. She has a UTI on urinalysis. We will treat with Bactrim. Counseled her at length regarding the importance of outpatient follow-up and advised she return here or any ER immediately with any new, persistent or worsening symptoms. She verbalized understood and agreed. - Laboratory Result Diagrams: 07/14/19 14:04 07/14/19 14:04 Laboratory results interpreted by me: 07/14/19 07/14/19 07/14/19 14:04 14:04 14:04 Hgb 11.6 L Hct 35.5 L MCH 26.2 L Sodium 135.8 L Creatinine 0.41 L Glucose 197 H POC Glucose Total Protein 8.3 H Urine Protein 100 H Urine Glucose (UA) >=500 H Leukocyte Esterase Rfl LARGE H Urine Ascorbic Acid 40 H 07/14/19 15:24 Hgb Hct MCH Sodium Creatinine Glucose POC Glucose 121 H Total Protein Urine Protein Urine Glucose (UA) Leukocyte Esterase Rfl Urine Ascorbic Acid Discharge - Discharge Clinical Impression: Diabetes Qualifiers: Diabetes mellitus type: other specified (including CATHIE) Diabetes mellitus senior living insulin use: with director of customer acquisition use Diabetes mellitus complication status: with other specified complication Qualified Code(s): E13.69 - Other specified diabetes mellitus with other specified complication UTI (urinary tract infection) Qualifiers: Urinary tract infection type: site unspecified Hematuria presence: with hematuria Qualified Code(s): N39.0 - Urinary tract infection, site not specified Condition: Stable Disposition: HOME, SELF-CARE Instructions: Urinary Tract Infection ([facility]) Additional Instructions: Follow-up with your regular doctor in 2 to 3 days for reevaluation. Return here or any ER immediately with any new, persistent or worsening symptoms. Prescriptions: Sulfamethoxazole/Trimethoprim [Bactrim Ds Tablet] 1 each PO Q12 #20 tablet
[2019-07-14 14:37] LABS: ABSOLUTE EOSINOPHILS # (AUTO) 0.1 10^3/uL (0.0-0.6); ABSOLUTE LYMPHOCYTES (AUTO) 2.8 10^3/uL (0.5-4.7); ABSOLUTE MONOCYTES (AUTO) 0.4 10^3/uL (0.1-1.4); BASOPHILS % (AUTO) 0.5 % (0-2); EOSINOPHILS % (AUTO) 1.2 % (0-6); HEMATOCRIT 35.5 % (36.0-47.0); HEMOGLOBIN 11.6 g/dL (12.0-15.5); LYMPHOCYTES % (AUTO) 30.1 % (13-45); MEAN CORPUSCULAR HEMOGLOBIN 26.2 pg (27.0-33.4); MEAN CORPUSCULAR HGB CONC 32.5 g/dL (32.0-36.0); MEAN CORPUSCULAR VOLUME 81 fl (80-97); MONOCYTES % (AUTO) 4.1 % (3-13); PLATELET COUNT 339 10^3/uL (150-450); RED BLOOD COUNT 4.41 10^6/uL (3.72-5.28); RED CELL DISTRIBUTION WIDTH 13.6 % (11.5-14.0); SEGMENTED NEUTROPHILS % (AUTO) 64.1 % (42-78); TOTAL CELLS COUNTED % (AUTO) 100 %; WHITE BLOOD COUNT 9.4 10^3/uL (4.0-10.5)
[2019-07-14 14:55] LABS: ALBUMIN 4.5 g/dL (3.5-5.0); ALKALINE PHOSPHATASE 100 U/L (38-126); ANION GAP 10 (5-19); ASPARTATE AMINO TRANSFERASE 29 U/L (14-36); BILIRUBIN,TOTAL 0.6 mg/dL (0.2-1.3); BLOOD UREA NITROGEN 12 mg/dL (7-20); CALCIUM 9.8 mg/dL (8.4-10.2); CARBON DIOXIDE 28 mmol/L (22-30); CHLORIDE 98 mmol/L (98-107); GLUCOSE 197 mg/dL (75-110); POTASSIUM 3.9 mmol/L (3.6-5.0); TOTAL PROTEIN 8.3 g/dL (6.3-8.2)
[2019-07-14 15:25] LABS: APPEARANCE,URINE CLOUDY; BILIRUBIN,URINE NEGATIVE (NEGATIVE); COLOR,URINE YELLOW; GLUCOSE, URINE >=500 mg/dL (NEGATIVE); KETONES,URINE NEGATIVE (NEGATIVE); PROTEIN,URINE 100 mg/dL (NEGATIVE); URINE SPECIFIC GRAVITY 1.031; UROBILINOGEN,URINE NEGATIVE mg/dL (<2.0)
[2019-07-14 16:09] VITALS: BP 127/93
== END 2019-07-14 16:16 | disposition home or self-care (01) ==
LOC: ER 13:30
DX: E10.8 Type 1 diabetes mellitus with unspecified complications (principal); N39.0 Urinary tract infection, site not specified; R53.83 Other fatigue; H53.9 Unspecified visual disturbance; Z88.8 Allergy status to other drugs, medicaments and biological substances
CPT/HCPCS: 36415; 80053; 81001; 82962; 84703; 85025; 99284

== ENCOUNTER 2019-10-25 01:42 | Emergency (ER) | payer SELFPAY ==
[2019-10-25] MEDS ORDERED: ONDANSETRON HCL INJ/PF 4 MG/2 ML SDV IV ONE (03:08)
[2019-10-25] MEDS ORDERED: NORMAL SALINE 1000 ML 1,000 ML IV PRN (03:08)
[2019-10-25] MEDS ORDERED: SUCRALFATE 1 GM TABLET PO ONE (03:08)
[2019-10-25] MEDS ORDERED: MAG HYDROX/AL HYDROX/SIMETH SUSP 30 ML UDCUP PO ONE (03:08)
--- NOTE | 2019-10-25 04:07 | ER Document Report ---
ED General - General Chief Complaint: Nausea/Vomiting/Diarrhea Stated Complaint: NAUSEA/VOMITING/DIARRHEA Time Seen by Provider: 10/25/19 01:50 TRAVEL OUTSIDE OF THE [place] IN LAST 30 DAYS: No - HPI Notes: 29-year-old female history of insulin-dependent diabetes presents with nausea vomiting diarrhea for several hours prior to arrival. Patient says that she was in usual state of health and had a turkey sandwich and shortly after began feeling overall abdominal discomfort with cramping intermittent pain and associated with several episodes of loose nonbloody nonblack diarrhea and few episodes of nonbloody nonbilious emesis. Patient currently feels improved but still has mild diffuse abdominal discomfort. Patient says her blood sugars have been running in the 200s recently because she was out of Levemir which she just recently was able to purchase. patient denies any sick contacts, recent travel, cough, shortness of breath, chest pain, dizziness, syncope, trauma, prior abdominal surgeries, rashes, recent antibiotics - Related Data Allergies/Adverse Reactions: insulin degludec [From Tresiba FlexTouch U-100] Allergy (Verified 01/26/19 13:31) sitagliptin [From Januvia] Allergy (Verified 10/25/19 02:34) insulin glargine [From Lantus U-100 Insulin] Adverse Reaction (Verified 01/26/19 13:31) Past Medical History - General Information source: Patient - Social History Smoking Status: Never Smoker Frequency of alcohol use: None Drug Abuse: None Family History: None, Reviewed & Not Pertinent Patient has homicidal ideation: No Pulmonary Medical History: Denies: Hx Tuberculosis Neurological Medical History: Reports: Hx Migraine Endocrine Medical History: Reports: Hx Diabetes Mellitus Type 1 Renal/ Medical History: Reports: Hx Ovarian Cysts. Denies: Hx Peritoneal Dialysis Psychiatric Medical History: Denies: Hx Depression Past Surgical History: Denies: Hx Pacemaker - Immunizations Immunizations up to date: Yes Hx Diphtheria, Pertussis, Tetanus Vaccination: Yes Review of Systems - Review of Systems Notes: REVIEW OF SYSTEMS: CONSTITUTIONAL : Denies fever, chills, or sweats. EENT: Denies recent cold/sinus symptoms, denies throat pain CARDIOVASCULAR: Denies chest pain, DEISY RESPIRATORY: Denies cough, denies shortness of breath. GASTROINTESTINAL: + abdominal pain, +nausea/vomiting. GENITOURINARY: Denies difficulty urinating, painful urination. FEMALE GENITOURINARY: Denies abnormal vaginal bleeding, vaginal discharge. MUSCULOSKELETAL: Denies neck pain, back pain. SKIN: Denies rash or skin lesions. HEMATOLOGIC : Denies easy bruising or bleeding. LYMPHATIC: Denies swollen, enlarged glands. NEUROLOGICAL: Denies headache, denies change in gait. PSYCHIATRIC: Denies anxiety or stress or depression. Physical Exam - Vital signs Vitals: Temp Pulse Resp BP Pulse Ox 98.2 F 95 15 147/87 H 100 10/25/19 02:17 10/25/19 02:17 10/25/19 02:17 10/25/19 02:17 10/25/19 02:17 - Notes Notes: PHYSICAL EXAMINATION: GENERAL: Well-appearing, well-nourished and in no acute distress. HEAD: Atraumatic, normocephalic. EYES: Pupils equal round and appropriate constriction, sclera anicteric, conjunctiva are normal. ENT: nares patent, dry mucous membranes. NECK: Normal range of motion, supple without lymphadenopathy LUNGS: Breath sounds clear to auscultation bilaterally and equal. No wheezes rales or rhonchi. HEART: Regular rate and rhythm without murmurs ABDOMEN: Soft, nontender, no guarding, no masses, no CVAT EXTREMITIES: Normal range of motion, no pitting or edema. No cyanosis. NEUROLOGICAL: Awake, alert, conversing appropriately, moves all extremities spontaneously. PSYCH: Normal mood, normal affect. SKIN: Warm, Dry, normal turgor, no rashes or lesions noted. Course - Re-evaluation Re-evalutation: 10/25/19 04:06 Patient extremely well-appearing with benign symptoms that have already begun to improve, vital signs normal and abdominal exam nontender. Symptoms have improved since onset. No C. difficile risk factors. Likely acute gastroenteritis but rule out DKA. Will obtain labs, rule out electrolyte abnormalities, DKA, give fluids, reassess, likely discharge. 10/25/19 05:14 Labs were hemolyzed, currently being redrawn. 10/25/19 06:29 Mild leukocytosis consistent with acute gastroenteritis, no elevated anion gap, no acidosis (7.33 on venous gas is normal), patient continues to feel improved, tolerating p.o., patient ready for discharge with PCP follow-up. Patient given extensive return to ED precautions which she demonstrated understanding of. - Vital Signs Vital signs: Temp Pulse Resp BP Pulse Ox 98.5 F 93 12 130/76 H 100 10/25/19 06:52 10/25/19 06:52 10/25/19 06:52 10/25/19 06:52 10/25/19 06:52 - Laboratory Result Diagrams: 10/25/19 05:21 10/25/19 05:21 Laboratory results interpreted by me: 10/25/19 10/25/19 10/25/19 05:21 05:21 05:21 WBC 11.5 H Hgb 10.8 L Hct 33.1 L MCV 79 L MCH 25.7 L Absolute Neuts (auto) 9.2 H Seg Neutrophils % 80.7 H VBG HCO3 19.8 L Sodium 133.6 L Carbon Dioxide 19 L Creatinine 0.36 L Glucose 285 H POC Glucose Albumin 3.4 L 10/25/19 06:04 WBC Hgb Hct MCV MCH Absolute Neuts (auto) Seg Neutrophils % VBG HCO3 Sodium Carbon Dioxide Creatinine Glucose POC Glucose 243 H Albumin Discharge - Discharge Clinical Impression: Gastroenteritis, Hyperglycemia Disposition: HOME, SELF-CARE Additional Instructions: Gastroenteritis You most likely have gastroenteritis. This is an irritation of the stomach and intestinal tract. It's usually caused by a virus, but can also be caused by bacteria, toxins that cause food poisoning, or excessive alcohol intake. Symptoms may include fever, painful abdominal cramps, nausea, vomiting, and diarrhea. Start with small amounts (two to six ounces) of clear liquids (soft drinks, herb teas, broth, etc). Try to take fluids frequently even if you are vomiting, to prevent dehydration. When liquids are being consumed successfully, advance to small amounts of bland food (mashed potato, toast) for 6 - 12 hours. Gastroenteritis rarely requires medication. It goes away by itself. Use good handwashing so you don't spread germs. Wash underwear in very hot water. If symptoms are severe, talk to the doctor. Call your physician if blood appears in your vomitus or stool, if vomiting lasts longer than 24 hours, if the abdominal pain worsens or becomes localized to one area, or if you develop high fever. Hyperglycemia (High Blood Sugar) You will be scheduled for further evaluation. It's very important that you follow through, to see if the blood sugar returns to normal levels. Uncontrolled high blood sugar leads to early heart disease, strokes, nerve damage, eye damage, and kidney damage. Call the physician if there is faintness, excess sleepiness, or very rapid breathing. Follow-up with your primary doctor within 3 days. Return to the ED for able to keep down liquids by mouth, have black or bloody stool, dizziness, fainting, or any other worsening or alarming symptoms. Prescriptions: Ondansetron [Zofran Odt 4 mg Tablet] 1 tab PO Q6HP PRN #6 tab.rapdis PRN Reason: For Nausea/Vomiting Phenobarb/Hyoscy/Atropine/Scop [ Tablet] 16.2 mg PO QIDP PRN #10 tablet PRN Reason:
[2019-10-25 05:38] LABS: ABSOLUTE LYMPHOCYTES (AUTO) 1.5 10^3/uL (0.5-4.7); ABSOLUTE MONOCYTES (AUTO) 0.7 10^3/uL (0.1-1.4); ABSOLUTE NEUT (AUTO) 9.2 10^3/uL (1.7-8.2); BASOPHILS % (AUTO) 0.3 % (0-2); EOSINOPHILS % (AUTO) 0.3 % (0-6); HEMATOCRIT 33.1 % (36.0-47.0); HEMOGLOBIN 10.8 g/dL (12.0-15.5); MEAN CORPUSCULAR HEMOGLOBIN 25.7 pg (27.0-33.4); MEAN CORPUSCULAR HGB CONC 32.6 g/dL (32.0-36.0); MEAN CORPUSCULAR VOLUME 79 fl (80-97); MONOCYTES % (AUTO) 5.7 % (3-13); RED BLOOD COUNT 4.19 10^6/uL (3.72-5.28); RED CELL DISTRIBUTION WIDTH 13.1 % (11.5-14.0); SEGMENTED NEUTROPHILS % (AUTO) 80.7 % (42-78); TOTAL CELLS COUNTED % (AUTO) 100 %; WHITE BLOOD COUNT 11.5 10^3/uL (4.0-10.5)
[2019-10-25 05:47] LABS: VENOUS BLOOD BASE EXCESS -5.7 mmol/L; VENOUS BLOOD HCO3 19.8 mmol/L (20-32); VENOUS BLOOD PCO2 38.7 mmHg (35-63); VENOUS BLOOD PH 7.33 (7.30-7.42)
[2019-10-25 05:55] LABS: ALBUMIN 3.4 g/dL (3.5-5.0); ALKALINE PHOSPHATASE 90 U/L (38-126); ANION GAP 9 (5-19); ASPARTATE AMINO TRANSFERASE 17 U/L (14-36); BILIRUBIN,TOTAL 0.4 mg/dL (0.2-1.3); BLOOD UREA NITROGEN 11 mg/dL (7-20); CALCIUM 8.8 mg/dL (8.4-10.2); CARBON DIOXIDE 19 mmol/L (22-30); CHLORIDE 106 mmol/L (98-107); GLUCOSE 285 mg/dL (75-110); POTASSIUM 4.1 mmol/L (3.6-5.0); TOTAL PROTEIN 6.5 g/dL (6.3-8.2)
[2019-10-25 06:09] LABS: PLATELET COUNT 247 10^3/uL (150-450)
[2019-10-25 06:53] VITALS: BP 130/76
== END 2019-10-25 07:07 | disposition home or self-care (01) ==
LOC: ER 01:42
DX: K52.9 Noninfective gastroenteritis and colitis, unspecified (principal); E10.65 Type 1 diabetes mellitus with hyperglycemia; R10.9 Unspecified abdominal pain; R11.2 Nausea with vomiting, unspecified; Z79.4 Long term (current) use of insulin
CPT/HCPCS: 99284; 96361; 96374; 36415; 82962; 83690; 84703; 85025; 80053; 82803; J2405; J7030

== ENCOUNTER 2020-02-01 11:00 | Emergency (ER) | payer SELFPAY ==
[2020-02-01] MEDS ORDERED: NORMAL SALINE 1000 ML 1,000 ML IV ONE (11:50)
--- NOTE | 2020-02-01 11:54 | ER Document Report ---
ED Medical Screen (RME) - General Chief Complaint: High Blood Sugar Stated Complaint: BLOOD SUGAR PROBLEMS, VAGINAL ISSUES Time Seen by Provider: 02/01/20 11:48 Mode of Arrival: Ambulatory Information source: Patient Notes: 29-year-old female presents to ED for elevated blood sugar. Patient states she is a type I diabetic and her blood sugar has been around 500 for the last 24 hours. She states she did take a lot of extra insulin yesterday and ended up having a low blood sugar last night but this morning when she got up her blood sugar was almost 500 again. It is 258 in the triage area. I have greeted and performed a rapid initial assessment of this patient. A comprehensive ED assessment and evaluation of the patient, analysis of test results and completion of medical decision making process will be conducted by an additional ED providers. TRAVEL OUTSIDE OF THE [place] IN LAST 30 DAYS: No - Related Data Allergies/Adverse Reactions: insulin degludec [From Tresiba FlexTouch U-100] Allergy (Verified 01/26/19 13:31) sitagliptin [From Januvia] Allergy (Verified 10/25/19 02:34) insulin glargine [From Lantus U-100 Insulin] Adverse Reaction (Verified 01/26/19 13:31) Past Medical History - Social History Family history: Reviewed & Not Pertinent Pulmonary Medical History: Denies: Hx Tuberculosis Neurological Medical History: Reports: Hx Migraine Endocrine Medical History: Reports: Hx Diabetes Mellitus Type 1 Renal/ Medical History: Reports: Hx Ovarian Cysts. Denies: Hx Peritoneal Dialysis Psychiatric Medical History: Denies: Hx Depression Past Surgical History: Denies: Hx Pacemaker - Immunizations Immunizations up to date: Yes Hx Diphtheria, Pertussis, Tetanus Vaccination: Yes Physical Exam - Vital signs Vitals: Temp Pulse Resp BP Pulse Ox 98.5 F 82 16 140/82 H 99 02/01/20 11:34 02/01/20 11:34 02/01/20 11:34 02/01/20 11:34 02/01/20 11:34 Course - Vital Signs Vital signs: Temp Pulse Resp BP Pulse Ox 98.5 F 82 16 140/82 H 99 02/01/20 11:34 02/01/20 11:34 02/01/20 11:34 02/01/20 11:34 02/01/20 11:34
[2020-02-01 12:34] LABS: ABSOLUTE BASOPHILS # (AUTO) 0.1 10^3/uL (0.0-0.2); ABSOLUTE EOSINOPHILS # (AUTO) 0.1 10^3/uL (0.0-0.6); ABSOLUTE LYMPHOCYTES (AUTO) 2.1 10^3/uL (0.5-4.7); ABSOLUTE MONOCYTES (AUTO) 0.4 10^3/uL (0.1-1.4); ABSOLUTE NEUT (AUTO) 5.9 10^3/uL (1.7-8.2); BASOPHILS % (AUTO) 0.6 % (0-2); EOSINOPHILS % (AUTO) 1.3 % (0-6); HEMATOCRIT 34.7 % (36.0-47.0); HEMOGLOBIN 11.3 g/dL (12.0-15.5); LYMPHOCYTES % (AUTO) 24.1 % (13-45); MEAN CORPUSCULAR HEMOGLOBIN 26.3 pg (27.0-33.4); MEAN CORPUSCULAR HGB CONC 32.5 g/dL (32.0-36.0); MEAN CORPUSCULAR VOLUME 81 fl (80-97); MONOCYTES % (AUTO) 4.9 % (3-13); PLATELET COUNT 338 10^3/uL (150-450); RED BLOOD COUNT 4.28 10^6/uL (3.72-5.28); RED CELL DISTRIBUTION WIDTH 13.4 % (11.5-14.0); SEGMENTED NEUTROPHILS % (AUTO) 69.1 % (42-78); TOTAL CELLS COUNTED % (AUTO) 100 %; WHITE BLOOD COUNT 8.5 10^3/uL (4.0-10.5)
[2020-02-01 12:35] LABS: APPEARANCE,URINE SLIGHTLY-CLOUDY; BILIRUBIN,URINE NEGATIVE (NEGATIVE); COLOR,URINE YELLOW; GLUCOSE, URINE >=500 mg/dL (NEGATIVE); KETONES,URINE NEGATIVE (NEGATIVE); LEUKOCYTE ESTERASE,URINE NEGATIVE (NEGATIVE); NITRITE,URINE NEGATIVE (NEGATIVE); PROTEIN,URINE NEGATIVE (NEGATIVE); URINE SPECIFIC GRAVITY 1.035; UROBILINOGEN,URINE NEGATIVE mg/dL (<2.0)
[2020-02-01 12:36] LABS: VENOUS BLOOD BASE EXCESS 1.9 mmol/L; VENOUS BLOOD HCO3 28.9 mmol/L (20-32); VENOUS BLOOD PCO2 56.6 mmHg (35-63); VENOUS BLOOD PH 7.33 (7.30-7.42)
--- NOTE | 2020-02-01 12:41 | ER Document Report ---
ED Blood Sugar Problem - General Chief Complaint: High Blood Sugar Stated Complaint: BLOOD SUGAR PROBLEMS, VAGINAL ISSUES Time Seen by Provider: 02/01/20 11:48 Mode of Arrival: Ambulatory Information source: Patient TRAVEL OUTSIDE OF THE [place] IN LAST 30 DAYS: No - HPI Notes: Patient presents complaining of high blood sugar. She states that several days ago she had her refrigerator stopped working. She states her refrigerator is now been replaced however she is afraid that the insulin that was stored in the refrigerator may be bad. She states her sugars been 500 roughly for 2 days. She states she has some diarrhea a week ago but since then has had no vomiting no diarrhea. She has not had any pain. She has not had any weakness or fatigue. She has had no change of appetite or exercise. She has had no fever sweats or chills. She states she try to get some replacement insulin but was unable to get the free insulin that she usually does and they wanted to charge her $180 which she was not able to purchase. - Related Data Allergies/Adverse Reactions: insulin degludec [From Tresiba FlexTouch U-100] Allergy (Verified 01/26/19 13:31) sitagliptin [From Januvia] Allergy (Verified 10/25/19 02:34) insulin glargine [From Lantus U-100 Insulin] Adverse Reaction (Verified 01/26/19 13:31) Past Medical History - General Information source: Patient - Social History Smoking Status: Never Smoker Frequency of alcohol use: None Drug Abuse: None Family History: None, Reviewed & Not Pertinent Pulmonary Medical History: Denies: Hx Tuberculosis Neurological Medical History: Reports: Hx Migraine Endocrine Medical History: Reports: Hx Diabetes Mellitus Type 1 Renal/ Medical History: Reports: Hx Ovarian Cysts. Denies: Hx Peritoneal Dialysis Psychiatric Medical History: Denies: Hx Depression Past Surgical History: Denies: Hx Pacemaker - Immunizations Immunizations up to date: Yes Hx Diphtheria, Pertussis, Tetanus Vaccination: Yes Review of Systems - Review of Systems Constitutional: denies: Chills, Fever Cardiovascular: denies: Chest pain, Palpitations Respiratory: denies: Cough, Short of breath -: Yes All other systems reviewed and negative Physical Exam - Vital signs Vitals: Temp Pulse Resp BP Pulse Ox 98.5 F 82 16 140/82 H 99 02/01/20 11:34 02/01/20 11:34 02/01/20 11:34 02/01/20 11:34 02/01/20 11:34 Interpretation: Normal - General General appearance: Appears well, Alert - HEENT Head: Normocephalic, Atraumatic Eyes: Normal Pupils: PERRL - Respiratory Respiratory status: No respiratory distress Chest status: Nontender Breath sounds: Normal Chest palpation: Normal - Cardiovascular Rhythm: Regular Heart sounds: Normal auscultation Murmur: No - Abdominal Inspection: Normal Distension: No distension Bowel sounds: Normal Tenderness: Nontender Organomegaly: No organomegaly - Back Back: Normal, Nontender - Extremities General upper extremity: Normal inspection, Nontender, Normal color, Normal ROM, Normal temperature General lower extremity: Normal inspection, Nontender, Normal color, Normal ROM, Normal temperature, Normal weight bearing. No: Cierra's sign - Neurological Neuro grossly intact: Yes Cognition: Normal Orientation: AAOx4 Jerome Coma Scale Eye Opening: Spontaneous Jerome Coma Scale Verbal: Oriented Jerome Coma Scale Motor: Obeys Commands Clement Coma Scale Total: 15 Speech: Normal Motor strength normal: LUE, RUE, LLE, RLE Sensory: Normal - Psychological Associated symptoms: Normal affect, Normal mood - Skin Skin Temperature: Warm Skin Moisture: Dry Skin Color: Normal Course - Re-evaluation Re-evalutation: 02/01/20 14:49 Patient presents stating her sugars been running 500 at home. Here her sugars are 400. Patient was also concerned that her insulin may have been rendered useless secondary to her fridge ceasing to work. However she now has a new fridge and it appears that her insulin is working as her sugars here are 240 after taking some of her insulin at home. I did have social work consult on the patient to see if there is anything they could do to help the patient obtain insulin at a cheaper howe or to obtain outpatient follow-up. Social work says patient has been taken out of the system since she has not been going to her outpatient appointments. We have arranged for the patient to be seen again in clinic and I have educated the patient about the need to keep her appointments regularly. - Vital Signs Vital signs: Temp Pulse Resp BP Pulse Ox 98.5 F 82 16 140/82 H 99 02/01/20 11:34 02/01/20 11:34 02/01/20 11:34 02/01/20 11:34 02/01/20 11:34 - Laboratory Result Diagrams: 02/01/20 12:12 02/01/20 12:12 Laboratory results interpreted by me: 02/01/20 02/01/20 02/01/20 12:12 12:12 12:12 Hgb 11.3 L Hct 34.7 L MCH 26.3 L Sodium 135.9 L Creatinine 0.48 L Glucose 241 H Urine Glucose (UA) >=500 H Discharge - Discharge Clinical Impression: Hyperglycemia due to diabetes mellitus Condition: Stable Disposition: HOME, SELF-CARE Instructions: Diabetes ([facility]) Additional Instructions: Please keep your appointment at clinic as scheduled If you do not keep your blood sugar under control creatinine 2 kidney failure, blindness, strokes, heart attack, and even . Please take your medications for your diabetes as prescribed and please monitor your sugars and your diet regularly. Please return if your blood sugars remain elevated above 400 and do not come down with insulin. Forms: Return to Work Referrals: [facility] [Provider Group] - Follow up as needed (follow up as instructed by social work)
[2020-02-01 12:56] LABS: ALKALINE PHOSPHATASE 88 U/L (38-126); ANION GAP 9 (5-19); ASPARTATE AMINO TRANSFERASE 23 U/L (14-36); BILIRUBIN,TOTAL 0.4 mg/dL (0.2-1.3); BLOOD UREA NITROGEN 14 mg/dL (7-20); CALCIUM 10.1 mg/dL (8.4-10.2); CARBON DIOXIDE 28 mmol/L (22-30); CHLORIDE 99 mmol/L (98-107); CREATINE KINASE 67 U/L (30-135); GLUCOSE 241 mg/dL (75-110); POTASSIUM 3.9 mmol/L (3.6-5.0); TOTAL PROTEIN 7.3 g/dL (6.3-8.2)
[2020-02-01 14:06] LABS: CHLAM PCR NOT DETECTED (NOT DETECT)
[2020-02-01] MEDS ORDERED: ONDANSETRON 4 MG TAB.RAPDIS PO ONE (14:59)
[2020-02-01] MEDS ORDERED: BUTALB/ACETAMINOPHEN/CAFFEINE 1 TAB EACH PO ONE (14:59)
[2020-02-01 15:02] VITALS: BP 134/74
--- NOTE | 2020-02-01 18:59 | EKG REPORT ---
SEVERITY:- BORDERLINE ECG - SINUS RHYTHM BORDERLINE T ABNORMALITIES, ANTERIOR LEADS : Confirmed by: Jef Estevez MD 01-Feb-2020 18:58:45
== END 2020-02-01 15:00 | disposition home or self-care (01) ==
LOC: ER 11:00
DX: E10.65 Type 1 diabetes mellitus with hyperglycemia (principal); Z79.4 Long term (current) use of insulin; Z88.8 Allergy status to other drugs, medicaments and biological substances
CPT/HCPCS: 93005; 99284; 96360; 82962; 36415; 82550; 85025; 80053; 81001; 87491; 87591; 82803; 93010; J3490; S0119; J7030